=== PATIENT | male | born 1975 | race Caucasian/White ===

== ENCOUNTER 2018-06-04 11:29 | Emergency (ER) | payer OTHER, SELFPAY ==
[2018-06-04 11:31] VITALS: BP 154/98; PULSE 70; RESP 16; TEMP 36.8; O2SAT 98; BMI 32.8
[2018-06-04 11:43] VITALS: O2SAT 97
--- NOTE | 2018-06-04 11:43 | RAD_ITS ---
STUDY: X-RAY CHEST REASON FOR EXAM: Male, 42 years old. Chest pain TECHNIQUE: Single AP portable view of the chest. COMPARISON: None. FINDINGS: Cardiac monitoring leads overlie the chest. The lungs are clear and expanded. There is no demonstrated pleural abnormality. Normal size heart. Normal mediastinum and shola. Normal visualized pulmonary arteries. Normal visualized aortic arch and descending thoracic aorta. Normal visualized thoracic spine. Normal visualized ribs, clavicles, and shoulders. There is no demonstrated abnormality of the visualized soft tissue structures of the upper abdomen. RAD/Chest 1 View (Portable) IMPRESSION: Normal x-ray examination of the chest. Electronically Signed: Colt Clemente DO at 12:13 EDT Tel , Service support ,
--- NOTE | 2018-06-04 11:43 | EKG12_ITS ---
Test Reason : CP Blood Pressure : / mmHG Vent. Rate : 063 BPM Atrial Rate : 063 BPM P-R Int : 172 ms QRS Dur : 086 ms QT Int : 406 ms P-R-T Axes : 040 000 -14 degrees QTc Int : 415 ms Normal sinus rhythm Normal ECG Confirmed by ALEIDA HARRIS, CHAPINCITO ([id number]), book or script editor DEJAH KOCH ([id number]) on 06/05/2018 12:59:29 PM Referred By: LUIS ALFREDO Confirmed By:CHAPINCITO SHIN MD
[2018-06-04] MEDS: Aspirin 81 MG TAB.CHEW 324 MG PO (12:01)
[2018-06-04] MEDS: 0.9% Normal Saline 1,000 ML 1000 ML IV (12:06)
[2018-06-04 12:19] LABS: Absolute Lymphocyte Count 2.01 X10^3/ul (0.83-4.51); Absolute Neutrophil Count 4.5 X10^3/uL (2.0-7.7); Basophil# 0.02 X10^3/uL; Basophil% 0.3 % (0-1); Eosinophil# 0.27 X10^3/uL; Eosinophils% 3.6 % (0-5); Hematocrit 43.4 % (40-54); Lymphocyte # 2.01 X10^3/ul (4.0); Lymphocyte % 26.8 % (19-41); Mean Corp Hgb Conc 34.6 g/gl (32-36); Mean Corpuscular Hgb 30.6 pg (27.0-32.0); Mean Corpuscular Volume 88.6 fL (80-94); Mean Platelet Vol. 9.4 fl (6.2-12.0); Monocyte# 0.69 X10^3/uL; Monocyte% 9.2 % (0-10); Neutrophil # 4.49 X10^3/uL (2.7-7.7); Neutrophil % 59.8 % (47-70); Platelet Count 180 K/mm3 (150-450); RBC Distribution Width CV 12.8 % (11.6-14.6); RBC Distribution Width SD 40.8 fl (35.1-43.9); White Blood Count 7.5 K/mm3 (4.4-11.0)
[2018-06-04 12:29] LABS: Anion Gap 6 (5-15); BUN 15 mg/dL (7-18); BUN/Creat Ratio 14.2 RATIO (10-20); Calcium,Total 8.5 mg/dL (8.5-10.1); Chloride 109 mmol/L (98-107); Creatinine, Serum 1.06 mg/dL (0.70-1.30); EST Glomerular Filtration Rate 80 mL/min (>60); Est Glom Filt Rate - Afr Amer 97 mL/min (>60); Estimated Creatinine Clearance 94.72 ml/min; Glucose 98 mg/dL (74-106); Potassium 3.7 mmol/L (3.5-5.1); Sodium Level 141 mmol/L (136-145)
[2018-06-04 12:35] LABS: POSITIVE COUNT NO; POSITIVE DIFFERENTIAL NO; POSITIVE MORPHOLOGY NO
--- NOTE | 2018-06-04 12:47 | EKG12_ITS ---
Test Reason : REPEAT Blood Pressure : / mmHG Vent. Rate : 057 BPM Atrial Rate : 057 BPM P-R Int : 192 ms QRS Dur : 086 ms QT Int : 414 ms P-R-T Axes : 037 008 -12 degrees QTc Int : 402 ms Sinus bradycardia Otherwise normal ECG Confirmed by ALEIDA HARRIS, CHAPINCITO ([id number]), communications editor DEJAH KOCH ([id number]) on 06/05/2018 12:59:42 PM Referred By: LUIS ALFREDO Confirmed By:CHAPINCITO SHIN MD
[2018-06-04 13:18] VITALS: BP 141/96; PULSE 75; RESP 13; O2SAT 100
[2018-06-04 14:08] VITALS: BP 145/99; PULSE 64; RESP 17; O2SAT 98
--- NOTE | 2018-06-04 14:41 | ED.DCSUM_ITS ---
- ER Visit Summary Date of Service: 06/04/18 Chief Complaint: Chest pain History of Present Illness: The patient is a [address] Kate. He reports that while undergoing light activity at 930 this morning he had the onset of a right-sided chest pain lasted 30-35 minutes. It was a sharp pain. Lasted approximately 30-35 minutes. It was worsened with movement of his right arm or torso. The pain is 10 and 10 at worst and is 1 out of 10 currently. States that he did make him nauseated, short of breath, diaphoretic. Reports that he has had this on and off for the past year. Is never been this severe. It is not related to exertion. Denies any chest pain or change in dyspnea exertion in the past month. No ankle swelling or calf pain. No personal family history of DVT. No recent travel. Physical Examination: Vitals: Stable. Afebrile. General: Well-nourished and well-developed. Head: Normocephalic atraumatic. Neck: Supple, no lymphadenopathy. No JVD. Nontender. Cardiovascular: Regular rate and rhythm. No murmurs. Respiratory: No respiratory distress. Clear to auscultation bilaterally. Chest is nontender. Abdominal: Soft, nontender, nondistended, normal bowel sounds. No guarding, rebound, or peritoneal signs. Back: Nontender. Extremities: Nontender, no edema. Skin: Normal color, no rash. Neurologic: Alert and oriented ?3. Cranial nerves II through XII are intact. Normal strength and sensation. Psych: Normal affect. Test Results: EKG is sinus at 63 with no acute changes. Repeat EKG is unchanged. Initial troponin is negative. Repeat troponin is negative. Chem-7 is more for chloride 109. CBC is normal. Chest x-ray is normal. Emergency Department Course and Treatment: Patient was treated with a dose of aspirin. He has had no further chest pain while here. Treatment Plan: Patient be discharged instructions follow-up his primary care physician as soon as possible for further evaluation. Return to the emergency department for any worsening symptoms. Disposition: To home in improved and stable condition. Impression: 1. Atypical chest pain. 2. LISA score of 0. This note was generated with [employer] dictation software. It may contain incorrect words, spelling, and punctuation that were not noted in review of the chart prior to signing ED Disposition - Plan for ED Patient: Disposition: Home or Assisted Living Chief Complaint: Chest Pain Instructions: ED Chest Pain Atypical Unkn Cause Referrals: Rashad Kate MD [Primary Care Provider] - 1-2 Days if not improving
[2018-06-04 15:07] VITALS: BP 135/90; BP 139/90; PULSE 72; RESP 20; O2SAT 97
== END 2018-06-04 15:08 | disposition home or self-care (01) ==
PROVIDERS: Emergency Provider Emergency Medicine; Family Provider Family Medicine; PCP Family Medicine
DX: R07.89 Other chest pain (principal); R06.00 Dyspnea, unspecified; R06.02 Shortness of breath
CPT/HCPCS: 36415; 71045; 80048; 84484; 85025; 93005; 96360; 96361; 99285; J7030; A4216

== ENCOUNTER 2023-04-04 17:01 | Emergency (ER) | payer OTHER, SELFPAY ==
[2023-04-04 17:02] VITALS: BP 148/78; PULSE 75; RESP 16; TEMP 36.9; O2SAT 98; BMI 33.8
--- NOTE | 2023-04-04 17:30 | EX.ED.DYSGE1 ---
HPI <GABBIE Antonio - Last Filed: 04/04/23 20:16> History of Present Illness Chief Complaint: Complaint Narrative Narrative: Patient presenting today due to increased urinary frequency and flank pain that he has had for the past 3 days. He states that the flank pain has been bilateral up until today where it is now located on the left side. He states that the pain seems to go away when he drinks a lot of water and urinates. He denies any dysuria or hematuria. He denies any fever, chills, penile discharge, history of kidney stones, abdominal pain, injury to his back, nausea, and vomiting. PFSH <GABBIE Antonio - Last Filed: 04/04/23 20:16> [facility] Medical History Back pain Home Medications NK 06/04/18 [History Last Taken Unknown] Allergy/AdvReac Type Severity Reaction Status Date / Time codeine Allergy HALLUCINATI Verified 04/04/23 17:05 ONS Social History Smoking Status: Never smoker ROS <GABBIE Antonio - Last Filed: 04/04/23 20:16> ROS ED Constitutional Constitutional ED: Denies chills, fever(s) or sweats Cardiovascular Cardiovascular: Denies chest pain Respiratory/Chest Respiratory/Chest: Denies cough or dyspnea Gastrointestinal Gastrointestinal: Denies abdominal pain, nausea or vomiting Genitourinary Genitourinary ED: Reports urinary frequency; Denies dysuria or hematuria Musculoskeletal Musculoskeletal: Reports back pain; Denies arthralgias or myalgias Integumentary Denies rash Neurologic Neurologic: Denies weakness Allergic/Immunologic Allergic/Immunologic ED: Denies urticaria EXAM <GABBIE Antonio - Last Filed: 04/04/23 20:16> Physical Exam Const Vital Signs: 04/04/23 17:02 Temperature 98.4 F Temperature Source Temporal Pulse Rate 75 Respiratory Rate 16 Blood Pressure 148/78 H Blood Pressure Mean 101 Pulse Ox 98 Oxygen Delivery Method Room Air Positive well nourished, well developed and no apparent distress General Appearance ED: well developed HEENT Reports normocephalic and head/scalp atraumatic Mouth ED: Yes moist mucous membranes normal Eyes PERRL and EOMs intact bilaterally Neck full ROM and supple Chest Wall inspection of chest normal Resp normal respiratory effort and clear to auscultation bilaterally Cardio regular rate and regular rhythm GI soft to palpation, non-tender, non-distended and no masses Back/Spine no CVA tenderness, normal ROM and normal to inspection General Back: Negative for CVA tenderness Thoracic Spine / Upper Back: Negative for thoracic spinal tenderness Lumbar Spine / Lower Back: Negative for lumbar spinal tenderness Extremity normal to inspection and full ROM Neuro oriented x3, CN's II-XII intact bilaterally, moves all extremities, no focal motor deficits and no sensory deficits noted Sensorium / Orientation: awake and alert Psych mental status grossly normal and thought process normal Skin no rashes or lesions noted and no wounds <Dr. Chinyere Leon DO - Last Filed: 04/08/23 13:54> Physical Exam Const Vital Signs: 04/04/23 17:02 Temperature 98.4 F Temperature Source Temporal Pulse Rate 75 Respiratory Rate 16 Blood Pressure 148/78 H Blood Pressure Mean 101 Pulse Ox 98 Oxygen Delivery Method Room Air MDM <GABBIE Antonio - Last Filed: 04/04/23 20:16> [facility] Narrative Medical decision making narrative: Patient presenting today due to increased urinary frequency and bilateral flank pain that he has had for the past 3 days. Today, the pain is now localized to the left flank only. The pain seems to go away when he drinks a lot of water. He does not have a history of UTIs or kidney stones. No CVA tenderness bilaterally or midline back tenderness. He is well-appearing and in no acute distress. He is afebrile. UA will be obtained to rule out UTI, will be obtained to rule out leukocytosis, anemia, electrolyte abnormality, and to assess kidney function. CT of the abdomen and pelvis without contrast will be obtained to rule out kidney stone and other abdominal etiology. Labs and urine are unremarkable and CT is unremarkable aside from fatty liver. I think patient's pain is likely musculoskeletal. He has been given supportive care measures and is to take anti-inflammatories for pain as needed. Does have a history of back spasms. He has been given return instructions and will be discharged home in stable condition. He is to follow-up with his PCP. He is comfortable with plan. Lab Data Attestation: I reviewed the patient's lab results. Labs: Laboratory Results - last 24 hr 04/04/23 04/04/23 04/04/23 18:10 18:46 18:46 WBC 8.4 RBC 4.97 Hgb 15.3 Hct 44.7 MCV 89.9 MCH 30.8 MCHC 34.2 RDW Std Deviation 39.7 RDW Coeff of Jeni 12.2 Plt Count 257 MPV 9.8 Immature Gran % (Auto) 0.400 Neut % (Auto) 51.9 Lymph % (Auto) 31.3 Eddy % (Auto) 10.9 H Eos % (Auto) 4.8 Baso % (Auto) 0.7 Absolute Neuts (auto) 4.3 Absolute Lymphs (auto) 2.61 Nucleated RBC % 0 Sodium 141 Potassium 3.8 Chloride 110 H Carbon Dioxide 24.0 Anion Gap 7 BUN 20 H Creatinine 0.96 Estim Creat Clear Calc 99.14 Est GFR (MDRD) Af Amer 107 Est GFR (MDRD) Non-Af 88 BUN/Creatinine Ratio 20.9 H Glucose 95 Calcium 9.9 Urine Color Yellow Urine Clarity Clear Urine pH 5.0 Ur Specific [place] 1.025 Urine Protein 15 H Urine Glucose (UA) Normal Urine Ketones Negative Urine Occult Blood Negative Urine Nitrite Negative Urine Bilirubin Negative Urine Urobilinogen Normal Ur Leukocyte Esterase Negative Urine RBC 0 SEEN Urine WBC 0 SEEN Ur Squamous Epith Cells 0 SEEN Urine Bacteria 0 SEEN Urine Mucus 0 SEEN Radiography Diagnostic Testing: Clinical Impression(s) from Imaging Studies Abdomen/Pelvis CT 04/04/23 19:00 IMPRESSION: 1. Enlarged fatty infiltrated liver. 2. No evidence of renal, ureteral abnormality. 3. Mild splenomegaly. 4. No acute intra-abdominal or pelvic process. Electronically Signed: Raul Hess DO at 19:24 EDT Reading Location ID and State: [address] [place] [address] Tel [phone], Service support , Image also reviewed and interpreted by attending ED physician. <Dr. Chinyere Leon DO - Last Filed: 04/08/23 13:54> [facility] Narrative Medical decision making narrative: Patient presenting today due to increased urinary frequency and bilateral flank pain that he has had for the past 3 days. Today, the pain is now localized to the left flank only. The pain seems to go away when he drinks a lot of water. He does not have a history of UTIs or kidney stones. No CVA tenderness bilaterally or midline back tenderness. He is well-appearing and in no acute distress. He is afebrile. UA will be obtained to rule out UTI, will be obtained to rule out leukocytosis, anemia, electrolyte abnormality, and to assess kidney function. CT of the abdomen and pelvis without contrast will be obtained to rule out kidney stone and other abdominal etiology. Labs and urine are unremarkable and CT is unremarkable aside from fatty liver. I think patient's pain is likely musculoskeletal. He has been given supportive care measures and is to take anti-inflammatories for pain as needed. Does have a history of back spasms. He has been given return instructions and will be discharged home in stable condition. He is to follow-up with his PCP. He is comfortable with plan. I have personally performed a face to face assessment of the patient and have reviewed the ELVIA Note. I performed a substantive portion of the visit including all aspects of the following. My posey findings include: History is patient is a 47-year-old male presenting with bilateral flank pain as well as urinary frequency. 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 He notes drinking water seems to help his pain. Did try taking some aspirin with no relief today. Denies any history of kidney stones or UTIs. Denies any testicular pain or swelling. Pain is not particularly reproducible on exam. Urinalysis is negative for any blood or leukocytosis. Given the negative urine and there is still a chance of call obstructing kidney stone, CT abdomen pelvis as well as basic labs are obtained. Patient's kidney function is normal with a GFR of 88. CBC largely normal. Patient is good distal pulses. CT of the abdomen pelvis does not show any acute process to explain his symptoms. Does have enlarged fatty infiltrated liver which is nonspecific does not explain his presentation. Patient informed of CT findings. Counseled on likely pain is muscle skeletal. Patient notes that he has had cramps in his back before associated with dehydration however this feels little different. Discussed with patient that I would recommend NSAIDs for the time being as the cause of his pain is not clear but I do think it safe for him to go home. He verbalized agreement understand this plan. Patient ambulated out of the emergency room. Other additions or changes: [None] Lab Data Labs: Laboratory Results - last 24 hr 04/04/23 04/04/23 04/04/23 18:10 18:46 18:46 WBC 8.4 RBC 4.97 Hgb 15.3 Hct 44.7 MCV 89.9 MCH 30.8 MCHC 34.2 RDW Std Deviation 39.7 RDW Coeff of Jeni 12.2 Plt Count 257 MPV 9.8 Immature Gran % (Auto) 0.400 Neut % (Auto) 51.9 Lymph % (Auto) 31.3 Eddy % (Auto) 10.9 H Eos % (Auto) 4.8 Baso % (Auto) 0.7 Absolute Neuts (auto) 4.3 Absolute Lymphs (auto) 2.61 Nucleated RBC % 0 Sodium 141 Potassium 3.8 Chloride 110 H Carbon Dioxide 24.0 Anion Gap 7 BUN 20 H Creatinine 0.96 Estim Creat Clear Calc 99.14 Est GFR (MDRD) Af Amer 107 Est GFR (MDRD) Non-Af 88 BUN/Creatinine Ratio 20.9 H Glucose 95 Calcium 9.9 Urine Color Yellow Urine Clarity Clear Urine pH 5.0 Ur Specific [place] 1.025 Urine Protein 15 H Urine Glucose (UA) Normal Urine Ketones Negative Urine Occult Blood Negative Urine Nitrite Negative Urine Bilirubin Negative Urine Urobilinogen Normal Ur Leukocyte Esterase Negative Urine RBC 0 SEEN Urine WBC 0 SEEN Ur Squamous Epith Cells 0 SEEN Urine Bacteria 0 SEEN Urine Mucus 0 SEEN Radiography Diagnostic Testing: Clinical Impression(s) from Imaging Studies Abdomen/Pelvis CT 04/04/23 19:00 IMPRESSION: 1. Enlarged fatty infiltrated liver. 2. No evidence of renal, ureteral abnormality. 3. Mild splenomegaly. 4. No acute intra-abdominal or pelvic process. Electronically Signed: Raul Hess DO at 19:24 EDT Reading Location ID and State: [address] [place] [address] Tel [phone], Service support , Discharge Plan Triage Chief Complaint: Complaint Other Complaint: Back ED Midlevel Provider: Miroslava Keene ED Provider: Chinyere Leon Dx/Rx/DC Orders Clinical Impression: Back pain Instructions: ED Back Pain (Acute or Chronic) Prescriptions: No Action NK Primary Care Provider: Mis Jimenez Referrals: Rashad Flores DO [Med Staff - Active Staff] - As Needed Mis Jimenez MD [Primary Care Provider] - Activity Restrictions/Additional Instructions: Please return for any worsening of your symptoms. Disposition Disposition: Home, Self Care
[2023-04-04 18:16] LABS: Bacteria 0 SEEN /hpf (None Seen); Color, Urine Yellow (Yellow); Glucose, Dipstick Normal (Normal); Ketone-Dipstick Negative (Negative); Leukocyte Esterase-Dipstick Negative /ul (Negative); Mucous, Urine 0 SEEN /hpf (<or=2+); Nitrite-Dipstick Negative (Negative); Occult Blood-Urine Negative /ul (Negative); Protein-Dipstick 15 mg/dl (Negative); Red Blood Cells-Urine 0 SEEN /hpf (0-5); Specific Gravity, Urine 1.025 (1.002-1.030); Squamous Epithelial Cells - UA 0 SEEN /hpf (0-5); Urine Bilirubin Dipstick Negative (Negative); Urine Clarity Clear (Clear); Urine Urobilinogen Normal (Normal); White Blood Cells 0 SEEN /hpf (0-5)
[2023-04-04 18:55] LABS: Absolute Lymphocyte Count 2.61 X10^3/uL (0.83-4.51); Absolute Neutrophil Count 4.3 X10^3/uL (2.0-7.7); Basophil# 0.06 X10^3/uL; Basophil% 0.7 % (0-1); Eosinophils% 4.8 % (0-5); Hematocrit 44.7 % (40-54); Hemoglobin 15.3 g/dL (13.0-16.5); Lymphocyte # 2.61 X10^3/ul (0.83-4.51); Lymphocyte % 31.3 % (19-41); Mean Corp Hgb Conc 34.2 g/dL (32-36); Mean Corpuscular Hgb 30.8 pg (27.0-32.0); Mean Corpuscular Volume 89.9 fL (80-94); Mean Platelet Vol. 9.8 fl (6.2-12.0); Monocyte# 0.91 X10^3/uL; Monocyte% 10.9 % (0-10); NRBC Flagged by Analyzer 0 % (0-5); Neutrophil # 4.34 X10^3/uL (2.7-7.7); Neutrophil % 51.9 % (47-70); Platelet Count 257 K/mm3 (150-450); RBC Distribution Width CV 12.2 % (11.6-14.6); RBC Distribution Width SD 39.7 fl (35.1-43.9); Red Blood Count 4.97 M/mm3 (4.6-6.2); White Blood Count 8.4 K/mm3 (4.4-11.0)
--- NOTE | 2023-04-04 19:00 | CT_ITS ---
STUDY: CT ABDOMEN AND PELVIS WITHOUT CONTRAST REASON FOR EXAM: Male, 47 years old. Left flank pain. RADIATION DOSAGE (If Supplied By Facility): CTDIvol = ( 19.78 ) mGy, DLP = ( 1097.20 ) mGycm TECHNIQUE: Transaxial images were obtained from the dome of the diaphragm to the symphysis pubis without oral contrast, and without intravenous contrast. Sagittal and coronal images were reconstructed. Individualized dose optimization techniques were used for this CT. COMPARISON: None. FINDINGS: The visualized lung bases are unremarkable. The visualized portions of the heart are within normal limits. Hepatic steatosis and hepatomegaly without mass. Normal gallbladder and extrahepatic biliary system. Mild splenomegaly. Normal pancreas. Normal bilateral adrenal glands. Normal right kidney. Normal left kidney. Normal ureters. Normal visualized stomach. Normal small intestine. Findings colonic diverticulosis without acute inflammatory change. The appendix is visualized and appears normal. Normal abdominal aorta. Normal inferior vena cava. Normal retroperitoneum. Normal urinary bladder. Normal prostate. No pelvic lymphadenopathy. No free air or free fluid is seen within the peritoneal cavity. Normal abdominal wall. Mild degenerative changes of the lumbar spine. No fracture or subluxation. CT/Abdomen/Pelvis without Cont IMPRESSION: 1. Enlarged fatty infiltrated liver. 2. No evidence of renal, ureteral abnormality. 3. Mild splenomegaly. 4. No acute intra-abdominal or pelvic process. Electronically Signed: Raul Hess DO at 19:24 EDT Reading Location ID and State: [address] [place] [address] Tel [phone], Service support ,
[2023-04-04 19:07] LABS: Anion Gap 7 (5-15); BUN 20 mg/dL (7-18); BUN/Creat Ratio 20.9 RATIO (10-20); Calcium,Total 9.9 mg/dL (8.5-10.1); Chloride 110 mmol/L (98-107); Creatinine, Serum 0.96 mg/dL (0.70-1.30); EST Glomerular Filtration Rate 88 mL/min (>60); Est Glom Filt Rate - Afr Amer 107 mL/min (>60); Estimated Creatinine Clearance 99.14 ml/min; Glucose 95 mg/dL (74-106); Potassium 3.8 mmol/L (3.5-5.1); Sodium Level 141 mmol/L (136-145)
== END 2023-04-04 20:08 | disposition home or self-care (01) ==
PROVIDERS: Physician Assistant; Emergency Provider Emergency Medicine; PCP Internal Medicine; Visit Provider Emergency Medicine
DX: M54.9 Dorsalgia, unspecified (principal); R35.0 Frequency of micturition; R10.9 Unspecified abdominal pain
CPT/HCPCS: 74176; 80048; 81001; 85025; 99282; A4216

== ENCOUNTER 2023-05-25 22:13 | Emergency (ER) | payer OTHER, SELFPAY ==
[2023-05-25 22:14] VITALS: BP 145/112; PULSE 78; RESP 16; TEMP 36.6; O2SAT 98
--- NOTE | 2023-05-25 23:01 | RAD_ITS ---
INDICATION: pain EXAMINATION/TECHNIQUE: X-RAY - RIGHT XR Knee 3 Views COMPARISON: FINDINGS: SOFT TISSUES: No soft tissue swelling or gas. No radiopaque foreign body. A suprapatellar effusion is noted. BONES/JOINTS: No acute fracture or subluxation.. Normal alignment. Preservation of the joint space.. No sclerotic or destructive changes observed. RAD/Knee 3 Views IMPRESSION: Mild suprapatellar effusion. Electronically Signed: Lanre Rviera DO at 23:36 EDT ,
--- NOTE | 2023-05-25 23:02 | EDS_ITS ---
HPI History of Present Illness Chief Complaint: Lower Extremity Injury Narrative Narrative: Patient is a 47-year-old male who is presenting to the ER with chief complaint of right knee pain. Patient states that he was walking up the steps, then he heard a loud popping noise and had pain in his right knee, lateral aspect. Patient has been having pain in his right knee for the past several months. Patient saw his PCP and has been referred to an orthopedic surgeon who he has an appointment with at the end of May. Patient was seen and evaluated in the office of the PCP, and has been told that he might have a Dixon's cyst. Patient works at [employer]. 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 Patient's had no other fall, no other injury, no other acute complaints. Patient did not take anything for pain besides his Mobic that he normally takes at nighttime for knee pain. Patient's is at bedside. Patient's can drive home. Patient having difficulty time ambulating and bearing weight on the right knee secondary to pain. No significant swelling. No signs of hemarthrosis. No other acute complaints at this time. [facility] Medical History Back pain Home Medications hydrocodone-acetaminophen 5-325mg 5mg-325mg 1 tab PO Q4H PRN PRN Pain 2 days #10 TABLETS 05/25/23 [Rx Last Taken Unknown] Allergy/AdvReac Type Severity Reaction Status Date / Time codeine Allergy HALLUCINATI Verified 05/25/23 22:16 ONS Social History Smoking Status: Never smoker ROS ROS ED ROS Narrative REVIEW OF SYSTEMS: Unless otherwise stated in this report the patient's positive and negative responses for review of systems for constitutional, eyes, ENT, cardiovascular, respiratory, gastrointestinal, neurological, , musculoskeletal, and integument systems and related systems to the presenting problem are either stated in the history of present illness or were not pertinent or were negative for the symptoms and/or complaints related to the presenting medical problem. EXAM Physical Exam Narrative Exam Narrative: Vital signs reviewed and patient is not hypoxic. General: The patient appears well and in no apparent distress. Patient is resting comfortably on cart. Not toxic, lethargic, or listless. Skin: Warm, dry, no pallor noted. There is no rash noted. Head: Normocephalic, atraumatic Eye: Normal conjunctiva, no drainage, EOMI. PERRL. Ears, Nose, Mouth, and Throat: oral mucosa is moist. Nares patent. Cardiovascular: Regular Rate and Rhythm, no murmurs, gallops, or rubs Respiratory: Patient is in no distress, no accessory muscle use, lungs are clear to auscultation, no wheezing, rales or rhonchi Musculoskeletal: The patient has full range of motion of all extremities and joints with no difficulty besides the right knee. Patient has flexion of the right knee to approximately 45 degrees, he does have full extension. Patient has no pain with valgus stress, he does have mild to moderate pain with varus stress. I do not appreciate a anterior drawer sign or posterior drawer sign on this patient's right knee at this time. No signs of hemarthrosis. Patient does have some inferior superior edema. Patient does have mild to moderate pain with active range of motion of the right knee. Range of motion of left knee was compared to the right knee. Unable to completely assess ROM in the ER visit secondary to pain patient has no motor, no sensory deficits. No rash. Neurological: A&O x4, normal speech, no focal neurological deficits. Psychiatric: Cooperative Const Vital Signs: 05/25/23 22:14 05/25/23 23:26 Temperature 98 F Temperature Source Temporal Pulse Rate 78 Respiratory Rate 16 Blood Pressure 145/112 H 152/89 H Blood Pressure Mean 123 110 Pulse Ox 98 Oxygen Delivery Method Room Air MDM MDM MDM Narrative Medical decision making narrative: Patient had a elastic knee brace on his right knee prior to arrival. Patient was placed in knee immobilizer and crutches to the right knee. Splint was assisted with Dr. Lacy. The patient was neurovascular intact before and after the splint was placed. The affected bones/injured area had proper alignment in a splint. Education on splint care at home was given at bedside. Patient and family had no questions at disposition. Work note was given. Patient will follow-up with orthopedic surgeon scheduled at the end of May and another orthopedic surgeon name and number has been provided at discharge. No questions. Work note given Treatment and Re-Evaluation :: Patient's right knee x-ray was evaluated and examined by Dr. Lacy. Patient has no signs of acute fracture, dislocation, or acute abnormality. Small joint effusion is noted. Discharge Plan Triage Chief Complaint: Lower Extremity Injury ED Provider: Rahsad Lacy Dx/Rx/DC Orders Clinical Impression: Acute internal derangement of right knee, Acute pain of right knee Instructions: How Your Knee Works, Treating?Strains and Sprains, Knee Range of Motion Exercises, ED Meniscal Injury Knee Poss, ED Knee Pain of Uncertain Cause, ED RICE Prescriptions: New hydrocodone-acetaminophen [hydrocodone-acetaminophen] 5-325 mg tablet 1 tab PO Q4H PRN PRN (Reason: Pain) 2 Days Qty: 10 0RF Stand Alone Forms: ED Work / School Excuse Primary Care Provider: Mis Jimenez Referrals: Mis Jimenez MD [Primary Care Provider] - Rafal Gardner DO [Med Staff - Active Staff] - Disposition Disposition: Home, Self Care
[2023-05-25] MEDS: HYDROcodone Bitartrate/Apap 5/325 Tablet PO (23:22)
[2023-05-25 23:26] VITALS: BP 152/89; BMI 35.3
--- NOTE | 2023-05-25 23:27 | ED.RN ---
Pt. states he has crutches at home and does not need the crutches we prescribed him.
== END 2023-05-25 23:46 | disposition home or self-care (01) ==
PROVIDERS: Emergency Provider Emergency Medicine; PCP Internal Medicine; Visit Provider Emergency Medicine
DX: M23.91 Unspecified internal derangement of right knee (principal); M25.561 Pain in right knee; M25.461 Effusion, right knee
CPT/HCPCS: 73562; 99283

== ENCOUNTER → 2023-05-28 | Outpatient (CLI) | payer OTHER, SELFPAY ==
--- NOTE | 2023-05-28 10:54 | VDLE_ITS ---
Reason For Study: RLE PAIN RIGHT GSV is normal. CFV is compressible, spontaneous, phasic, competent and demonstrates normal augmentation. FV is compressible, spontaneous, phasic, competent and demonstrates normal augmentation. POP V is compressible, spontaneous, phasic, competent and demonstrates normal augmentation. T/P Trunk is compressible. PTV is compressible. RT PerV is compressible. Procedure This is a venous duplex using B-mode, color flow and spectral Doppler. Exam performed in department. A preliminary report was called and/or faxed to Jamee CARTWRIGHT @ 11:15 AM @ [phone]. VL/Venous Duplex US, Unilateral Interpretation Summary Deep veins of the right lower extremity are patent and compressible segmentally . There is no evidence of right lower extremity deep vein thrombosis. The right great sapheno us vein appears patent and compressible segmentally. Ordering Physician: Jamee Angelo Referring Physician: Mis Jimenez Performed By: Cindy Carr, TAMMIE, RVT
== END | disposition home or self-care (01) ==
LOC: CVS 10:51
PROVIDERS: PCP Internal Medicine; Referring Provider Physician Assistant; Visit Provider Physician Assistant
DX: M79.661 Pain in right lower leg (principal)
CPT/HCPCS: 93971

== ENCOUNTER 2025-04-25 10:16 | Emergency (ER) | payer OTHER, SELFPAY ==
[2025-04-25 10:16] VITALS: BP 156/96; PULSE 65; RESP 16; TEMP 36.7; O2SAT 97
--- NOTE | 2025-04-25 10:27 | EKG12_ITS ---
Test Reason : CP Blood Pressure : */* mmHG Vent. Rate : 66 BPM Atrial Rate : 66 BPM P-R Int : 172 ms QRS Dur : 92 ms QT Int : 390 ms P-R-T Axes : 36 -31 13 degrees QTcB Int : 408 ms Normal sinus rhythm Left axis deviation Abnormal ECG Confirmed by Lalito Ham ([id number]), copy editor ELVIS YORK ([id number]) on 04/26/2025 11:11:51 AM Referred By: Confirmed By: Lalito Ham
--- NOTE | 2025-04-25 10:35 | ED.VIS.CHEST ---
HPI History of Present Illness Chief Complaint: Chest Pain Narrative Narrative: Chief complaint and HPI: Chest pain. 49-year-old male with no past medical history presents for evaluation of chest pain. Onset of symptoms several days. Patient does not remember how it started. Describes it is dull with occasional sharpness. Does not radiate to the jaw or down the arm. Left-sided. Triage note states right sided but it is left-sided. Denies any fever, chills, URI symptoms, shortness of breath, cough, abdominal pain, nausea, vomiting. Denies any tobacco abuse. Denies any bilateral lower extremity pain or swelling. Nothing makes it worse or better. Denies any trauma. Review of systems: See HPI Medications: As listed on the chart Allergies: As listed on the chart PFSH: Per chart Vital signs: As listed on the chart. Reviewed. Physical exam: Gen: A&O x3, NAD Head: Normocephalic, atraumatic Eyes: No sclera icterus, conjunctiva clear ENT: Moist mucous membranes Neck: Trachea midline, No JVD, full range of motion CV: RRR, no murmurs, no peripheral edema, chest pain nonreproducible Resp: Lungs CTA BL, no w/r/c GI: Abd soft, non-distended, non-tender, no r/r/g Musc: Full ROM, no deformity Skin: Warm, dry Neuro: Alert, oriented, grossly intact, sensation intact Psych: Cooperative, appropriate mood and affect [facility] Medical History Back pain Home Medications ?Medication ?Instructions ?Recorded ?Last Taken ?Type NK 04/25/25 Unknown History Allergy/AdvReac Type Severity Reaction Status Date / Time codeine Allergy HALLUCINATI Verified 04/25/25 10:16 ONS Social History Smoking Status: Never smoker EXAM Physical Exam Const Vital Signs: 04/25/25 10:16 04/25/25 11:16 04/25/25 12:00 Temperature 98.0 F Temperature Source Oral Pulse Rate 65 59 L 62 Respiratory Rate 16 21 H 22 H Blood Pressure 156/96 H 143/92 H 137/88 H Blood Pressure Mean 116 109 104 Pulse Ox 97 98 97 Oxygen Delivery Method Room Air Room Air Room Air 04/25/25 13:00 04/25/25 14:00 04/25/25 14:19 Temperature 98 F Temperature Source Pulse Rate 63 87 58 L Respiratory Rate 16 16 14 Blood Pressure 124/88 H 128/76 H 128/76 H Blood Pressure Mean 100 93 93 Pulse Ox 97 98 100 Oxygen Delivery Method MDM MDM MDM Narrative Medical decision making narrative: 49-year-old male with no past medical history presents for evaluation of chest pain. Onset of symptoms several days. Patient does not remember how it started. Describes it is dull with occasional sharpness. Does not radiate and nonreproducible. On presentation, patient is mildly hypertensive but otherwise vital stable. In no acute distress. Differential diagnosis includes but is not limited to hypertension urgency, ACS, electrolyte abnormality, PE, pneumonia, myofascial spasm. Aspirin ordered. Cardiac workup ordered. EKG and chest x-ray reviewed see below. CBC without leukocytosis or anemia. D-dimer unremarkable. BNP unremarkable. Troponin unremarkable x 2. At this point in time, no clear etiology to explain patient's chest pain. Heart score is a 1 for age. Places patient at low risk for ACS. Patient and significant other were updated of all the results. His blood pressure is improving. Recommend follow-up with PCP for hypertension as well as chest pain. Return precautions discussed. Patient stable to discharge home. EKG: Interpreted by me/EM physician: EKG shows normal sinus rhythm without any acute ischemic changes. Heart rate 66. Diagnostic: Interpreted by me/EM physician: Chest x-ray without pneumonia, effusion, cardiomegaly, pneumothorax Impression: 1. Chest pain 2. Hypertension, to be diagnosed Lab Data Labs: Laboratory Results - last 24 hr 04/25/25 04/25/25 10:55 12:55 WBC 7.6 RBC 5.24 Hgb 16.3 Hct 45.7 MCV 87.2 MCH 31.1 MCHC 35.7 RDW Std Deviation 38.7 RDW Coeff of Jeni 12.3 Plt Count 209 MPV 9.4 Immature Gran % (Auto) 0.400 Neut % (Auto) 57.1 Lymph % (Auto) 27.6 [place] % (Auto) 8.7 Eos % (Auto) 5.4 H Baso % (Auto) 0.8 Absolute Neuts (auto) 4.3 Absolute Lymphs (auto) 2.09 Nucleated RBC % 0 D-Dimer Quant (PE/DVT) 0.27 Sodium 140 Potassium 4.1 Chloride 107 Carbon Dioxide 21.6 Anion Gap 12 BUN 13 Creatinine 0.88 Est GFR (MDRD) Non-Af 104 BUN/Creatinine Ratio 14.9 Glucose 127 H Calcium 10.6 Troponin T High Sens 11 Troponin T Hi Sens 2 Hr 8 Radiography Diagnostic Testing: Clinical Impression(s) from Imaging Studies Chest X-Ray 04/25/25 11:35 IMPRESSION: No acute process detected. Reading [facility] Discharge Plan Triage Chief Complaint: Chest Pain ED Provider: Vinny Enciso Dx/Rx/DC Orders Clinical Impression: Chest pain Instructions: Chest Pain [facility] Ch Prescriptions: No Action NK Primary Care Provider: Mis Jimenez Referrals: Mis Jimenez MD [Primary Care Provider] - 3-5 Days Activity Restrictions/Additional Instructions: Follow-up with primary care physician. Return back to the ED if symptoms change or worsen. Print Language: Turkish Disposition Disposition: Home, Self Care Discharge Date/Time: 04/25/25 14:23
[2025-04-25 11:06] LABS: Absolute Lymphocyte Count 2.09 X10^3/uL (0.83-4.51); Absolute Neutrophil Count 4.3 X10^3/uL (2.0-7.7); Basophil# 0.06 X10^3/uL; Basophil% 0.8 % (0-1); Eosinophil# 0.41 X10^3/uL; Eosinophils% 5.4 % (0-5); Hematocrit 45.7 % (40-54); Hemoglobin 16.3 g/dL (13.0-16.5); Lymphocyte # 2.09 X10^3/ul (0.83-4.51); Lymphocyte % 27.6 % (19-41); Mean Corp Hgb Conc 35.7 g/dL (32-36); Mean Corpuscular Hgb 31.1 pg (27.0-32.0); Mean Corpuscular Volume 87.2 fL (80-94); Mean Platelet Vol. 9.4 fl (6.2-12.0); Monocyte# 0.66 X10^3/uL; Monocyte% 8.7 % (0-10); NRBC Flagged by Analyzer 0 % (0-5); Neutrophil # 4.33 X10^3/uL (2.7-7.7); Neutrophil % 57.1 % (47-70); Platelet Count 209 K/mm3 (150-450); RBC Distribution Width CV 12.3 % (11.6-14.6); RBC Distribution Width SD 38.7 fl (35.1-43.9); Red Blood Count 5.24 M/mm3 (4.6-6.2); White Blood Count 7.6 K/mm3 (4.4-11.0)
[2025-04-25 11:16] VITALS: BP 143/92; PULSE 59; RESP 21; O2SAT 98
[2025-04-25] MEDS: Aspirin 81 MG TAB.CHEW 324 MG PO (11:29)
--- NOTE | 2025-04-25 11:35 | RAD_ITS ---
PROCEDURE: Chest PA and lateral 04/25/2025 REASON FOR EXAM: CHEST PAIN TECHNIQUE: Frontal and lateral views of the chest. COMPARISON: June 04, 2018 chest radiograph FINDINGS: Hardware: EKG lead wires Heart: Normal size Mediastinum: Unremarkable Lungs: Clear Bones: No aggressive lesions RAD/Chest PA and Lateral IMPRESSION: No acute process detected. Reading [facility]
[2025-04-25 11:39] LABS: D-Dimer Quantitative (DVT/PE) 0.27 FEU/ug/m (0.27-0.49)
[2025-04-25 11:46] LABS: Anion Gap 12 (5-15); BUN 13 mg/dL (4-19); BUN/Creat Ratio 14.9 RATIO (10-20); Calcium,Total 10.6 mg/dL (7.6-11.0); Carbon Dioxide 21.6 mmol/L (21.0-32.0); Chloride 107 mmol/L (98-108); Creatinine, Serum 0.88 mg/dL (0.70-1.20); EST Glomerular Filtration Rate 104 (>60); Glucose 127 mg/dL (70-99); Potassium 4.1 mmol/L (3.3-5.1); Sodium Level 140 mmol/L (133-145); Troponin T High Sensitivity 11 ng/L (<=22)
[2025-04-25 12:00] VITALS: BP 137/88; PULSE 62; RESP 22; O2SAT 97
[2025-04-25 13:00] VITALS: BP 124/88; PULSE 63; RESP 16; O2SAT 97
[2025-04-25 13:44] LABS: Troponin T High Sens 2 HR 8 ng/L (<=22)
[2025-04-25 14:00] VITALS: BP 128/76; PULSE 87; RESP 16; O2SAT 98
[2025-04-25 14:19] VITALS: BP 128/76; PULSE 58; RESP 14; TEMP 36.6; O2SAT 100
--- OUTSIDE RECORDS SUMMARY | 2025-04-25 22:56 | XMS RPT_ITS | CCD ---
Author Organization [facility] Care Team Providers Care Data Librarian Name Role Phone Lewis Jimenez MD Primary Care Provider Required, No Pcp Unavailable Unavailable Bilderback Farheen Unavailable Unavailabl e BilderFarheen ortiz Attending Unavailable Lewis Jimenez MD Primary Care Provider Dr. Lewis Jimenez Primary Care Provider Dr. Jourdan Mays Attending Provider Lewis Jimenez Primary Care Unavailable Jamee Angelo Attending Unavailable Jamee Angelo Referring Unavailable Chinyere Leon Attending Unavailable Barbara Lewis Adán Primary Care Unavailable Barbara Lewis Adán Primary Care Unavailable Rashad Lacy Attending Unavailable Barbara, Lewis Adán Primary Care Unavailable CHUNG, PRETI Referring Unavailable Jourdan Mays Attending Unavailable Lewis Jimenez MD Primary Care Provider Tan MEAT APPRENTICE.HAT AND CAP SEWER, Johnny Unavailable Marilyn MEAT APPRENTICE.EDUCATION AND OUTREACH COORDINATOR, Rebecca Unavailable LEWIS JIMENEZ Attending Unavailable MADDOX, JOHNNY Referring Unavailable TALAMPAS, LEWIS Adán Primary Care Unavailable MADDOX, JOHNNY Attending Unavailable SELF Referring Unavailable ADILIAAMPBETTE, LEWIS Adán Primary Care Unavailable DRAKE NOYOLA Attending Unavailable LEWIS JIMENEZ Referring Unavailable TALAMPBETTE, LEWIS Adán Primary Care Unavailable Dr. Lewis Jimenez MD Primary Care Provider Dr. Vinny Enciso DO Emergency Provider Allergies Allergy Classification Reported Allergen(s) Allergy Type Date of Onset Reaction(s) Facility (16 sources) Codeine; Translations: [CODEINE] Drug Allergy 6 Other, HALLUCINATIONS [facility] Work Phone: (1 source) Codeine Drug Allergy 3 [facility] Repository Medications Current Medications Medication Drug Class(es) Dates Sig (Normalized) Sig (Original) [id number] 200 actuat albuterol 0.09 mg/actuat metered dose inhaler (2 sources) beta2-Adrenergic Agonist Start: 02-14-2025 take 1-2 puff(s) by inhalation every four hours as needed for wheezing albuterol HFA (PROVENTIL HFA) 90 mcg/actuation inhaler Indications: Sinobronchitis Inhale 1-2 Puffs as instructed every 4 hours as needed for wheezing/shortness of breath. 1 Each 02/14/2025 Active amoxicillin 875 mg / clavulanate 125 mg oral tablet (1 source) Penicillin-class Antibacterial Start: 02-14-2025 End: 02-21-2025 take 1 tablet by mouth twice daily at mealtime amoxicillin-clavulan ate potassium (AUGMENTIN) 875-125 mg per tablet Indications: Sinobronchitis Take 1 tablet by mouth two times a day for 7 days. Take with food 14 tablet 02/14/2025 02/21/2025 Active meloxicam 15 mg oral tablet (1 source) Nonsteroidal Anti-inflammatory Drug Start: 05-22-2023 End: 06-21-2023 take 1 tablet by mouth once daily at mealtime meloxicam (MOBIC) 15 mg tablet Indications: Acute pain of right knee Take 1 tablet by mouth once daily. With food. 30 tablet 0 05/22/2023 06/21/2023 Active Comment on above: Take 1 tablet by jose th once daily. With food. [place] (Nk) (1 source) Start: 04-25-2025 [place] (Nk) Active April 25, 2025 12:00am predniSONE 10 mg oral tablet (2 sources) Start: 02-14-2025 End: 02-23-2025 predniSONE (DELTASONE) 10 mg tablet Indications: Sinobronchitis Take 4 tabs daily for 3 days, then 2 tabs daily for 3 days, then 1 tab daily for 3 days with food. 21 tablet 02/14/2025 02/23/2025 Active Start: 05-07-2023 End: 05-16-2023 predniSONE (DELTASONE) 10 mg tablet Indications: Acute pain of right knee Take 4 tabs daily for 3 days, then 2 tabs daily for 3 days, then 1 tab daily for 3 days with food. 21 tablet 0 05/07/2023 05/16/2023 Active Comment on above: Take 4 tabs daily fo r 3 days, then 2 tabs daily for 3 days, then 1 tab daily for 3 days with food. Completed/Discontinued Medications Medication Drug Class(es) Dates Sig (Normalized) Sig (Original) acetaminophen 325 mg / HYDROcodone bitartrate 5 mg oral tablet (3 sources) Opioid Agonist Start: 05-25-2023 End: 04-25-2025 Hydrocodone-Acetami nophen 5-325 mg tablet Discontinued 1 {tbl} PO EVERY 4 HOURS NEEDED as needed for Pain 10 May 25, 2023 April 25, 2025 10:22am Start: 05-25-2023 take 1 tablet by jose th every four hours as needed Hydrocodone-Acetaminophen Active 1 TABLE T PO EVERY 4 HOURS NEEDED 10 May 25, 2023 amoxicillin 875 mg oral tablet (1 source) Penicillin-class Antibacterial Start: 10-10-2021 End: 10-24-2021 take 1 tablet by mouth every twelve hours amoxicillin (AMOXIL) 875 mg tablet Take 1 tablet by mouth every 12 hours for 14 days. 28 tablet 10/10/2021 10/24/2021 calcium chloride 0.0014 meq/ml / potassium chloride 0.004 meq/ml / sodium chloride 0.103 meq/ml / sodium lactate 0.028 meq/ml injectable solution (1 source) Start: 07-05-2024 End: 07-05-2024 take 30 mL intravenously every hour 30 mL/hr, INTRAVENOUS, CONTINUOUS, Starting on Fri07/05/24 at 0830, Until Fri07/05/24 at 0917, Preprocedure diphenhydrAMINE (1 source) Histamine-1 Receptor Antagonist Start: 07-05-2024 End: 07-05-2024 12.5-50 mg, INTRAVENOUS, DIRECTED, Starting on Fri07/05/24 at 0900, Until Fri07/05/24 at 1259, DOSING DIRECTED BY PHYSICIAN FOR PROCEDURAL SEDATION ONLY, Intraprocedure 1 ml fentaNYL 0.05 mg/ml injection (1 source) Opioid Agonist Start: 07-05-2024 End: 07-05-2024 25-100 mcg, INTRAVENOUS, DIRECTED, Starting on Fri07/05/24 at 0900, Until Fri07/05/24 at 1259, DOSING DIRECTED BY PHYSICIAN FOR PROCEDURAL SEDATION ONLY, Intraprocedure iv contrast (will be provided with radiology test) (1 source) Start: 10-10-2021 End: 10-11-2021 inject 1 dose intravenously once iv contrast (will be provided with radiology test) MRI Brain Inject, intravenously, once for 1 dose.No IV access, insert saline lock prior to beginning of sedation, infusion, injection of imaging exam.Discontinue saline lock post exam. If Pt. has a central line or IVAD, may access for administration according to line specific nursing protocol.Once exam is complete flush line and de-access according to line specific nursing protocol in the MR contrast administration guidelines link 1 Each 10/10/2021 10/11/2021 5 ml midazolam 1 mg/ml injection (1 source) Benzodiazepine Start: 07-05-2024 End: 07-05-2024 1-5 mg, INTRAVENOUS, DIRECTED, Starting on Fri07/05/24 at 0900, Until Fri07/05/24 at 1259, DOSING DIRECTED BY PHYSICIAN FOR PROCEDURAL SEDATION ONLY, Intraprocedure naproxen sodium 220 mg oral tablet (4 sources) Nonsteroidal Anti-inflammatory Drug Start: 01-27-2014 End: 05-22-2023 take 1 tablet by mouth twice daily at mealtime naproxen sodium (ALEVE) 220 mg tablet Take 1 tablet by mouth twice daily with meals. TAKE WITH FOOD 0 01/27/2014 05/22/2023 Discontinued Comment on above: Take 1 tablet by jose th twice daily with meals. TAKE WITH FOOD pantoprazole 40 mg delayed release oral tablet (9 sources) Proton Pump Inhibitor Start: 11-12-2021 End: 02-14-2025 take 1 tablet by mouth once daily pantoprazole DR (PROTONIX) 40 mg tablet Take 1 tablet by mouth once daily. 30 tablet 3 11/12/2021 02/14/2025 Discontinued Comment on above: Take 1 tablet by jose th once daily. Problems Active Problems Problem Classification Problem Date Documented Date Episodic/Chronic Abdominal hernia (1 source) Hiatal hernia; Translations: [Diaphragmatic hernia without obstruction or gangrene] 03-29-2025 Episodic Conditions associated with dizziness or vertigo (1 source) Vertigo; Translations: [Dizziness and giddiness] Episodic Diabetes mellitus without complication (2 sources) Increased glucose level; Translations: [Other abnormal glucose] Onset: 03-09-2025 03-09-2025 Episodic E Codes: Natural/environment (1 source) Exposure to other specified factors, initial encounter; Translations: [Exposure to other specified factors, initial encounter] Onset: 08-21-2022 Episodic Esophageal disorders (2 sources) Gastroesophageal reflux disease without esophagitis; Translations: [Gastro-esophageal reflux disease without esophagitis] Chronic Genitourinary symptoms and ill-defined conditions (1 source) Frequency of micturition; Translations: [Frequency of micturition] Onset: 04-09-2023 Episodic Joint disorders and dislocations; trauma-related (3 sources) Derangement of right knee; Translations: [Unspecified internal derangement of right knee] 05-25-2023 Chronic Nonspecific chest pain (1 source) Chest pain; Translations: [Chest pain, unspecified] 04-25-2025 Episodic Other connective tissue disease (1 source) Pain in right lower leg; Translations: [Pain in right lower leg] Onset: 06-02-2023 Episodic Other ear and sense organ disorders (2 sources) Sensorineural hearing loss, unilateral, left ear, with unrestricted hearing on the contralateral side; Translations: [Sensorineural hearing loss, unilateral] Chronic Other ear and sense organ disorders (1 source) Bilateral hearing loss; Translations: [Unspecified hearing loss, bilateral] 03-10-2024 Chronic Other ear and sense organ disorders (1 source) Otalgia, right ear; Translations: [Otalgia, right ear] Onset: 08-21-2022 Episodic Other injuries and conditions due to external causes (1 source) Foreign body in ear; Translations: [Foreign body in ear] 08-21-2022 Episodic Other injuries and conditions due to external causes (2 sources) Foreign body in right ear, initial encounter; Translations: [Foreign body in right ear, initial encounter] Onset: 08-21-2022 Episodic Other lower respiratory disease (1 source) Cough; Translations: [Cough] Episodic Other lower respiratory disease (2 sources) Snoring; Translations: [Snoring] 03-29-2025 Episodic Other lower respiratory disease (2 sources) Apnea; Translations: [Apnea, not elsewhere classified] 03-29-2025 Episodic Other lower respiratory disease (1 source) Snoring; Translations: [Snoring] Onset: 03-09-2025 Episodic Other lower respiratory disease (1 source) Apnea, not elsewhere classified; Translations: [Witnessed episode of apnea] Onset: 03-09-2025 Episodic Other non-traumatic joint disorders (8 sources) Pain in right knee; Translations: [Pain in joint, lower leg] Onset: 05-26-2023 Episodic Other nutritional; endocrine; and metabolic disorders (2 sources) Obesity caused by energy imbalance; Translations: [Class 1 obesity due to excess calories with body mass index (BMI) of 34.0 to 34.9 in adult, unspecified whether serious comorbidity present] 03-29-2025 Chronic Other nutritional; endocrine; and metabolic disorders (1 source) Other obesity due to excess calories; Translations: [Class 1 obesity due to excess calories with body mass index (BMI) of 34.0 to 34.9 in adult, unspecified whether serious comorbidity present] Onset: 03-09-2025 Chronic Other nutritional; endocrine; and metabolic disorders (1 source) Body mass index (BMI) 34.0-34.9, adult; Translations: [Class 1 obesity due to excess calories with body mass index (BMI) of 34.0 to 34.9 in adult, unspecified whether serious comorbidity present] Onset: 03-09-2025 Chronic Other nutritional; endocrine; and metabolic disorders (1 source) History of primary hyperparathyroidism; Translations: [Personal history of other endocrine, nutritional and metabolic disease] 03-29-2025 Episodic Other screening for suspected conditions (not mental disorders or infectious disease) (13 sources) Patient encounter status; Translations: [Encounter for screening for malignant neoplasm of colon] Onset: 07-05-2024 02-23-2024 Episodic Other upper respiratory infections (1 source) Chronic sinusitis; Translations: [Chronic sinusitis, unspecified] 02-14-2025 Chronic Other upper respiratory infections (1 source) Laryngitis; Translations: [Acute laryngitis] Episodic Residual codes; unclassified (1 source) History of parathyroidectomy; Translations: [Other specified postprocedural states] 03-29-2025 Episodic Screening and history of mental health and substance abuse codes (2 sources) Encounter for screening for depression; Translations: [Encounter for screening examination for other mental health and behavioral disorders] Onset: 03-09-2025 Episodic Spondylosis; intervertebral disc disorders; other back problems (14 sources) Neck pain; Translations: [Cervicalgia] Onset: 10-29-2013 10-29-2013 Episodic Unclassified (2 sources) ACCIDENT AT WORK 08-21-2022 Comment on above: ACCIDENT AT WORK Unclassified (1 source) Ear foreign body 08-21-2022 Unclassified (1 source) Class 1 obesity due to excess calories with body mass index (BMI) of 34.0 to 34.9 in adult, unspecified whether serious comorbidity present; Translations: [Class 1 obesity due to excess calories with body mass index (BMI) of 34.0 to 34.9 in adult, unspecified whether serious comorbidity present] Onset: 03-09-2025 Past or Other Problems Problem Classification Problem Date Documented Da te Episodic/Chronic Neoplasms of unspecified nature or uncertain behavior (11 sources) Neoplasm of uncertain behavior of bone; Translations: [Neoplasm of uncertain behavior of bone and articular cartilage] Onset: 09-07-2017 09-07-2017 Episodic Other connective tissue disease (11 sources) Plantar fasciitis of left foot; Translations: [Plantar fascial fibromatosis] Onset: 06-12-2020 06-12-2020 Episodic Results Test Name Value Interpretation Reference Range Facility Absolute lymphocyte countOrd ered By: Vinny Enciso on 04-25-2025 Lymphocytes Auto (Unsp spec) [#/Vol] 2.09 10*3/uL 0.83-4.51 [facility] Absolute neutrophil countOrd ered By: Vinny Enciso on 04-25-2025 Neutrophils (Bld) [#/Vol] 4.3 10*3/uL 2.0-7.7 [facility] Anion gap in Serum or Plasma Ordered By: Vinny Enciso on 04-25-2025 Anion gap [Moles/Vol] 12 mmol/L 5-15 [facility] Automated lymphocyte count a s percentage of total leukocytesOrdered By: Vinny Enciso on 04-25-2025 Lymphocytes/100 WBC Auto (Unsp spec) 27.6 % 19-41 [facility] BUN/creatinine ratioOrdered By: Vinny Enciso on 04-25-2025 Urea nitrogen/Creatinine [Mass ratio] 14.9 mg/mg 10-20 [facility] Basophil percentageOrdered B y: Vinny Enciso on 04-25-2025 Basophils/100 WBC (Bld) 0.8 % 0-1 [facility] Carbon dioxide, total [Moles /volume] in Central venous bloodOrdered By: Vinny Enciso on 04-25-2025 CO2 [Moles/Vol] 21.6 mmol/L 21.0-32.0 [facility] Chloride assayOrdered By: Hugo Enciso on 04-25-2025 Chloride [Moles/Vol] 107 mmol/L 98-108 [facility] Eosinophil percentageOrdered By: Vinny Enciso on 04-25-2025 Eosinophils/100 WBC (Bld) 5.4 % High 0-5 [facility] Erythrocyte distribution wid th ratioOrdered By: Vinny Enciso on 04-25-2025 Erythrocyte distribution width (RBC) [Ratio] 12.3 % 11.6-14.6 [facility] Erythrocyte distribution wid th standard deviationOrdered By: [place] Yaron Juarez on 04-25-2025 Erythrocyte distribution width (RBC) [Ratio] 38.7 fl 35.1-43.9 [facility] Glomerular filtration rate ( GFR) estimation/1.73 sq m using serum, plasma, or whole bOrdered By: Vinny Enciso on 04-25-2025 GFR/1.73 sq M.predicted among non-blacks MDRD (S/P/Bld) [Vol rate/Area] 104 mL/min/{1.73_m2} >60 [facility] Comment on above: mL/min/1.73m2 CKD-EP I Creatinine Equation (2020) Hematocrit Auto (Bld) [Volum e fraction]Ordered By: Vinny Enciso on 06-09-2025 Hematocrit (Bld) [Volume fraction] 45.7 % 40-54 [facility] Hemoglobin measurementOrdere d By: Vinny Enciso on 04-25-2025 Hemoglobin (Bld) [Mass/Vol] 16.3 g/dL 13.0-16.5 [facility] Immature granulocytes/100 WB C Auto (Bld)Ordered By: Vinny Enciso on 04-25-2025 Immature granulocytes/100 WBC (Bld) 0.400 % 0.0-0.9 [facility] Comment on above: IG% - Immature Granu locytes (promyelocytes, myelocytes and metamyelocytes) > 1% indicates that a LEFT SHIFT is Present. MCV (mean corpuscular volume ) determinationOrdered By: Vinny Enciso on 04-25-2025 MCV (RBC) [Entitic vol] 87.2 fL 80-94 [facility] Mean corpuscular hemoglobin (MCH) determinationOrdered By: Vinny Enciso on 04-25-2025 MCH (RBC) [Entitic mass] 31.1 pg 27.0-32.0 [facility] Mean corpuscular hemoglobin concentration (MCHC) determinationOrdered By: Vinny Zaria on 04-25-2025 MCHC (RBC) [Mass/Vol] 35.7 g/dL 32-36 [facility] Mean platelet volume determi nationOrdered By: Vinny Enciso on 04-25-2025 Platelet mean volume (Bld) [Entitic vol] 9.4 fL 6.2-12.0 [facility] Monocyte percentageOrdered B y: Vinny Enciso on 04-25-2025 Monocytes/100 WBC (Bld) 8.7 % 0-10 [facility] Neutrophil percentageOrdered By: [place] Zaria on 04-25-2025 Neutrophils/100 WBC (Bld) 57.1 % 47-70 [facility] Nucleated red blood cell per centageOrdered By: Vinnykaruna Enciso on 04-25-2025 Nucleated RBC/100 WBC (Bld) [Ratio] 0 % 0-5 [facility] Platelet countOrdered By: Hugo Enciso on 04-25-2025 Platelets (Bld) [#/Vol] 209 10*3/uL 150-450 [facility] Potassium measurement (mass/ volume)Ordered By: Vinny Enciso on 04-25-2025 Potassium (Unsp spec) [Mass/Vol] 4.1 mmol/L 3.3-5.1 [facility] RBC Auto (Bld) [#/Vol]Ordere d By: Vinny Enciso on 04-25-2025 RBC (Bld) [#/Vol] 5.24 10*6/uL 4.6-6.2 [facility] Serum creatinine measurement (mass/volume)Ordered By: Vinny Enciso on 04-25-2025 Creatinine [Mass/Vol] 0.88 mg/dL 0.70-1.20 [facility] Serum glucose measurement (m ass/volume)Ordered By: Vinny Enciso on 04-25-2025 Glucose [Mass/Vol] 127 mg/dL High 70-99 [facility] Serum or plasma calcium laith urement (mass/volume)Ordered By: Vinny Juarez on 04-25-2025 Calcium [Mass/Vol] 10.6 mg/dL 7.6-11.0 [facility] Serum or plasma urea nitroge n measurement (mass/volume)Ordered By: Vinny Enciso on 04-25-2025 Urea nitrogen [Mass/Vol] 13 mg/dL 4-19 [facility] Sodium levelOrdered By: Marquise Enciso on 04-25-2025 Sodium [Moles/Vol] 140 mmol/L 133-145 [facility] Troponin T.cardiac [Mass/vol ume] in Serum or Plasma by High sensitivity methodOrdered By: Vinny Enciso on 04-25-2025 Troponin T.cardiac High sensitivity method [Mass/Vol] 8 ng/L <22 [facility] Troponin T.cardiac High sensitivity method [Mass/Vol] 11 ng/L <22 [facility] White blood cell (WBC) count Ordered By: Vinny Enciso on 04-25-2025 WBC (Bld) [#/Vol] 7.6 10*3/uL 4.4-11.0 [facility] 03-09-2025 [facility] Office Visit (INTMWS ) RAVI COOPER ([id number]) 1975 M Date Time Provider Department 03/09/25 4:00 PM LEWIS JIMENEZ INTMWS During your visit today, we recorded the following information about you: Pulse Respiration Blood pressure Weight 76/minute 16/minute 136/80 111.1 kg Height 1.803 m Lewis Jimenez MD 03/29/2025 8:24 PM Signed This note was created using Azoniariter. Subjective Ravi Cooper is a 49 year old male. HISTORY Ravi is a 49-year-old male presenting for a routine annual checkup. He has concerns about possible sleep apnea and a persistent cough. Ravi reports that his has observed episodes of apnea during sleep, but he denies experiencing daytime somnolence. He acknowledges a history of snoring and attributes potential sleep apnea to being overweight. He has a BMI of 34 and a history of HTN, with a recent reading of 138 mmHg. He consistently sleeps on his left side due to a hiatal hernia, which causes acid reflux when sleeping on his right side or back. He manages his reflux by avoiding food after 1800 and consuming small portions if he eats later. Ravi also reports a persistent cough following a recent illness 3 weeks ago, for which he was prescribed an albuterol inhaler. He notes improvement in his symptoms and has approximately 120 doses of albuterol remaining. He denies a history of asthma. He had a parathyroidectomy, with one parathyroid gland removed. He denies any issues with bowel movements, including constipation or diarrhea. He has been for 20 years and denies multiple sexual partners or tattoos. He also denies any blood transfusions in the . He declines the hepatitis B vaccine, pneumonia vaccine, and shingles vaccine. PAST MEDICAL HISTORY Diagnosis Date Primary hyperparathyroidism (HCC) had 1 affected parathyroid which was removed Current Outpatient Medications Medication Sig albuterol HFA (PROVENTIL HFA) 90 mcg/actuation inhaler Inhale 1-2 Puffs as instructed every 4 hours as needed for wheezing/shortness of breath. No current facility-administered medications for this visit. ALLERGIES Allergen Reactions Codeine hallucinations FAMILY HISTORY Problem Relation Age of Onset Cancer Mother cervical None Father Social History Tobacco Use Smoking status: Never Smokeless tobacco: Never Substance Use Topics Alcohol use: No Drug use: No Review of Systems Objective BP 136/80 Pulse 76 Resp 16 Ht 180.3 cm (5' 11) Wt 111.1 kg (244 lb 14.9 oz) BMI 34.16 kg/m? Last 5 Encounter Wt Readings: Date: Wt: 03/09/2025 111.1 kg (244 lb 14.9 oz) 02/14/2025 111 kg (244 lb 11.4 oz) 07/05/2024 110.2 kg (242 lb 15.2 oz) 05/22/2023 110.2 kg (243 lb) 05/07/2023 111.4 kg (245 lb 9.6 oz) No waist measurement recorded Estimated body mass index is 34.16 kg/m? as calculated from the following: Height as of this encounter: 180.3 cm (5' 11). Weight as of this encounter: 111.1 kg (244 lb 14.9 oz). Last 5 Encounter BP Readings: Date: BP: 03/09/2025 136/80 02/14/2025 149/84 07/05/2024 123/75 05/22/2023 130/78 05/07/2023 130/80 Physical Exam Vitals reviewed. Constitutional: Appearance: Normal appearance. He is obese. HENT: Head: Normocephalic. Right Ear: Tympanic membrane, ear canal and external ear normal. Left Ear: Tympanic membrane, ear canal and external ear normal. Mouth/Throat: Mouth: Mucous membranes are moist. Pharynx: Oropharynx is clear. Eyes: Extraocular Movements: Extraocular movements intact. Conjunctiva/sclera: Conjunctivae normal. Neck: Thyroid: No thyromegaly. Vascular: No carotid bruit. Cardiovascular: Rate and Rhythm: Normal rate and regular rhythm. Pulses: Normal pulses. Heart sounds: Normal heart sounds. Pulmonary: Effort: Pulmonary effort is normal. Breath sounds: Normal breath sounds. Abdominal: General: Abdomen is flat. There is no distension. Palpations: Abdomen is soft. There is no mass. Musculoskeletal: Cervical back: Normal range of motion. Right lower leg: No edema. Left lower leg: No edema. Skin: General: Skin is warm and dry. Neurological: General: No focal deficit present. Mental Status: He is alert and oriented to person, place, and time. Psychiatric: Attention and Perception: Attention and perception normal. Mood and Affect: Mood and affect normal. Speech: Speech normal. Behavior: Behavior normal. Thought Content: Thought content normal. Cognition and Memory: Cognition normal. Judgment: Judgment normal. Assessment and Plan # Routine medical exam (Z00.00) - Completed physical examination; no abnormalities noted. - Discussed importance of regular check-ups and preventive care. - Patient declined hepatitis C, HIV, hepatitis B, pneumonia, and shingles vaccines. - Follow-up as needed. # Snoring (R06.83) # Witnessed (more content not included)... Normal [facility] 02-14-2025 [facility] Office Visit (INTMWS ) RAVI COOPER ([id number]) 1975 M Date Time Provider Department 02/14/25 10:20 AM JOHNNY MADDOX INTMWS During your visit today, we recorded the following information about you: Temperature Pulse Respiration Blood pressure 98.2 degrees 73/minute 16/minute 149/84 Weight 111 kg Johnny Maddox APRN.HAT AND CAP SEWER 02/14/2025 11:00 AM Addendum SUBJECTIVE Ravi Schilling Kenneth is a 49 year old male who presents with 3 weeks of symptoms that are worsening. Symptoms include: Fever (>=100.4F): No or Chills: No Cough: Yes difficult to control Shortness of breath: Yes with exertion only or Difficulty breathing: No Fatigue: Yes Muscle aches: No Headache: Yes right mxillary sinus area New loss of smell or taste: No Sore throat: No Nasal congestion: Yes or Rhinorrhea: Yes Nausea: No or Vomiting: No Diarrhea: No Cough: - Persistent cough x3 weeks. - Initially improved, but exacerbated over the weekend. - Associated with significant chest pain, described as raging bull. - Coughing episodes trigger dyspnea, particularly during physical activity at work. - Denies fever, but reports significant drainage and occasional headaches. - Sore throat noted approximately 2 weeks ago, now resolved. - Denies ear pain, fatigue, or myalgias. - No medical evaluation sought initially; managed with OTC Mucinex, which provided temporary relief. - Reports exposure to coworkers with bronchitis and influenza A. - Denies smoking history. - No history of asthma; occasional wheezing noted during running. - No recent antibiotic use. OTC meds/remedies that patient has tried: Mucinex DM. Exposures: Sick contacts? Yes influenza A and bronchitis coworkers Family or close contacts with confirmed/probable COVID-19 in last 14 days? No He reports that he has never smoked. He has never used smokeless tobacco. Constitutional: (-) fever, (-) fatigue Head: (+) headache Ears/Nose/Mouth/Throat : (-) ear pain, (-) sore throat, (+) congestion, (+) phlegm Cardiovascular: (+) chest pain Respiratory: (+) cough, (+) shortness of breath, (+) wheezing Musculoskeletal: (-) myalgia OBJECTIVE PHYSICAL EXAM: BP 149/84 Pulse 73 Temp 36.8 ?C (98.2 ?F) Resp 16 Wt 111 kg (244 lb 11.4 oz) SpO2 98% BMI 34.13 kg/m? General appearance: alert, cooperative, pleasant, in no acute distress Head: Normocephalic Eyes: conjunctiva/corneas normal Ears: R TM - clear with good landmarks, nl light reflex, L TM - clear with good landmarks, nl light reflex Nose: clear rhinorrhea, mucosa erythematous and swollen Oropharynx: moist without lesions, mild erythema to GPA, no exudate Neck: supple and small, benign anterior cervical nodes bilaterally Heart: regular rate and rhythm, without murmur Lungs: clear to auscultation, without rales or wheeze, good air exchange ASSESSMENT/PLAN (J32.9, J40) Sinobronchitis (primary encounter diagnosis) ASSESSMENT/PLAN: 1. Sinobronchitis - ICD9: 473.9, 490, ICD10: J32.9, J40 - Will begin treatment with as per antibiotic as written, see orders - Supportive care with plenty of fluids, rest, and analgesia prn. - Follow up in one week if symptoms persist or worsen. - AMOXICILLIN 875 MG-POTASSIUM CLAVULANATE 125 MG TABLET - PREDNISONE 10 MG TABLET - ALBUTEROL SULFATE HFA 90 MCG/ACTUATION AEROSOL INHALER Recommend schedule physical, last seen 2022. Johnny Maddox APRN.[employer] AND [employer] Medical Decision Making: Problems: Low: Acute, uncomplicated illness or injury Risk: Moderate: Drug management Medical Decision Making Level: 3 - Low Referring Provider: SELF [200] Allergies As of Date: 02/14/2025 Noted Allergy Reaction CODEINE 06/26/2006 Comments: hallucinations Date Reviewed: 02/14/2025 Reviewed by: Johnny Maddox APRN.H[employer] AND [employer]ER - Fully Assessed Reason for Visit: Barky Cough [1961] Primary Visit Diagnosis:Sinobronchit is [J32.9, J40] Order(s):amoxicillin-c lavulanate potassium (AUGMENTIN) 875-125 mg per tabletTake 1 tablet by mouth two times a day for 7 days. Take with foodDisp: 14 tabletRfl: 0 predniSONE (DELTASONE) 10 mg tabletTake 4 tabs daily for 3 days, then 2 tabs daily for 3 days, then 1 tab daily for 3 days with food.Disp: 21 tabletRfl: 0 albuterol HFA (PROVENTIL HFA) 90 mcg/actuation inhalerInhale 1-2 Puffs as instructed every 4 hours as needed for wheezing/shortness of breath.Disp: 1 EachRfl: 0 Prescriptions as of 02/14/2025 - amoxicillin-clavulanat e potassium (AUGMENTIN) 875-125 mg per tablet Take 1 tablet by mouth two times a day for 7 days. Take with food - predniSONE (DELTASONE) 10 mg tablet Take 4 tabs daily for 3 days, then 2 tabs daily for 3 days, then 1 tab daily for 3 days with food. - albuterol HFA (PROVENTIL HFA) 90 mcg/actuation inhaler Inhale 1-2 Puffs as instructed every 4 hours as needed for wheezing/shortness of breath. Problem List As Of Date (more content not included)... Normal [facility] [id number] 07-05-2024 [id number] HNO ID: [id number] Author: HEIDI ESPINOZA RN Service: ? Author Type: Registered Nurse Type: [id number] Filed: 07/05/2024 10:06 Note Text: The patient received a copy of Colonoscopy discharge instructions that contain information for how to contact the physician who performed the procedure and when to seek medical care. Normal [facility] Colonoscopyon 07-05-2024 Colonoscopy [facility] Gastrointestinal Endoscopy Patient Name: Ravi Cooper Procedure Date: 07/05/2024 8:41 AM Date of : 1975 Admit Type: Outpatient Age: 48 Gender: Male Note Status: Finalized Procedure: Colonoscopy Indications: Screening for colorectal malignant neoplasm Providers: Drake Noyola MD Patient Profile: This is a 48 year old male. Refer to note in patient chart for documentation of history and physical. Last Colonoscopy: none. The patient's first colonoscopy is today. Referring Physician: Lewis Jimenez (Referring MD) Medicines: Fentanyl 100 micrograms IV, Midazolam 7 mg IV, Diphenhydramine 50 mg IV Complications: No immediate complications. Estimated blood loss: None. Requesting Provider: Procedure: Pre-Anesthesia Assessment: - Prior to the procedure, a History and Physical was performed, and patient medications and allergies were reviewed. The patient's tolerance of previous anesthesia was also reviewed. The risks and benefits of the procedure and the sedation options and risks were discussed with the patient. All questions were answered, and informed consent was obtained. Prior Anticoagulants: The patient has taken no anticoagulant or antiplatelet agents. ASA Grade Assessment: II - A patient with mild systemic disease. After reviewing the risks and benefits, the patient was deemed in satisfactory condition to undergo the procedure. After I obtained informed consent, the scope was passed under direct vision. Throughout the procedure, the patient's blood pressure, pulse, and oxygen saturations were monitored continuously. The Colonoscope was introduced through the anus and advanced to the cecum, identified by appendiceal orifice and ileocecal valve. The colonoscopy was performed without difficulty. The patient tolerated the procedure well. The quality of the bowel preparation was poor. The ileocecal valve, appendiceal orifice, and rectum were photographed. Moderate Sedation: The administration of moderate sedation was initiated at 08:48 AM. Moderate (conscious) sedation was personally administered by the endoscopist. The following parameters were monitored: oxygen saturation, heart rate, blood pressure, respiratory rate, EKG, adequacy of pulmonary ventilation, and response to care. Total physician intraservice time was 15 minutes. Findings: The perianal and digital rectal examinations were normal. A few small-mouthed diverticula were found in the sigmoid colon. Non-bleeding internal hemorrhoids were found during retroflexion. The hemorrhoids were mild and small. The exam was otherwise without abnormality. Extensive amounts of semi-liquid stool was found at the splenic flexure, in the transverse colon, at the hepatic flexure, in the ascending colon, in the cecum and at the appendiceal orifice, precluding visualization. Lavage of the area was performed using a large amount of normal saline, resulting in incomplete clearance with fair visualization. The exam was otherwise without abnormality. Impression: - Preparation of the colon was poor. - Diverticulosis in the sigmoid colon. - Non-bleeding internal hemorrhoids. - The examination was otherwise normal. - Stool at the splenic flexure, in the transverse colon, at the hepatic flexure, in the ascending colon, in the cecum and at the appendiceal orifice. - The examination was otherwise normal. - No specimens collected. Recommendation: - Patient has a contact number available for emergencies. The signs and symptoms of potential delayed complications were discussed with the patient. Return to normal activities tomorrow. Written discharge instructions were provided to the patient. - Resume previous diet. - Continue present medications. - Repeat colonoscopy in 3 - 5 years because the bowel preparation was suboptimal. - Return to primary care physician PRN. NEEDS TWO DAYBOWEL PREP NEXT TIME, WELLL BEING SEEN BY PRIMARY CARE PRIOR TO SDUHA'D C-SCOPE. Procedure Code(s): --- Professional --- 98133, Colonoscopy, flexible; diagnostic, including collection of specimen(s) by brushing or washing, when performed (separate procedure) G0500, Moderate sedation services provided by the same physician or other qualified health pharmacist critical care performing a gastrointestinal endoscopic service that sedation supports, requiring the presence of an independent trained observer to assist in the monitoring of the patient's level of consciousness and physiological status; initial 15 minutes of intra-service time; patient age 5 years or older (additional time may be reported with 87473, as appropriate) Diagnosis Code(s): --- Professional --- Z12.11, Encounter for screening for malignant neoplasm of colon K64.8, Other hemorrhoids K57.30, Diverticulosis of large intestine without perforation or abscess without bleeding CPT copyright 2020 [employer] (more content not included)... Normal [facility] Colonoscopy [facility]atio non [facility] Patient Name: Ravi Cooper Procedure Date: 07/05/2024 8:41 AM Date of : 1975 Admit Type: Outpatient Age: 48 Gender: Male Note Status: Finalized Procedure: Colonoscopy Indications: Screening for colorectal malignant neoplasm Providers: Drake Noyola MD Patient Profile: This is a 48 year old male. Refer to note in patient chart for documentation of history and physical. Last Colonoscopy: none. The patient's first colonoscopy is today. Referring Physician: Lewis Jimenez (Referring MD) Medicines: Fentanyl 100 micrograms IV, Midazolam 7 mg IV, Diphenhydramine 50 mg IV Complications: No immediate complications. Estimated blood loss: None. Requesting Provider: Procedure: Pre-Anesthesia Assessment: - Prior to the procedure, a History and Physical was performed, and patient medications and allergies were reviewed. The patient's tolerance of previous anesthesia was also reviewed. The risks and benefits of the procedure and the sedation options and risks were discussed with the patient. All questions were answered, and informed consent was obtained. Prior Anticoagulants: The patient has taken no anticoagulant or antiplatelet agents. ASA Grade Assessment: II - A patient with mild systemic disease. After reviewing the risks and benefits, the patient was deemed in satisfactory condition to undergo the procedure. After I obtained informed consent, the scope was passed under direct vision. Throughout the procedure, the patient's blood pressure, pulse, and oxygen saturations were monitored continuously. The Colonoscope was introduced through the anus and advanced to the cecum, identified by appendiceal orifice and ileocecal valve. The colonoscopy was performed without difficulty. The patient tolerated the procedure well. The quality of the bowel preparation was poor. The ileocecal valve, appendiceal orifice, and rectum were photographed. Moderate Sedation: The administration of moderate sedation was initiated at 08:48 AM. Moderate (conscious) sedation was personally administered by the endoscopist. The following parameters were monitored: oxygen saturation, heart rate, blood pressure, respiratory rate, EKG, adequacy of pulmonary ventilation, and response to care. Total physician intraservice time was 15 minutes. Findings: The perianal and digital rectal examinations were normal. A few small-mouthed diverticula were found in the sigmoid colon. Non-bleeding internal hemorrhoids were found during retroflexion. The hemorrhoids were mild and small. The exam was otherwise without abnormality. Extensive amounts of semi-liquid stool was found at the splenic flexure, in the transverse colon, at the hepatic flexure, in the ascending colon, in the cecum and at the appendiceal orifice, precluding visualization. Lavage of the area was performed using a large amount of normal saline, resulting in incomplete clearance with fair visualization. The exam was otherwise without abnormality. Impression: - Preparation of the colon was poor. - Diverticulosis in the sigmoid colon. - Non-bleeding internal hemorrhoids. - The examination was otherwise normal. - Stool at the splenic flexure, in the transverse colon, at the hepatic flexure, in the ascending colon, in the cecum and at the appendiceal orifice. - The examination was otherwise normal. - No specimens collected. Recommendation: - Patient has a contact number available for emergencies. The signs and symptoms of potential delayed complications were discussed with the patient. Return to normal activities tomorrow. Written discharge instructions were provided to the patient. - Resume previous diet. - Continue present medications. (more content not included)... [facility] Radiology Study observation (narrative) [facility] HISTORY PHYSICALon HISTORY PHYSICAL HNO ID: [id number] Author: DRAKE NOYOLA MD Service: General Surgery Author Type: Physician Type: H&P Filed: 07/05/2024 08:44 Note Text: HISTORY AND PHYSICAL Ravi Cooper 1975 REFERRING PHYSICIAN: Lewis Jimenez MD CHIEF COMPLAINT: No chief complaint on file. HPI: The patient is a 48 year old male referred for endoscopy. Ravi notes no history of colon complaints. The patient notes no history of upper GI complaints. Ravi has not undergone prior endoscopy. PAST MEDICAL HISTORY No date: Primary hyperparathyroidism (HCC) Comment: had 1 affected parathyroid which was removed PAST SURGICAL HISTORY No date: ADENOIDECTOMY PRIMARY Comment: Adenoidectomy x 3 sets : MYRINGOTOMY ASPIRAND/EUSTACHIAN TUBE NFLTJ ANES Comment: Myringotomy/tubes 05/28/2011: PARATHYROIDECTOMY/EXPL ORATION PARATHYROIDS Comment: Removal of right inferior parathyroid adenoma No date: TONSILLECTOMY PRIMARY/SECONDARY Comment: Tonsillectomy Current Outpatient Medications Medication Sig pantoprazole DR (PROTONIX) 40 mg tablet Take 1 tablet by mouth once daily. (Patient not taking: No sig reported) Current Facility-Administered Medications Medication Dose Route Frequency lactated ringers iv infusion 30 mL/hr INTRAVENOUS CONTINUOUS ALLERGIES: Codeine PERSONAL HISTORY: Social History Tobacco Use Smoking status: Never Smokeless tobacco: Never Substance Use Topics Alcohol use: No Drug use: No FAMILY HISTORY: FAMILY HISTORY Problem Relation Age of Onset Cancer Mother cervical None Father REVIEW OF SYMPTOMS: negative except as noted above PHYSICAL EXAMINATION: General: The patient is 48 year old male, well nourished, well hydrated in no acute distress. The patient is oriented to time, place, and person. VITALS: Blood pressure 156/85, pulse (!) 58, temperature 36.3 ?C (97.4 ?F), temperature source Temporal, resp. rate 16, weight 110.2 kg (242 lb 15.2 oz), SpO2 98%. Body mass index is 33.88 kg/m?. HEENT: Normal cephalic, ataumatic, pupils are equally round, sclera are anicteric, mucous membranes are moist, oropharynx is clear. Neck has no masses, asymmetry or lymphadenopathy. Thyroid is unremarkable. Respiratory: Clear to auscultation and percussion. Normal respiratory excursion and pattern. Cardiac: Examination is regular rate and rhythm. Abdominal exam: Soft, nontender, with no palpable masses. No hepatosplenomegaly. No palpable hernias. Rectal exam: exam deferred Extremities: no clubbing, cyanosis or edema. No adenopathy. Other: LABORATORY VALUES: As Noted RADIOLOGIC STUDIES: As Noted Assessment IMPRESSION: screen c-scope PLAN: I plan to perform lower endoscopy. We discussed the risks and benefits of the planned endoscopy. I have informed the patient that complications can occur including failure to complete the endoscopy and perforation. The patient had the opportunity to ask questions concerning the planned endoscopy. My staff has also explained the procedure to the patient in understandable terms and has given the patient printed material concerning the procedure. The patient freely consents to surgery. Diagnoses: (Z12.11) Encounter for screening for malignant neoplasm of colon (primary encounter diagnosis) (Z12.11) Colon cancer screening Return to Clinic: The patient is instructed to follow-up with me as needed. Drake Noyola III, MD Normal [facility] Venous Duplex US, Unilateral on 05-28-2023 Venous Duplex US, Unilateral [facility] [address] [place] [address] Venous Duplex US, Unilateral 05/28/23 1058 MR#: [id number] Acct: [id number] Name: RAVI COOPER Rep #: [id number] : 1975 47 From: Jourdan Mays MD Attending Dr: GABBIE Hull Status: REG CL I Ordering Dr: Jamee Angelo Date: 05/28/23 Location: [facility] Sex: M C Admitted: Reason For Study: RLE PAIN RIGHT GSV is normal. CFV is compressible, spontaneous, phasic, competent and demonstrates normal augmentation. FV is compressible, spontaneous, phasic, competent and demonstrates normal augmentation. POP V is compressible, spontaneous, phasic, competent and demonstrates normal augmentation. T/P Trunk is compressible. PTV is compressible. RT PerV is compressible. Procedure This is a venous duplex using B-mode, color flow and spectral Doppler. Exam performed in department. A preliminary report was called and/or faxed to Jamee CARTWRIGHT @ 11:15 AM @ [phone]. VL/Venous Duplex US, Unilateral Interpretation Summary Deep veins of the right lower extremity are patent and compressible segmentally. There is no evidence of right lower extremity deep vein thrombosis. The right great saphenous vein appears patent and compressible segmentally. Ordering Physician: Jamee Angelo Referring Physician: Lewis Jimenez Performed By: Cindy Carr, TAMMIE, RVT 05/28/23 1259 Date Jourdan Mays MD CC: GABBIE Hull; Dr. Lewis Jimenez MD Date Dictated: 05/28/23 1058 Date Transcribed: 05/28/231258 Spider Assembler: Signed Normal [facility] Emergency Department Summary on 05-26-2023 Emergency Department Summary [facility] Medical Records Department [address] [place] [id number] Emergency Department Summary 05/25/23 MR#: [id number] Acct: [id number] Name: RAVI COOPER Rep #: [id number] : 1975 47 From: Rashad Lacy DO PCP: Dr. Lewis Jimenez MD Status:[facility] ER Location: ED ADDENDUM by Dr. Rashad Lacy DO on 05/25/23 at 2338 Patient has asymptomatic hypertension. He has no headache, chest pain, shortness of breath, no other acute complaints. Patient blood pressure was checked again at disposition, it was 152/89. Patient will record blood pressures once or twice a day for the next week, follow-up with PCP. 05/25/23 2338 Cosigner Signature (if applicable): cc: Dr. Lewis Jimenez MD * Signed HPI History of Present Illness Chief Complaint: Lower Extremity Injury Narrative Narrative: Patient is a 47-year-old male who is presenting to the ER with chief complaint of right knee pain. Patient states that he was walking up the steps, then he heard a loud popping noise and had pain in his right knee, lateral aspect. Patient has been having pain in his right knee for the past several months. Patient saw his PCP and has been referred to an orthopedic surgeon who he has an appointment with at the end of May. Patient was seen and evaluated in the office of the PCP, and has been told that he might have a Cooper's cyst. Patient works at [employer]. 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 Patient's had no other fall, no other injury, no other acute complaints. Patient did not take anything for pain besides his Mobic that he normally takes at nighttime for knee pain. Patient's is at bedside. Patient's can drive home. Patient having difficulty time ambulating and bearing weight on the right knee secondary to pain. No significant swelling. No signs of hemarthrosis. No other acute complaints at this time. [facility] Medical History Back pain Home Medications hydrocodone-acetaminop hen 5-325mg 5mg-325mg 1 tab PO Q4H PRN PRN Pain 2 days #10 TABLETS 05/25/23 [Rx Last Taken Unknown] Allergy/AdvReac Type Severity Reaction Status Date / Time codeine Allergy HALLUCINATI Verified 05/25/23 22:16 ONS Social History Smoking Status: Never smoker ROS ROS ED ROS Narrative REVIEW OF SYSTEMS: Unless otherwise stated in this report the patient's positive and negative responses for review of systems for constitutional, eyes, ENT, cardiovascular, respiratory, ga strointestinal, neurological, , musculoskeletal, and integument systems and related systems to the presenting problem are either stated in the history of present illness or were not pertinent or were negative for the symptoms and/or complaints related to the presenting medical problem. EXAM Physical Exam Narrative Exam Narrative: Vital signs reviewed and patient is not hypoxic. General: The patient appears well and in no apparent distress. Patient is resting comfortably on cart. Not toxic, lethargic, or listless. Skin: Warm, dry, no pallor noted. There is no rash noted. Head: Normocephalic, atraumatic Eye: Normal conjunctiva, no drainage, EOMI. PERRL. Ears, Nose, Mouth, and Throat: oral mucosa is moist. Nares patent. Cardiovascular: Regular Rate and Rhythm, no murmurs, gallops, or rubs Respiratory: Patient is in no distress, no accessory muscle use, lungs are clear to auscultation, no wheezing, rales or rhonchi Musculoskeletal: The patient has full range of motion of all extremities and joints with no difficulty besides the right knee. Patient has flexion of the right knee to approximately 45 degrees, he does have full extension. Patient has no pain with valgus stress, he does have mild to moderate pain with varus stress. I do not appreciate a anterior drawer sign or posterior drawer sign on this patient's right knee at this time. No signs of hemarthrosis. Patient does have some inferior superior edema. Patient does have mild to moderate pain with active range of motion of the right knee. Range of motion of left knee was compared to the right knee. Unable to completely assess ROM in the ER visit secondary to pain patient has no motor, no sensory deficits. No rash. Neurological: A O x4, normal speech, no focal neurological deficits. Psychiatric: Cooperative Const Vital Signs: 05/25/23 22:14 05/25/23 23:26 Temperature 98 F Temperature Source Temporal Pulse Rate 78 Respiratory Rate 16 Blood Pressure 145/112 H 152/89 H Blood Pressure Mean 123 110 Pulse Ox 98 Oxygen Delivery Method Room Air MDM MDM MDM Narrative Medical decision making narrative: Patient had a elastic knee brace o (more content not included)... Normal [facility] Knee 3 Viewson 05-26-2023 Knee 3 Views [facility] Imaging Services [address] [place] [id number] Knee 3 Views MR#: [id number] Acct: [id number] Name: RAVI COOPER Rep #: [id number] : 1975 M 47 From: Lanre Rivera DO PCP: Dr. Lewis Jimenez MD Status: REG ER Study: Knee 3 Views Date of Exam: 05/25/23 Exam# [id number] Ordering Dr: Rashad Lacy DO INDICATION: pain EXAMINATION/TECHNIQUE: X-RAY - RIGHT XR Knee 3 Views COMPARISON: FINDINGS: SOFT TISSUES: No soft tissue swelling or gas. No radiopaque foreign body. A suprapatellar effusion is noted. BONES/JOINTS: No acute fracture or subluxation.. Normal alignment. Preservation of the joint space.. No sclerotic or destructive changes observed. RAD/Knee 3 Views IMPRESSION: Mild suprapatellar effusion. Electronically Signed: Lanre Rivera DO at 23:36 EDT , CC: Dr. Rashad Lacy DO; Dr. Lewis Jimenez MD Spider Assembler: Signed [facility] XR KNEE GENERAL 4V AP BOTH/P A BOTH/LAT/MERC RIGHTon 05-07-2023 [facility] XR Knee - right 4 Viewson IMPRESSION: Findings are suggestive of mild degenerative changes in the right knee. Spider Assembler: BETTE Transcribe Date/Time: May 07 2023 11:56A Dictated by : RUT COLUNGA MD This examination was interpreted and the report reviewed and electronically signed by: RUT COLUNGA MD on May 07 2023 11:57AM [facility] DIVISION OF RADIOLOGY * * *Final Report* * * DATE OF EXAM: May 07 2023 11:32AM WOX [id number] - XR KNEE 4V AP/PA BOTH+LAT/ROBERTA RT / PROCEDURE REASON: Acute pain of right knee * * * * Physician Interpretation * * * * EXAM TITLE: XR KNEE 4V AP/PA BOTH+LAT/ROBERTA RT EXAM DATE/TIME: 05/07/2023 11:32 AM COMPARISON: None. CLINICAL INDICATION/HISTORY: Acute right knee pain. TECHNIQUE: AP/PA, lateral and sunrise views of the right knee are presented. FINDINGS: No acute fractures or subluxations are noted. Tiny marginal bony spurs are visualized. The joint spaces are well preserved. There is trace/small joint effusion. The mineralization of the bones is normal. There is no significant soft tissue swelling. DIVISION OF RADIOLOGY Provider, [facility] - 05/07/2023 * * *Final Report* * * DATE OF EXAM: May 07 2023 11:32AM WOX 5203 - XR KNEE 4V AP/PA BOTH+LAT/ROBERTA RT / PROCEDURE REASON: Acute pain of right knee * * * * Physician Interpretation * * * * EXAM TITLE: XR KNEE 4V AP/PA BOTH+LAT/ROBERTA RT EXAM DATE/TIME: 05/07/2023 11:32 AM COMPARISON: None. CLINICAL INDICATION/HISTORY: Acute right knee pain. TECHNIQUE: AP/PA, lateral and sunrise views of the right knee are presented. FINDINGS: No acute fractures or subluxations are noted. Tiny marginal bony spurs are visualized. The joint spaces are well preserved. There is trace/small joint effusion. The mineralization of the bones is normal. There is no significant soft tissue swelling. IMPRESSION IMPRESSION: Findings are suggestive of mild degenerative changes in the right knee. Spider Assembler: BETTE Transcribe Date/Time: May 07 2023 11:56A Dictated by : RUT COLUNGA MD This examination was interpreted and the report reviewed and electronically signed by: RUT COLUNGA MD on May 07 2023 11:57AM [facility] Radiology Study observation (narrative) [facility] Knee - right 4 ViewsOrder ed By: Ccf Provider on 05-07-2023 [facility] Abdomen/Pelvis without Conto n 04-04-2023 Abdomen/Pelvis without Cont [facility] Imaging Services [address] [place] [id number] Abdomen/Pelvis without Cont MR#: [id number] Acct: [id number] Name: KENNETHRAVI K Rep #: [id number] : 1975 M 47 From: Raul Hess DO PCP: Dr. Lewis Jimenez MD Status: REG ER Study: Abdomen/Pelvis without Cont Date of Exam: 03/17 08/09 Exam# [id number] Ordering Dr: Miroslava Keene STUDY: CT ABDOMEN AND PELVIS WITHOUT CONTRAST REASON FOR EXAM: Male, 47 years old. Left flank pain. RADIATION DOSAGE (If Supplied By Facility): CTDIvol = ( 19.78 ) mGy, DLP = ( 1097.20 ) mGycm TECHNIQUE: Transaxial images were obtained from the dome of the diaphragm to the symphysis pubis without oral contrast, and without intravenous contrast. Sagittal and coronal images were reconstructed. Individualized dose optimization techniques were used for this CT. COMPARISON: None. FINDINGS: The visualized lung bases are unremarkable. The visualized portions of the heart are within normal limits. Hepatic steatosis and hepatomegaly without mass. Normal gallbladder and extrahepatic biliary system. Mild splenomegaly. Normal pancreas. Normal bilateral adrenal glands. Normal right kidney. Normal left kidney. Normal ureters. Normal visualized stomach. Normal small intestine. Findings colonic diverticulosis without acute inflammatory change. The appendix is visualized and appears normal. Normal abdominal aorta. Normal inferior vena cava. Normal retroperitoneum. Normal urinary bladder. Normal prostate. No pelvic lymphadenopathy. No free air or free fluid is seen within the peritoneal cavity. Normal abdominal wall. Mild degenerative changes of the lumbar spine. No fracture or subluxation. CT/Abdomen/Pelvis without Cont IMPRESSION: 1. Enlarged fatty infiltrated liver. 2. No evidence of renal, ureteral abnormality. 3. Mild splenomegaly. 4. No acute intra-abdominal or pelvic process. Electronically Signed: Raul Hess DO at 19:24 EDT Reading Location ID and State: [address] [place] [address] Tel [phone], Service support , CC: GABBIE Keene; Dr. Lewis Jimenez MD Spider Assembler: Signed Normal [facility] Absolute lymphocyte countOrd ered By: Miroslava Keene on 04-04-2023 Lymphocytes Auto (Unsp spec) [#/Vol] 2.61 10*3/uL 0.83-4.51 [facility] Basic Metabolic Profile (BMP )on 04-04-2023 BUN/CRE 20.9 RATIO High 09-05 [facility] Comment on above: Performed By: #### L 100.0100, L500.2500 #### [facility] [place], [address] CA,Total 9.9 mg/dL Normal 8.5-10.1 [facility] Comment on above: Performed By: #### L 100.0100, L500.2500 #### [facility] [address] [place], [address] Chloride [Moles/Vol] 110 mmol/L High 98-107 [facility] Comment on above: Performed By: #### L 100.0100, L500.2500 #### [facility] [address] [place], [address] CO2 [Moles/Vol] 24.0 mmol/L Normal 21.0-32.0 [facility] Comment on above: Performed By: #### L 100.0100, L500.2500 #### [facility] [address] [place], [address] Creatinine [Mass/Vol] 0.96 mg/dL Normal 0.70-1.30 [facility] Comment on above: Result Comment: The validity of the calculated GFR GFRAA in patients over 70 years has not been determined. Clinical correlation is essential. Performed By: #### L 100.0100, L500.2500 #### [facility] [address] [place], [address] ECRCL 99.14 ml/min Normal [facility] Comment on above: Performed By: #### L 100.0100, L500.2500 #### [facility] [address] [place], [address] EST GFR - AA 107 mL/min Normal >60 [facility] Comment on above: Result Comment: Afri can Swazi GFR Calc Performed By: #### L 100.0100, L500.2500 #### [facility] [address] [place], [address] GAP 7 Normal 5-15 [facility] Comment on above: Performed By: #### L 100.0100, L500.2500 #### [facility] [address] [place], [address] GFR/1.73 sq M.predicted among non-blacks MDRD (S/P/Bld) [Vol rate/Area] 88 mL/min/{1.73_m2} Normal >60 [facility] Comment on above: Result Comment: Non- GFR Calc Performed By: #### L 100.0100, L500.2500 #### [facility] [address] [place], [address] Glucose [Mass/Vol] 95 mg/dL Normal 74-106 [facility] Comment on above: Performed By: #### L 100.0100, L500.2500 #### [facility] [address] [place], [address] Potassium [Moles/Vol] 3.8 mmol/L Normal 3.5-5.1 [facility] Comment on above: Result Comment: Slig ht Hemolysis, Result may be falsely increased. Performed By: #### L 100.0100, L500.2500 #### [facility] [address] [place], [address] Sodium [Moles/Vol] 141 mmol/L Normal 136-145 [facility] Comment on above: Performed By: #### L 100.0100, L500.2500 #### [facility] [address] [place], [address] Urea nitrogen [Mass/Vol] 20 mg/dL High 7-18 [facility] Comment on above: Performed By: #### L 100.0100, L500.2500 #### [facility] [address] [place], [address] Basophil percentageOrdered B y: Miroslava Keene on 04-04-2023 Basophils/100 WBC (Bld) 0.7 % 0-1 [facility] Chloride [Moles/Vol] 110 mmol/L 98-107 [facility] Eosinophils/100 WBC (Bld) 4.8 % 0-5 [facility] Glucose [Mass/Vol] 95 mg/dL 74-106 [facility] Neutrophils (Bld) [#/Vol] 4.3 10*3/uL 2.0-7.7 [facility] Neutrophils/100 WBC (Bld) 51.9 % 47-70 [facility] Potassium [Moles/Vol] 3.8 mmol/L 3.5-5.1 [facility] Comment on above: Slight Hemolysis, Re sult may be falsely increased. Sodium [Moles/Vol] 141 mmol/L 136-145 [facility] WBC (Bld) [#/Vol] 8.4 10*3/uL 4.4-11.0 [facility] Basophil percentage 0 SEEN /hpf 0-5 [facility] Bilirubin Test strip Ql (U)O rdered By: Miroslava Keene on 04-04-2023 Bilirubin Ql (U) Negative Negative [facility] Blood erythrocytes count (nu mber/volume)Ordered By: Miroslava Keene on 04-04-2023 RBC (Bld) [#/Vol] 4.97 10*6/uL 4.6-6.2 [facility] Blood hemoglobin measurement (mass/volume)Ordered By: Miroslava Keene on 04-04-2023 Hemoglobin (Bld) [Mass/Vol] 15.3 g/dL 13.0-16.5 [facility] Blood lymphocytes/100 leukoc ytesOrdered By: Miroslava Keene on 04-04-2023 Lymphocytes/100 WBC (Bld) 31.3 % 19-41 [facility] Blood monocytes/100 leukocyt esOrdered By: Miroslava Keene on 04-04-2023 Monocytes/100 WBC (Bld) 10.9 % 0-10 [facility] Blood platelet mean volumeOr dered By: Miroslava Keene on 04-04-2023 Platelet mean volume (Bld) [Entitic vol] 9.8 fL 6.2-12.0 [facility] CBC W/Diff, Automatedon 03-17 Absolute Lymph 2.61 X10 3/uL Normal 0.83-4.51 [facility] Comment on above: Performed By: #### L 100.0100, L500.2500 #### [facility] [address] [place], [address] Absolute Neut 4.3 X10 3/uL Normal 2.0-7.7 [facility] Comment on above: Performed By: #### L 100.0100, L500.2500 #### [facility] [address] [place], [address] Basophils/100 WBC (Bld) 0.7 % Normal 0-1 [facility] Comment on above: Performed By: #### L 100.0100, L500.2500 #### [facility] [address] [place], [address] Eosinophils/100 WBC (Bld) 4.8 % Normal 0-5 [facility] Comment on above: Performed By: #### L 100.0100, L500.2500 #### [facility] [address] [place], [address] Erythrocyte distribution width (RBC) [Ratio] 12.2 % Normal 11.6-14.6 [facility] Comment on above: Performed By: #### L 100.0100, L500.2500 #### [facility] [address] [place], [address] Hematocrit (Bld) [Volume fraction] 44.7 % Normal 40-54 [facility] Comment on above: Performed By: #### L 100.0100, L500.2500 #### [facility] [address] [place], [address] Hemoglobin (Bld) [Mass/Vol] 15.3 g/dL Normal 13.0-16.5 [facility] Comment on above: Performed By: #### L 100.0100, L500.2500 #### [facility] [address] [place], [address] IG% 0.400 Normal 0.0-0.9 [facility] Comment on above: Result Comment: IG% - Immature Granulocytes (promyelocytes, myelocytes and metamyelocytes) > 1% indicates that a LEFT SHIFT is Present. Performed By: #### L 100.0100, L500.2500 #### [facility] [address] [place], [address] Lymphocytes/100 WBC (Bld) 31.3 % Normal 19-41 [facility] Comment on above: Performed By: #### L 100.0100, L500.2500 #### [facility] [address] [place], [address] MCH (RBC) [Entitic mass] 30.8 pg Normal 27.0-32.0 [facility] Comment on above: Performed By: #### L 100.0100, L500.2500 #### [facility] [address] [place], [address] MCHC (RBC) [Mass/Vol] 34.2 g/dL Normal 32-36 [facility] Comment on above: Performed By: #### L 100.0100, L500.2500 #### [facility] [address] [place], [address] MCV (RBC) [Entitic vol] 89.9 fL Normal 80-94 [facility] Comment on above: Performed By: #### L 100.0100, L500.2500 #### [facility] [address] [place], [address] Monocytes/100 WBC (Bld) 10.9 % High 0-10 [facility] Comment on above: Performed By: #### L 100.0100, L500.2500 #### [facility] [address] [place], [address] Neutrophils/100 WBC (Bld) 51.9 % Normal 47-70 [facility] Comment on above: Performed By: #### L 100.0100, L500.2500 #### [facility] [address] [place], [address] Nucleated RBC (Bld) [#/Vol] 0 10*3/uL Normal 0-5 [facility] Comment on above: Performed By: #### L 100.0100, L500.2500 #### [facility] [address] [place], [address] Platelet mean volume (Bld) [Entitic vol] 9.8 fL Normal 6.2-12.0 [facility] Comment on above: Performed By: #### L 100.0100, L500.2500 #### [facility] [address] [place], [address] Platelets (Bld) [#/Vol] 257 10*3/uL Normal 150-450 [facility] Comment on above: Performed By: #### L 100.0100, L500.2500 #### [facility] [address] [place], [address] RBC (Bld) [#/Vol] 4.97 10*6/uL Normal 4.6-6.2 [facility] Comment on above: Performed By: #### L 100.0100, L500.2500 #### [facility] [address] [place], [address] RDW SD 39.7 fl Normal 35.1-43.9 [facility] Comment on above: Performed By: #### L 100.0100, L500.2500 #### [facility] [address] [place], [address] WBC (Bld) [#/Vol] 8.4 10*3/uL Normal 4.4-11.0 [facility] Comment on above: Performed By: #### L 100.0100, L500.2500 #### [facility] [address] [place], [address] Determination of erythrocyte mean corpuscular volume (MCV)Ordered By: Miroslava Keene on 04-04-2023 MCV (RBC) [Entitic vol] 89.9 fL 80-94 [facility] Emergency Department Summary on 04-04-2023 Emergency Department Summary [facility] Medical Records Department [address] [place] [address] Emergency Department Summary 04/04/23 MR#: [id number] Acct: [id number] Name: RAVI COOPER Rep #: [id number] : 1975 47 From: Miroslava CARTWRIGHT PCP: Dr. Lewis Jimenez MD Status:DEP ER Location: ED HPI History of Present Illness Chief Complaint: Complaint Narrative Narrative: Patient presenting today due to increased urinary frequency and flank pain that he has had for the past 3 days. He states that the flank pain has been bilateral up until today where it is now located on the left side. He states that the pain seems to go away when he drinks a lot of water and urinates. He denies any dysuria or hematuria. He denies any fever, chills, penile discharge, history of kidney stones, abdominal pain, injury to his back, nausea, and vomiting. [facility] Medical History Back pain Home Medications NK 06/04/18 [History Last Taken Unknown] Allergy/AdvReac Type Severity Reaction Status Date / Time codeine Allergy HALLUCINATI Verified 04/04/23 17:05 ONS Social History Smoking Status: Never smoker ROS ROS ED Constitutional Constitutional ED: Denies chills, fever(s) or sweats Cardiovascular Cardiovascular: Denies chest pain Respiratory/Chest Respiratory/Chest: Denies cough or dyspnea Gastrointestinal Gastrointestinal: Denies abdominal pain, nausea or vomiting Genitourinary Genitourinary ED: Reports urinary frequency; Denies dysuria or hematuria Musculoskeletal Musculoskeletal: Reports back pain; Denies arthralgias or myalgias Integumentary Denies rash Neurologic Neurologic: Denies weakness Allergic/Immunologic Allergic/Immunologic ED: Denies urticaria EXAM Physical Exam Const Vital Signs: 04/04/23 17:02 Temperature 98.4 F Temperature Source Temporal Pulse Rate 75 Respiratory Rate 16 Blood Pressure 148/78 H Blood Pressure Mean 101 Pulse Ox 98 Oxygen Delivery Method Room Air Positive well nourished, well developed and no apparent distress General Appearance ED: well developed HEENT Reports normocephalic and head/scalp atraumatic Mouth ED: Yes moist mucous membranes normal Eyes PERRL and EOMs intact bilaterally Neck full ROM and supple Chest Wall inspection of chest normal Resp normal respiratory effort and clear to auscultation bilaterally Cardio regular rate and regular rhythm GI soft to palpation, non-tender, non-distended and no masses Back/Spine no CVA tenderness, normal ROM and normal to inspection General Back: Negative for CVA tenderness Thoracic Spine / Upper Back: Negative for thoracic spinal tenderness Lumbar Spine / Lower Back: Negative for lumbar spinal tenderness Extremity normal to inspection and full ROM Neuro oriented x3, CN's II-XII intact bilaterally, moves all extremities, no focal motor deficits and no sensory deficits noted Sensorium / Orientation: awake and alert Psych mental status grossly normal and thought process normal Skin no rashes or lesions noted and no wounds Physical Exam Const Vital Signs: 04/04/23 17:02 Temperature 98.4 F Temperature Source Temporal Pulse Rate 75 Respiratory Rate 16 Blood Pressure 148/78 H Blood Pressure Mean 101 Pulse Ox 98 Oxygen Delivery Method Room Air MDM MDM MDM Narrative Medical decision making narrative: Patient presenting today due to increased urinary frequency and bilateral flank pain that he has had for the past 3 days. Today, the pain is now localized to the left flank only. The pain seems to go away when he drinks a lot of water. He does not have a history of UTIs or kidney stones. No CVA tenderness bilaterally or midline back tenderness. He is well-appearing and in no acute distress. He is afebrile. UA will be obtained to rule out UTI, will be obtained to rule out leukocytosis, anemia, electrolyte abnormality, and to assess kidney function. CT of the abdomen and pelvis without contrast will be obtained to rule out kidney stone and other abdominal etiology. Labs and urine are unremarkable and CT is unremarkable aside from fatty liver. I think patient's pain is likely musculoskeletal. He has been given supportive care measures and is to take anti- inflammatories for pain as needed. Does have a history of back spasms. He has been given return instructions and will be discharged home in stable condition. He is to follow-up with his PCP. He is comfortable with plan. Lab Data Attestation: I reviewed the patient's lab results. Labs: Laboratory Results - last 24 hr 04/04/23 04/04/23 04/04/23 18:10 18:46 18:46 WBC 8.4 RBC 4.97 Hgb (more content not included)... Normal [facility] Hematocrit Auto (Bld) [Volum e fraction]Ordered By: Miroslava Keene on 04-04-2023 Hematocrit (Bld) [Volume fraction] 44.7 % 40-54 [facility] Ketones Test strip Ql (U)Ord ered By: Miroslava Keene on 04-04-2023 Ketones Ql (U) Negative Negative [facility] - Chemistry and C hemistry - challengeOrdered By: Miroslava Keene on 04-04-2023 CO2 [Moles/Vol] 24.0 mmol/L 21.0-32.0 [facility] Urea nitrogen/Creatinine [Mass ratio] 20.9 mg/mg 10-20 [facility] - Hematology and Cell countsOrdered By: Miroslava Keene on 04-04-2023 Erythrocyte distribution width (RBC) [Entitic vol] 39.7 fL 35.1-43.9 [facility] Erythrocyte distribution width (RBC) [Ratio] 12.2 % 11.6-14.6 [facility] Immature granulocytes/100 WBC (Bld) 0.400 % 0.0-0.9 [facility] Comment on above: IG% - Immature Granu locytes (promyelocytes, myelocytes and metamyelocytes) > 1% indicates that a LEFT SHIFT is Present. MCH (RBC) [Entitic mass] 30.8 pg 27.0-32.0 [facility] Nucleated RBC/100 WBC (Bld) [Ratio] 0 % 0-5 [facility] MCHC Auto (RBC) [Mass/Vol]Or dered By: Miroslava Keene on 04-04-2023 MCHC (RBC) [Mass/Vol] 34.2 g/dL 32-36 [facility] Mucus LM Ql (Urine sed)Order ed By: Miroslava Keene on 04-04-2023 Mucus Ql (Urine sed) 0 SEEN /hpf [facility] Nitrite Test strip Ql (U)Ord ered By: Miroslava Keene on 04-04-2023 Nitrite Ql (U) Negative Negative [facility] No Panel InformationOrdered By: Miroslvaa Keene on 04-04-2023 Estimated Creatinine Clearance Calc 99.14 ml/min [facility] Estimated GFR (MDRD) Amer 107 mL/min >60 [facility] Comment on above: GFR Calc Estimated GFR (MDRD) Non-Af Amer 88 mL/min >60 [facility] Comment on above: Non- GFR Calc Platelets bldOrdered By: Lopez Keene on 04-04-2023 Platelets (Bld) [#/Vol] 257 10*3/uL 150-450 [facility] Protein Test strip Ql (U)Ord ered By: Miroslava Keene on 04-04-2023 Protein Ql (U) 15 mg/dl Negative [facility] Serum or plasma calcium laith urement (mass/volume)Ordered By: Miroslava Keene on 04-04-2023 Calcium [Mass/Vol] 9.9 mg/dL 8.5-10.1 [facility] Serum or plasma creatinine m easurement (mass/volume)Ordered By: Miroslava Keene on 04-04-2023 Creatinine [Mass/Vol] 0.96 mg/dL 0.70-1.30 [facility] Comment on above: The validity of the calculated GFR & GFRAA in patients over 70 years has not been determined. Clinical correlation is essential. Serum or plasma urea nitroge n measurement (mass/volume)Ordered By: Miroslava Keene on 04-04-2023 Urea nitrogen [Mass/Vol] 20 mg/dL 7-18 [facility] Squamous epithelial cells de tection in urine sediment by light microscopyOrdered By: Miroslava Keene on 04-04-2023 Epithelial cells.squamous LM Ql (Urine sed) 0 SEEN /hpf 0-5 [facility] Thin prep Papanicolaou smear with manual screeningOrdered By: Miroslava Keene on 04-04-2023 Thin prep Papanicolaou smear with manual screening 7 5-15 [facility] Urinalysis, Completeon 04-04 BACTERIA 0 SEEN Normal None Seen [facility] Comment on above: Order Comment: CLEAN CATCH Performed By: #### L 400.0001 #### [facility] [address] [place], [address] EPI,SQUAMOUS 0 SEEN Normal 0-5 [facility] Comment on above: Order Comment: CLEAN CATCH Performed By: #### L 400.0001 #### [facility] [address] [place], [address] Mucus Ql (Urine sed) 0 SEEN Normal [facility] Comment on above: Order Comment: CLEAN CATCH Performed By: #### L 400.0001 #### [facility] [address] [place], [address] RBC 0 SEEN Normal 0-5 [facility] Comment on above: Order Comment: CLEAN CATCH Performed By: #### L 400.0001 #### [facility] [address] [place], [address] WBC 0 SEEN Normal 0-5 [facility] Comment on above: Order Comment: CLEAN CATCH Performed By: #### L 400.0001 #### [facility] [address] [place], [address] Urine blood detectionOrdered By: Miroslava Keene on 04-04-2023 RBC Ql (U) Negative Negative [facility] RBC Ql (U) 0 SEEN /hpf 0-5 [facility] Urine clarityOrdered By: Lopez Keene on 04-04-2023 Clarity (U) Clear Clear [facility] Urine color determinationOrd ered By: Miroslava Keene on 04-04-2023 Color (U) Yellow Yellow [facility] Urine glucose detectionOrder ed By: Miroslava Keene on 04-04-2023 Glucose Ql (U) Normal mg/dl Normal [facility] Urine leukocyte esterase det ection by dipstickOrdered By: Miroslava Keene on 04-04-2023 Leukocyte esterase Test strip Ql (U) Negative Negative [facility] Urine pHOrdered By: Jemima Keene on 04-04-2023 pH (U) 5.0 [pH] 5.0 - 8.0 [facility] Urine sediment bacteria coun t by microscopy (number/high power field)Ordered By: Miroslava Keene on 04-04-2023 Bacteria LM.HPF (Urine sed) [#/Area] 0 /[HPF] None Seen [facility] Urine specific gravity measu rementOrdered By: Miroslava Keene on 04-04-2023 Specific gravity (U) [Rel density] 1.025 1.002-1.030 [facility] Urobilinogen Auto test strip Ql (U)Ordered By: Miroslava Keene on 04-04-2023 Urobilinogen Ql (U) Normal mg/dl Normal [facility] Provider Note - ED v3on Provider Note - ED v3 Provider Note: Chart Review: HISTORY OF PRESENTING ILLNESS RAVI is a 47 year old Male and was seen by me at 21-Aug-2022 10:15 for a chief complaint of ear foreign body (Patient to ED reference debris in ear. Patient at work and had radio communication ear piece break off in right ear, piece removed at clinic but was told that his still has some debris in ear and drum in very irritated.)(1). Triage Information: Most recent Vital Sign Value Date Temp (F): 97.9 08-21-2022 10:09 Temp (C): 36.6 08-21-2022 10:09 Heart Rate (beats/min): 62 08-21-2022 10:09 Respirations (breaths/min): 15 08-21-2022 10:09 SpO2 (%): 98 08-21-2022 10:09 BP Systolic (mm Hg): 153 08-21-2022 10:09 BP Diastolic (mm Hg): 97 08-21-2022 10:09 PAST MEDICAL HISTORY ALLERGIES/INTOLERANCES : Allergy Allergen: codeine Type: Drug Reaction: Other HEALTH HISTORY: No documented data. OUTPATIENT MEDICATIONS: Home Medications Review Status for Reconciliation: N/A Med Status: N/A No documented data. SIGNIFICANT EVENTS: No documented data. MDM MDM/ED COURSE: PMH: Reviewed PSH: Reviewed Social History: Reviewed. Allergies reviewed. HPI: This is a 47 year old male who presents to the ED today with complaints of foreign body in ear. Patient states that he was at work and the tip of his ear plug came off and was stuck in his ear. He was seen at [facility]. The ear plug was removed but the staff felt that there was still some debris in his ear and so they sent him to ER for further evaluation. Patient has 0 complaints on ED arrival. States that the ear plug was in there for approximately 2 hours. Reports history of multiple ear infections as a child with several surgeries on his right ear. PHYSICAL EXAM: GENERAL: Vitals noted, no distress. Alert and oriented x 3. Non-toxic. HEAD: Normocephalic, atraumatic. Pupils equally round and reactive to light. EOMI. TMs clear bilaterally, scar tissue noted, no foreign body. CARDIAC: Regular rate, rhythm. RESPIRATORY: No respiratory distress. NEURO: No focal neurologic deficits, acting appropriately. ED COURSE: This patient was seen and examined by myself and Dr. Gardner. There is no foreign body in the patient's ears. Patient does have history of multiple chronic ear infections as a child, has had several surgeon the right. There is scar tissue noted but again no foreign bodies. He is referred back to [facility] for continued follow-up care. Discharged home in stable condition with computer instructions given. DIAGNOSTIC IMPRESSION: #1 concern for ear foreign body DISPOSITION Diagnosis/Annotation: ED Dx Name:Ear foreign body Code:T16.9XXA Disposition: discharged Type: home CONSULT Attestation: This is a shared visit. I have reviewed the LIPs encounter note, approve the LIPs documentation and provide the following additional information from my personal encounter. Shared Visit Documentation: See comments/additional findings below I have personally performed a substantial portion of the encounter. Comments/Additional Findings: I was involved in the care of the patient while supervising the mid-level provider and I have personally performed a substantive portion of the encounter. I independently evaluated the patient, obtained a history from the patient, and performed a physical exam. I was directly involved in the care of the patient while they were here in the emergency department. Patient was seen and evaluated in the ED due to concern for possible retained foreign object in his right ear. I have evaluated both patient's ears and there is no evidence of foreign body. Patient was subsequent discharged home in stable satisfactory condition.CRITICAL CARE TIME Is this a critically ill patient: no Electronic Signatures: Augustus Gardner (DO) (Signed 21-Aug-2022 14:52) Authored: Attestation, Chart Review Co-Signer: HPI, PMH, MDM/ED Course, Clinical Impression, Attestation, Chart Review, Scores Farheen Boston (MEAT APPRENTICE-EDUCATION AND OUTREACH COORDINATOR) (Signed 21-Aug-2022 10:39) Authored: HPI, PMH, MDM/ED Course, Clinical Impression, Attestation, Chart Review, Scores Last Updated: 21-Aug-2022 14:52 by Augustus Gardner (DO) References: 1. Data Referenced From Triage - ED 21-Aug-2022 10:09 Normal [facility] XR Chest PA and Lateralon Radiology Study observation (narrative) [facility] IMPRESSION: No acute radiographic abnormality. Spider Assembler: PSCB Transcribe Date/Time: Oct 10 2021 2:39P Dictated by : DARVIN BERKOWITZ MD This examination was interpreted and the report reviewed and electronically signed by: DARVIN BERKOWITZ MD on Oct 10 2021 2:39PM [facility] DIVISION OF RADIOLOGY * * *Final Report* * * DATE OF EXAM: Oct 10 2021 2:21PM STX 5291 - XR CHEST 2V FRONTAL/LAT / PROCEDURE REASON: Sensorineural hearing loss (SNHL) of left ear with unrestricted hearing of right * * * * Physician Interpretation * * * * EXAMINATION: CHEST RADIOGRAPH (2 VIEW FRONTAL & LATERAL) CLINICAL HISTORY: Sensorineural hearing loss (SNHL) of left ear with unrestricted hearing of right ear MQ: XC2_6 EXAM DATE/TIME: 10/10/2021 2:21 PM COMPARISON: No relevant prior studies available. RESULT: Lines, tubes, and devices: None. Lungs and pleura: No consolidation. No lung mass. No pleural effusion. No pneumothorax. Cardiomediastinal silhouette: Normal cardiomediastinal silhouette. Bones and soft tissues: Unremarkable. DIVISION OF RADIOLOGY Provider[facility] * * *Final Report* * * DATE OF EXAM: Oct 10 2021 2:21PM STX 5291 - XR CHEST 2V FRONTAL/LAT / PROCEDURE REASON: Sensorineural hearing loss (SNHL) of left ear with unrestricted hearing of right * * * * Physician Interpretation * * * * EXAMINATION: CHEST RADIOGRAPH (2 VIEW FRONTAL & LATERAL) CLINICAL HISTORY: Sensorineural hearing loss (SNHL) of left ear with unrestricted hearing of right ear MQ: XC2_6 EXAM DATE/TIME: 10/10/2021 2:21 PM COMPARISON: No relevant prior studies available. RESULT: Lines, tubes, and devices: None. Lungs and pleura: No consolidation. No lung mass. No pleural effusion. No pneumothorax. Cardiomediastinal silhouette: Normal cardiomediastinal silhouette. Bones and soft tissues: Unremarkable. IMPRESSION IMPRESSION: No acute radiographic abnormality. Spider Assembler: BETTE Transcribe Date/Time: Oct 10 2021 2:39P Dictated by : DARVIN BERKOWITZ MD This examination was interpreted and the report reviewed and electronically signed by: DARVIN BERKOWITZ MD on Oct 10 2021 2:39PM EST [facility] XR Chest PA and LateralOrder ed By: [facility] Provider on 10-10-2021 [facility] Vital Signs Date Time Vital Sign Value Performing Clinician Facility 04-25-2025 14:19-0400 Body temperature 98 [degF] Dr. Lewis Jimenez MD Work Phone: [facility] 04-25-2025 14:19-0400 Diastolic blood pressure 76 mm[Hg] Dr. Lewis Jimenez MD Work Phone: [facility] 04-25-2025 14:19-0400 Heart rate 58 /min Dr. Lewis Jimenez MD Work Phone: [facility] 04-25-2025 14:19-0400 Respiratory rate 14 /min Dr. Lewis Jimenez MD Work Phone: [facility] 04-25-2025 14:19-0400 SaO2% (BldA) [Mass fraction] 100 % Dr. Lewis Jimenez MD Work Phone: [facility] 04-25-2025 14:19-0400 Systolic blood pressure 128 mm[Hg] Dr. Lewis Jimenez MD Work Phone: [facility] 04-25-2025 10:16-0400 Body height 180.[address] Lewis Jimenez MD Work Phone: [facility] 03-09-2025 16:29-0400 Body height 180.3 cm Lewis Jimenez MD Work Phone: [facility] 03-09-2025 16:29-0400 Body mass index (BMI) [Ratio] 34.16 kg/m2 Lewis Jimenez MD Work Phone: [facility] 03-09-2025 16:29-0400 Body weight 111.1 kg Lewis Jimenez MD Work Phone: [facility] 03-09-2025 16:29-0400 Diastolic blood pressure 80 mm[Hg] Lewis Jimenez MD Work Phone: [facility] 03-09-2025 16:29-0400 Heart rate 76 /min Lewis Jimenez MD Work Phone: [facility] 03-09-2025 16:29-0400 Respiratory rate 16 /min Lewis Jimenez MD Work Phone: [facility] 03-09-2025 16:29-0400 Systolic blood pressure 136 mm[Hg] Lewis Jimenez MD Work Phone: [facility] 02-14-2025 10:24-0400 Diastolic blood pressure 84 mm[Hg] Johnny Maddox MEAT APPRENTICE.HAT AND CAP SEWER Work Phone: [facility] 02-14-2025 10:24-0400 Heart rate 73 /min Johnny Maddox MEAT APPRENTICE.HAT AND CAP SEWER Work Phone: [facility] 02-14-2025 10:24-0400 Systolic blood pressure 149 mm[Hg] Johnny Maddox MEAT APPRENTICE.HAT AND CAP SEWER Work Phone: [facility] 02-14-2025 10:22-0400 Body mass index (BMI) [Ratio] 34.13 kg/m2 Johnny Maddox MEAT APPRENTICE.HAT AND CAP SEWER Work Phone: [facility] 02-14-2025 10:22-0400 Body temperature 98.2 [degF] Johnny Maddox MEAT APPRENTICE.HAT AND CAP SEWER Work Phone: [facility] 02-14-2025 10:22-0400 Body weight 111 kg Johnny Maddox MEAT APPRENTICE.HAT AND CAP SEWER Work Phone: [facility] 02-14-2025 10:22-0400 Respiratory rate 16 /min Johnny Maddox MEAT APPRENTICE.HAT AND CAP SEWER Work Phone: [facility] 02-14-2025 10:22-0400 SaO2% (BldA) [Mass fraction] 98 % Johnny Maddox MEAT APPRENTICE.HAT AND CAP SEWER Work Phone: [facility] 07-05-2024 09:50-0400 Diastolic blood pressure 75 mm[Hg] Drake Noyola MD Work Phone: [facility] 07-05-2024 09:50-0400 Heart rate 56 /min Drake Noyola MD Work Phone: [facility] 07-05-2024 09:50-0400 Respiratory rate 18 /min Drake Noyola MD Work Phone: [facility] 07-05-2024 09:50-0400 SaO2% (BldA) [Mass fraction] 92 % Drake Noyola MD Work Phone: [facility] 07-05-2024 09:50-0400 Systolic blood pressure 123 mm[Hg] Drake Noyola MD Work Phone: [facility] 07-05-2024 08:11-0400 Body mass index (BMI) [Ratio] 33.88 kg/m2 Drake Noyola MD Work Phone: [facility] 07-05-2024 08:11-0400 Body temperature 97.39 [degF] Drake Noyola MD Work Phone: [facility] 07-05-2024 08:11-0400 Body weight 110.2 kg Drake Noyola MD Work Phone: [facility] 05-25-2023 23:26-0400 Body mass index (BMI) [Ratio] 35.3 kg/m2 [facility] 05-25-2023 23:26-0400 Body weight 114.98 kg [facility] 05-25-2023 23:26-0400 Diastolic blood pressure 89 mm[Hg] [facility] 05-25-2023 23:26-0400 Systolic blood pressure 152 mm[Hg] [facility] 05-25-2023 22:14-0400 Body height 180.34 cm [facility] 05-25-2023 22:14-0400 Body temperature 98 [degF] [facility] 05-25-2023 22:14-0400 Heart rate 78 /min [facility] 05-25-2023 22:14-0400 Respiratory rate 16 /min [facility] 05-25-2023 22:14-0400 SaO2% (BldA) [Mass fraction] 98 % [facility] 05-07-2023 10:48-0400 Body temperature 97.3 [degF] Jaems Israel MEAT APPRENTICE.EDUCATION AND OUTREACH COORDINATOR Work Phone: [facility] 05-07-2023 10:48-0400 Body weight 111.4 kg James Israel MEAT APPRENTICE.EDUCATION AND OUTREACH COORDINATOR Work Phone: [facility] 05-07-2023 10:48-0400 Diastolic blood pressure 80 mm[Hg] James Israel MEAT APPRENTICE.EDUCATION AND OUTREACH COORDINATOR Work Phone: [facility] 05-07-2023 10:48-0400 Heart rate 70 /min James Israel MEAT APPRENTICE.EDUCATION AND OUTREACH COORDINATOR Work Phone: [facility] 05-07-2023 10:48-0400 Respiratory rate 18 /min James Israel MEAT APPRENTICE.EDUCATION AND OUTREACH COORDINATOR Work Phone: [facility] 05-07-2023 10:48-0400 SaO2% (BldA) [Mass fraction] 98 % James Israel MEAT APPRENTICE.EDUCATION AND OUTREACH COORDINATOR Work Phone: [facility] 05-07-2023 10:48-0400 Systolic blood pressure 130 mm[Hg] James Israel MEAT APPRENTICE.EDUCATION AND OUTREACH COORDINATOR Work Phone: [facility] 04-04-2023 17:02-0400 Body mass index (BMI) [Ratio] 33.8 kg/m2 [facility] 04-04-2023 17:02-0400 Body temperature 98.4 [degF] [facility] 04-04-2023 17:02-0400 Body weight 110 kg [facility] 04-04-2023 17:02-0400 Diastolic blood pressure 78 mm[Hg] [facility] 04-04-2023 17:02-0400 Heart rate 75 /min [facility] 04-04-2023 17:02-0400 Respiratory rate 16 /min [facility] 04-04-2023 17:02-0400 SaO2% (BldA) [Mass fraction] 98 % [facility] 04-04-2023 17:02-0400 Systolic blood pressure 148 mm[Hg] [facility] 08-21-2022 12:50-0400 Diastolic blood pressure 87 mm[Hg] No Pcp Required [facility] 08-21-2022 12:50-0400 Heart rate 61 /min No Pcp Required [facility] 08-21-2022 12:50-0400 Respiratory rate 16 /min No Pcp Required [facility] 08-21-2022 12:50-0400 SaO2% (BldA) [Mass fraction] 99 % No Pcp Required [facility] 08-21-2022 12:50-0400 Systolic blood pressure 146 mm[Hg] No Pcp Required [facility] 08-21-2022 12:09-0400 Body height 180.3 cm No Pcp Required [facility] 08-21-2022 12:09-0400 Body temperature 97.88 [degF] No Pcp Required [facility] 08-21-2022 12:09-0400 Body weight 106.7 kg No Pcp Required [facility] Encounters Encounter Date Encounter Type Care Provider Facility Start: 04-25-2025 End: 04-25-2025 Emergency department patient visit Dr. Lewis Jimenez MD Work Phone: -Emergency Department Work Phone: Start: 03-09-2025 End: 03-09-2025 Patient encounter status Lewis Jimenez MD Work Phone: [facility] Start: 03-09-2025 End: 03-09-2025 Periodic preventive med est patient 40-64yrs Lewis Jimenez MD Work Phone: [facility] [place] Comment on above: Routine medical exam (Primary Dx); Snoring; Witnessed episode of apnea; Class 1 obesity due to excess calories with body mass index (BMI) of 34.0 to 34.9 in adult, unspecified whether serious comorbidity present; S/P subtotal parathyroidectomy; Hiatal hernia; Gastroesophageal reflux disease without esophagitis; History of primary hyperparathyroidism; Elevated glucose; Screening, lipid; Screening for depression; Encounter for screening examination for other mental health and behavioral disorders Start: 03-09-2025 End: 03-09-2025 ambulatory LEWIS JIMENEZ Facility:[facility] Start: 03-09-2025 Encounter for genera l adult medical examination without abnormal findings LEWIS JIMENEZ [facility] Start: 02-14-2025 End: 02-14-2025 ambulatory JOHNNY MADDOX Facility:[facility] Start: 02-14-2025 End: 02-14-2025 Office outpatient visit 15 minutes Johnny Maddox MEAT APPRENTICE.HAT AND CAP SEWER Work Phone: [facility] [place] Comment on above: Sinobronchitis (Prim luana Dx) Start: 07-05-2024 End: 07-05-2024 ambulatory DRAKE NOYOLA Facility:[facility] Start: 07-05-2024 End: 07-05-2024 Subsequent hospital visit by physician Drake Noyola MD Work Phone: Ambulatory Surgery Comment on above: Colon cancer screeni ng [Z12.11] Start: 03-10-2024 End: 03-10-2024 Patient encounter procedure Gómez Hoyt MD Work Phone: Otolaryngology Comment on above: Bilateral hearing lo ss, unspecified hearing loss type (Primary Dx) Start: 02-26-2024 Telephone encounter Lewis rodriguez MD Work Phone: [facility] [place] Start: 02-23-2024 Admission to [facility] surgery center Lewis Jimenez MD Work Phone: Ambulatory Surgery Comment on above: colorectal cancer sc reening Start: 02-23-2024 ambulatory Lewis guzman MD Work Phone: Ambulatory Surgery Start: 05-28-2023 ambulatory Lewis Jimenez Facilit y:[facility] Start: 05-28-2023 Non-patient / Non-visit Dr. Dinora Jimenez Work Phone: [facility] Start: 05-28-2023 End: 05-28-[address] Lewis Jimenez Work Phone: [facility] Work Phone: Start: 05-28-2023 End: 05-28-[address] Lewis Jimenez Work Phone: [facility] Work Phone: Start: 05-26-2023 End: 05-26-2023 Emergency department patient visit Lewis Jimenez Facility:[facility] Start: 05-25-2023 End: 05-25-2023 Emergency department patient visit [facility] Work Phone: Start: 05-25-2023 ambulatory Cathie Kee RN NURSE O N CALL Comment on above: Knee Injury Start: 05-07-2023 End: 05-07-2023 Subsequent hospital visit by physician Xr [facility] Work Phone: Radiology Comment on above: Acute pain of right knee [M25.561] Start: 05-07-2023 End: 05-07-2023 Patient encounter procedure James Wood APRN.CNP Work Phone: [facility] Comment on above: Acute pain of right knee (Primary Dx) Start: 04-04-2023 End: 04-04-2023 Emergency department patient visit Chinyere Leon Facility:[facility] Start: 04-04-2023 End: 04-04-2023 Emergency department patient visit [facility] Work Phone: Start: 08-21-2022 End: 08-21-2022 Emergency department patient visit Farheen Boston [facility] Emergency 14 Start: 04-10-2022 End: 04-10-2022 Patient encounter procedure Gómez Hoyt MD Work Phone: Otolaryngology Comment on above: Sensorineural hearin g loss (SNHL) of left ear with unrestricted hearing of right ear (Primary Dx); Cough; Laryngitis; GERD without esophagitis; Vertigo Start: 10-10-2021 End: 10-10-2021 Subsequent hospital visit by physician Xr [facility] Work Phone: Radiology Comment on above: Sensorineural hearin g loss (SNHL) of left ear with unrestricted hearing of right ear [H90.42] Procedures Date Procedure Procedure Detail Performing Clinician Start: 04-25-2025 X-ray of chest, PA a nd lateral views Dr. Lewis Jimenez MD Work Phone: Start: 04-25-2025 D-dimer assay, quantitative Dr. Lewis Jimenez MD Work Phone: Comment on above: NORMAL D-Dimer level (<0.50) indicates no DVT or PE. Start: 03-09-2025 Adult depression scr eening assessment Lewis Jimenez MD Work Phone: Start: 07-05-2024 Colonoscopy flx dx w /collj spec when pfrmd Lewis Jimenez MD Work Phone: Start: 07-05-2024 Colonoscopy Drake maynard MD Work Phone: Start: 05-25-2023 Radiologic examinati on of knee Start: 05-07-2023 Radiologic exam knee complete 4/more views James Wood APRN.CNP Work Phone: Start: 04-04-2023 CT of abdomen and pe lvis without contrast Start: 10-10-2021 Radiologic exam ches t 2 views Gómez Hoyt MD Work Phone: Start: 09-04-2017 Adult depression scr eening assessment Gómez Hoyt MD Work Phone: Start: 11-22-2013 Lipid 1996 panel - S candis or Plasma Lewis Jimenez MD Work Phone: Plan of Treatment Date Care Activity Detail Author Start: 06-15-2028 Urine microalbumin profile [facility] Start: 03-09-2026 Anxiety Screening Anxiety Screening [facility] Start: 03-09-2026 Covid-19 Vaccine ( season) Covid-19 Vaccine ( season) [facility] Comment on above: Postponed from 07/18/2024 (Declined at t his time) Start: 03-09-2026 Depression Screening Depression Screening [facility] Start: 03-09-2026 Hepatitis B Vaccine (1 of 3 - 19+ 3-dose series) Hepatitis B Vaccine (1 of 3 - 19+ 3-dose series) [facility] Comment on above: Postponed from 1992 (Declined at t his time) Start: 03-09-2026 Pneumococcal Vaccine: 50+ (1 of 1 - PCV) Pneumococcal Vaccine: 50+ (1 of 1 - PCV) [facility] Comment on above: Postponed from 2023 (Declined at t his time) Start: 03-09-2026 Shingrix Vaccine (1 of 2) Shingrix Vaccine (1 of 2) [facility] Comment on above: Postponed from 2023 (Declined at t his time) Start: 07-18-2025 Influenza vaccination Influenza Vaccine (Season Ended) [facility] Start: 07-05-2025 Screening for malignant neoplasm of colon [facility] Start: 04-25-2025 [facility] Start: 04-25-2025 [facility] Start: 03-29-2025 End: 06-29-2025 25-hydroxyvitamin D3 [Mass/volume] in Serum or Plasma VITAMIN D 25 HYDROXY Lab Routine History of primary hyperparathyroidism S/P subtotal parathyroidectomy Expected: 03/29/2025 (Approximate), Expires: 06/29/2025 [facility] Comment on above: Expected: 03/29/2025 (Approximate), Expi res: 06/29/2025 Start: 03-29-2025 End: 06-29-2025 CBC panel - Blood by Automated count COMPLETE BLOOD COUNT Lab Routine Routine medical exam Expected: 03/29/2025 (Approximate), Expires: 06/29/2025 [facility] Comment on above: Expected: 03/29/2025 (Approximate), Expi res: 06/29/2025 Start: 03-29-2025 End: 06-29-2025 Comprehensive metabolic 2000 panel - Serum or Plasma COMPREHENSIVE METABOLIC PANEL Lab Routine Routine medical exam Elevated glucose Expected: 03/29/2025 (Approximate), Expires: 06/29/2025 [facility] Comment on above: Expected: 03/29/2025 (Approximate), Expi res: 06/29/2025 Start: 03-29-2025 End: 06-29-2025 Hemoglobin A1c in Blood HEMOGLOBIN A1C Lab Routine Routine medical exam Elevated glucose Expected: 03/29/2025 (Approximate), Expires: 06/29/2025 [facility] Comment on above: Expected: 03/29/2025 (Approximate), Expi res: 06/29/2025 Start: 03-29-2025 End: 06-29-2025 Lipid 1996 panel - Serum or Plasma LIPID PANEL, FASTING Lab Routine Routine medical exam Screening, lipid Expected: 03/29/2025 (Approximate), Expires: 06/29/2025 [facility] Comment on above: Expected: 03/29/2025 (Approximate), Expi res: 06/29/2025 Start: 03-09-2025 End: 03-09-2025 Patient encounter procedure 03/09/2025 4:00 PM EDT Office Visit [facility] [place] [address] [place] [id number] Lewis Jimenez MD [address] [place], [place] [id number] Annual exam [facility] [place] Comment on above: Annual exam Start: 07-18-2024 Covid-19 Vaccine () Covid-19 Vaccine () [facility] Start: 07-18-2024 Covid-19 Vaccine (1 - 2024-25 season) Covid-19 Vaccine ( season) [facility] Start: 07-18-2024 Influenza vaccination [facility] Start: 07-05-2024 End: 07-05-2024 Patient encounter procedure 07/05/2024 10:00 AM EDT Appointment Ambulatory Surgery [address] [place] [address] Colon cancer screening [Z12.11] Ambulatory Surgery Comment on above: Colon cancer screening [Z12.11] Start: 02-23-2024 End: 02-22-2025 Screening colonoscopy COLONOSCOPY SCREENING Endoscopy Routine Colon cancer screening Expected: 02/23/2024, Expires: 02/22/2025 [facility] Work Phone: Comment on above: Expected: 02/23/2024, Expires: Start: 11-17-2023 Behavioral Health Screening Behavioral Health Screening [facility] Start: 07-18-2023 Covid-19 Vaccine ( season) Covid-19 Vaccine ( season) [facility] Start: 07-18-2023 Influenza vaccination INFLUENZA (#1) [facility] Start: 2023 Pneumococcal Vaccine: 50+ (1 of 1 - PCV) Pneumococcal Vaccine: 50+ (1 of 1 - PCV) [facility] Start: 2023 Shingrix Vaccine (1 of 2) Shingrix Vaccine (1 of 2) [facility] Start: 11-17-2022 DEPRESSION ASSESSMENT DEPRESSION ASSESSMENT [facility] Start: 11-22-2018 Lipid panel Lipid Screening [facility] Start: 11-22-2018 LIPID SCREEN LIPID SCREEN [facility] Start: 09-04-2018 Adult depression screening assessment DEPRESSION SCREENING [facility] Start: 2018 COLOGUARD (FIT-DNA) COLOGUARD (FIT-DNA) [facility] Start: 2018 Colonoscopy COLONOSCOPY [facility] Start: 2018 COLORECTAL CANCER SCREENING COLORECTAL CANCER SCREENING [facility] Start: [address] COLONOGRAPHY [facility] Start: 2018 DIABETES SCREEN DIABETES SCREEN [facility] Start: 2018 Diabetes Screening Diabetes Screening [facility] Start: 2018 FECAL OCCULT BLOOD FECAL OCCULT BLOOD [facility] Start: 2018 Screening for malignant neoplasm of colon [facility] Start: 2018 SIGMOIDOSCOPY SIGMOIDOSCOPY [facility] Start: 1992 Hepatitis B Vaccine (1 of 3 - 19+ 3-dose series) Hepatitis B Vaccine (1 of 3 - 19+ 3-dose series) [facility] Start: 1991 Anxiety Screening Anxiety Screening [facility] Start: 1991 Depression Screening Depression Screening [facility] Start: 1991 HEPATITIS C SCREENING HEPATITIS C SCREENING [facility] Start: 1991 Hepatitis C screening Hepatitis C Screening [facility] Start: 1991 HIV SCREENING HIV SCREENING [facility] Start: 1991 HIV screening HIV Screening [facility] Start: 1978 COVID-19 VACCINE (#1) COVID-19 VACCINE (#1) [facility] Start: 01-13-1974 COVID-19 VACCINE (#1) COVID-19 VACCINE (#1) [facility] Start: 1973 HEPATITIS B (1 of 3 - 3-dose series) HEPATITIS B (1 of 3 - 3-dose series) [facility] End: 03-09-2026 HOME SLEEP APNEA TEST (HSAT) HOME SLEEP APNEA TEST (HSAT) Procedures Routine Snoring Witnessed episode of apnea Class 1 obesity due to excess calories with body mass index (BMI) of 34.0 to 34.9 in adult, unspecified whether serious comorbidity present 1 Occurrences starting 03/09/2025 until 03/09/2026 [facility] Work Phone: Comment on above: 1 Occurrences starting 03/09/2025 until 03/09/2026 Patient Education [facility] Work Phone: Patient referral [facility] Immunizations Immunization Date Immunization Notes Care Provider [facility] 09-06-2023 influenza virus vaccine, unspecified formulation Drake Noyola MD Work Phone: [facility] 08-18-2022 influenza virus vaccine, unspecified formulation Lewis Jimenez MD Work Phone: [facility] 06-15-2018 tetanus toxoid, redu no diphtheria toxoid, and acellular pertussis vaccine, adsorbed Gómez Hoyt MD Work Phone: [facility] 08-28-2013 influenza virus vaccine, unspecified formulation Gómez Hoyt MD Work Phone: [facility] 10-14-2007 influenza virus vaccine, unspecified formulation Gómez Hoyt MD Work Phone: [facility] Work Phone: 06-26-2006 diphtheria and tetan us toxoids, adsorbed for pediatric use Gómez Hoyt MD Work Phone: [facility] Work Phone: Payers Date Payer Category Payer Self-pay [id number] 2019 Private Health Insurance [facility] CHOICE PLUS [id number] 2019-Present [phone] [address] [address] [place] [address] O [id number] 2019 Private Health Insurance [id number] 2010 Unknown [id number] 1975 Unknown [id number] Unknown INDUSTRIAL\INDUSTRIAL Unknown [id number] Unknown [id number] Unknown [id number] Unknown [id number] Unknown [id number] Social History Date Type Detail Facility Start: 08-23-2011 End: 04-25-2025 Tobacco smoking status NHIS Never smoked tobacco [facility] Start: 04-10-2022 End: 03-09-2025 Alcohol intake Current non-drinker of alcohol (finding) [facility] Start: 04-06-2020 End: 06-08-2020 History SDOH Alcohol Frequency 1 [facility] Start: 06-08-2020 History SDOH Alcohol Std Drinks 98 [facility] Start: 04-06-2020 End: 04-25-2020 History SDOH Social Connections Phone 5 [facility] Start: 04-06-2020 End: 04-25-2020 History SDOH Social Connections Get Together 2 [facility] Start: 04-06-2020 History SDOH Social Connections Living 3 [facility] Start: 04-06-2020 Education 21 [facility] Start: 1975 Sex Assigned At Not on file [facility] Start: 09-10-2021 End: 04-10-2022 Exposure to SARS-CoV-2 (event) Not sure [facility] Start: 05-25-2023 Tobacco smoking consumption unknown [facility] Start: 08-23-2011 Tobacco use and exposure Smokeless tobacco non-user [facility] Start: 1975 Sex Assigned At Male [facility] Start: 05-22-2023 End: 03-09-2025 History of Social function [facility] Start: 05-22-2023 End: 03-09-2025 Social connection and isolation panel [facility] How often do you att end restorationism or caodaism services? Patient refused [facility] Do you belong to any clubs or organizations such as restorationism groups, unions, fraternal or athletic groups, or school groups? No [facility] Are you now , , , , never or living with a partner? [facility] How often to you hav e a drink containing alcohol? Never [facility] How hard is it for y ou to pay for the very basics like food, housing, medical care, and heating Somewhat hard [facility] Do you feel stress - tense, restless, nervous, or anxious, or unable to sleep at night because your mind is troubled all the time - these days [OSQ] Only a little [facility] (I/We) worried kristopher er (my/our) food would run out before (I/we) got money to buy more. Never true [facility] Functional Status Date Assessment Result Facility 03-09-2025 Total score [AUDIT-C] 0 03/09/20 2:50 PM EDT User, Yashira [facility] 03-09-2025 Within the last year , have you been humiliated or emotionally abused in other ways by your partner or ex-partner? No 03/09/2025 2:50 PM EDT User, Njt No [facility] 03-09-2025 Within the last year , have you been afraid of your partner or ex-partner? No 03/09/2025 2:50 PM EDT User, Njt No [facility] 03-09-2025 Within the last year , have you been raped or forced to have any kind of sexual activity by your partner or ex-partner? No 03/09/2025 2:50 PM EDT User, Njt No [facility] 03-09-2025 Within the last year , have you been kicked, hit, slapped, or otherwise physically hurt by your partner or ex-partner? No 03/09/2025 2:50 PM EDT User, Njt No [facility] 03-09-2025 How often to you hav e a drink containing alcohol? Never 03/09/2025 2:50 PM EDT User, Joelhart Never [facility] 03-09-2025 Functional status Patient does n ot drink 03/09/2025 2:50 PM EDT User, [email or web address] Patient does not drink [facility] 03-09-2025 How often do you hav e 6 or more drinks on 1 occasion? Never 03/09/2025 2:50 PM EDT User, Joelhart Never [facility] 01-27-2014 Are you deaf, or do you have serious difficulty hearing No 01/27/2014 4:30 PM EDT Jovani Renteria LPN No [facility] 01-27-2014 Are you blind, or do you have serious difficulty seeing, even when wearing glasses No 01/27/2014 4:30 PM EDT Jovani Renteria LPN No [facility] 01-27-2014 Do you have serious difficulty walking or climbing stairs No 01/27/2014 4:30 PM EDT Jovani Renteria LPN No [facility] 01-27-2014 Do you have difficul ty dressing or bathing No 01/27/2014 4:30 PM EDT Jovani Renteria LPN No [facility] 01-27-2014 Because of a physica l, mental, or emotional condition, do you have difficulty doing errands alone such as visiting a physician's office or shopping No 01/27/2014 4:30 PM EDT Jovani Renteria LPN No [facility] Mental Status Date Assessment Result Facility 04-25-2025 Cognitive function Voice/Name [facility] Work Phone: 01-27-2014 Because of a physica l, mental, or emotional condition, do you have serious difficulty concentrating, remembering, or making decisions No 01/27/2014 4:30 PM EDT Jovani Renteria LPN No [facility] Clinical Notes 10-10-2021 to 04-25-2025 Lewis Jimenez MD - 03/09/2025 5:00 PM Johnny Thomas APRN.[employer] AND [employer]ER - 02/14/2025 10:40 AM EDTDisbernie Rust - [place] - Heidi Espinoza RN - 07/05/2024 10:06 AM EDT Note Date & Type Note Facility 04-25-2025 Radiology Diagnostic study note [facility] Imaging Services [address] [place] [id number] Chest PA and Lateral MR#: [id number] Acct: [id number] Name: RAVI COOPER Rep #: [id number] : 1975 M 49 From: Pet er Peer DO PCP: Dr. Lewis Jimenez MD Status: RE G ER Study:Chest PA and Lateral Date of Exam: 04/25/25 Exam# [id number] Ordering Dr: Vinny Richey DO PROCEDURE: Chest PA and lateral 04/25/2025 REASON FOR EXAM: CHEST PAIN TECHNIQUE: Frontal and lateral views of the chest. COMPARISON: June 04, 2018 chest radiograph FINDINGS: Hardware: EKG lead wires Heart: Normal size Mediastinum: Unremarkable Lungs: Clear Bones: No aggressive lesions RAD/Chest PA and Lateral IMPRESSION: No acute process detected. [facility] CC: Dr. Vinny Mccann-Larry DO; Dr. Lewis Jimenez MD ~ Spider Assembler: Signed [facility] 03-09-2025 Note HNO ID: [id number] Author: LEWIS JIMENEZ MD Service: ? Author Type: Physician Type: Progress Notes Filed: 03/29/2025 20:24 Note Text: This note was created using [email or web address]. Subjective Ravi Cooper is a 49 year old male. HISTORY Ravi is a 49-year-old male presenting for a routine annual checkup. He has concerns about possible sleep apnea and a persistent cough. Ravi reports that his has observed episodes of apnea during sleep, but he denies experiencing daytime somnolence. He acknowledges a history of snoring and attributes potential sleep apnea to being overweight. He has a BMI of 34 and a history of HTN, with a recent reading of 138 mmHg. He consistently sleeps on his left side due to a hiatal hernia, which causes acid reflux when sleeping on his right side or back. He manages his reflux by avoiding food after 1800 and consuming small portions if he eats later. Ravi also reports a persistent cough following a recent illness 3 weeks ago, for which he was prescribed an albuterol inhaler. He notes improvement in his symptoms and has approximately 120 doses of albuterol remaining. He denies a history of asthma. He had a parathyroidectomy, with one parathyroid gland removed. He denies any issues with bowel movements, including constipation or diarrhea. He has been for 20 years and denies multiple sexual partners or tattoos. He also denies any blood transfusions in the 1980s. He declines the hepatitis B vaccine, pneumonia vaccine, and shingles vaccine. PAST MEDICAL HISTORY Diagnosis Date Primary hyperparathyroidism (HCC) had 1 affected parathyroid which was removed Current Outpatient Medications Medication Sig albuterol HFA (PROVENTIL HFA) 90 mcg/actuation inhaler Inhale 1-2 Puffs as instructed every 4 hours as needed for wheezing/shortness of breath. No current facility-administered medications for this visit. ALLERGIES Allergen Reactions Codeine hallucinations FAMILY HISTORY Problem Relation Age of Onset Cancer Mother cervical None Father Social History Tobacco Use Smoking status: Never Smokeless tobacco: Never Substance Use Topics Alcohol use: No Drug use: No Review of Systems Objective BP 136/80 Pulse 76 Resp 16 Ht 180.3 cm (5' 11) Wt 111.1 kg (244 lb 14.9 oz) BMI 34.16 kg/m? Last 5 Encounter Wt Readings: Date: Wt: 03/09/2025 111.1 kg (244 lb 14.9 oz) 02/14/2025 111 kg (244 lb 11.4 oz) 07/05/2024 110.2 kg (242 lb 15.2 oz) 05/22/2023 110.2 kg (243 lb) 05/07/2023 111.4 kg (245 lb 9.6 oz) No waist measurement recorded Estimated body mass index is 34.16 kg/m? as calculated from the following: Height as of this encounter: 180.3 cm (' 11). Weight as of this encounter: 111.1 kg (244 lb 14.9 oz). Last 5 Encounter BP Readings: Date: BP: 03/09/2025 136/80 02/14/2025 149/84 07/05/2024 123/75 05/22/2023 130/78 05/07/2023 130/80 Physical Exam Vitals reviewed. Constitutional: Appearance: Normal appearance. He is obese. HENT: Head: Normocephalic. Right Ear: Tympanic membrane, ear canal and external ear normal. Left Ear: Tympanic membrane, ear canal and external ear normal. Mouth/Throat: Mouth: Mucous membranes are moist. Pharynx: Oropharynx is clear. Eyes: Extraocular Movements: Extraocular movements intact. Conjunctiva/sclera: Conjunctivae normal. Neck: Thyroid: No thyromegaly. Vascular: No carotid bruit. Cardiovascular: Rate and Rhythm: Normal rate and regular rhythm. Pulses: Normal pulses. Heart sounds: Normal heart sounds. Pulmonary: Effort: Pulmonary effort is normal. Breath sounds: Normal breath sounds. Abdominal: General: Abdomen is flat. There is no distension. Palpations: Abdomen is soft. There is no mass. Musculoskeletal: Cervical back: Normal range of motion. Right lower leg: No edema. Left lower leg: No edema. Skin: General: Skin is warm and dry. Neurological: General: No focal deficit present. Mental Status: He is alert and oriented to person, place, and time. Psychiatric: Attention and Perception: Attention and perception normal. Mood and Affect: Mood and affect normal. Speech: Speech normal. Behavior: Behavior normal. Thought Content: Thought content normal. Cognition and Memory: Cognition normal. Judgment: Judgment normal. Assessment and Plan # Routine medical exam (Z00.00) - Completed physical examination; no abnormalities noted. - Discussed importance of regular check-ups and preventive care. - Patient declined hepatitis C, HIV, hepatitis B, pneumonia, and shingles vaccines. - Follow-up as needed. # Snoring (R06.83) # Witnessed episode of apnea (R06.81) - Meets criteria for obstructive sleep apnea evaluation: snoring, witnessed apnea episodes, age over 50, male gender, and elevated blood pressure. - Ordered home sleep study; patient educated on procedure and agreed to complete it. # Class 1 obesity due to e (more content not included)... [facility] 03-09-2025 History of Present illness Narrative This note was created using [employer]. Subjective Ravi Cooper is a 49 year old male. HISTORY Ravi is a 49-year-old male presenting for a routine annual checkup. He has concerns about possible sleep apnea and a persistent cough. Ravi reports that his has observed episodes of apnea during sleep, but he denies experiencing daytime somnolence. He acknowledges a history of snoring and attributes potential sleep apnea to being overweight. He has a BMI of 34 and a history of HTN, with a recent reading of 138 mmHg. He consistently sleeps on his left side due to a hiatal hernia, which causes acid reflux when sleeping on his right side or back. He manages his reflux by avoiding food after 1800 and consuming small portions if he eats later. Ravi also reports a persistent cough following a recent illness 3 weeks ago, for which he was prescribed an albuterol inhaler. He notes improvement in his symptoms and has approximately 120 doses of albuterol remaining. He denies a history of asthma. He had a parathyroidectomy, with one parathyroid gland removed. He denies any issues with bowel movements, including constipation or diarrhea. He has been for 20 years and denies multiple sexual partners or tattoos. He also denies any blood transfusions in the . He declines the hepatitis B vaccine, pneumonia vaccine, and shingles vaccine. PAST MEDICAL HISTORY Diagnosis Date Primary hyperparathyroidism (HCC) had 1 affected parathyroid which was removed Current Outpatient Medications Medication Sig albuterol HFA (PROVENTIL HFA) 90 mcg/actuation inhaler Inhale 1-2 Puffs as instructed every 4 hours as needed for wheezing/shortness of breath. No current facility-administered medications for this visit. ALLERGIES Allergen Reactions Codeine hallucinations FAMILY HISTORY Problem Relation Age of Onset Cancer Mother cervical None Father Social History Tobacco Use Smoking status: Never Smokeless tobacco: Never Substance Use Topics Alcohol use: No Drug use: No Review of Systems Objective BP 136/80 Pulse 76 Resp 16 Ht 180.3 cm (5' 11) Wt 111.1 kg (244 lb 14.9 oz) BMI 34.16 kg/m Last 5 Encounter Wt Readings: Date: Wt: 03/09/2025 111.1 kg (244 lb 14.9 oz) 02/14/2025 111 kg (244 lb 11.4 oz) 07/05/2024 110.2 kg (242 lb 15.2 oz) 05/22/2023 110.2 kg (243 lb) 05/07/2023 111.4 kg (245 lb 9.6 oz) No waist measurement recorded Estimated body mass index is 34.16 kg/m as calculated from the following: Height as of this encounter: 180.3 cm (5' 11). Weight as of this encounter: 111.1 kg (244 lb 14.9 oz). Last 5 Encounter BP Readings: Date: BP: 03/09/2025 136/80 02/14/2025 149/84 07/05/2024 123/75 05/22/2023 130/78 05/07/2023 130/80 Physical Exam Vitals reviewed. Constitutional: Appearance: Normal appearance. He is obese. HENT: Head: Normocephalic. Right Ear: Tympanic membrane, ear canal and external ear normal. Left Ear: Tympanic membrane, ear canal and external ear normal. Mouth/Throat: Mouth: Mucous membranes are moist. Pharynx: Oropharynx is clear. Eyes: Extraocular Movements: Extraocular movements intact. Conjunctiva/sclera: Conjunctivae normal. Neck: Thyroid: No thyromegaly. Vascular: No carotid bruit. Cardiovascular: Rate and Rhythm: Normal rate and regular rhythm. Pulses: Normal pulses. Heart sounds: Normal heart sounds. Pulmonary: Effort: Pulmonary effort is normal. Breath sounds: Normal breath sounds. Abdominal: General: Abdomen is flat. There is no distension. Palpations: Abdomen is soft. There is no mass. Musculoskeletal: Cervical back: Normal range of motion. Right lower leg: No edema. Left lower leg: No edema. Skin: General: Skin is warm and dry. Neurological: General: No focal deficit present. Mental Status: He is alert and oriented to person, place, and time. Psychiatric: Attention and Perception: Attention and perception normal. Mood and Affect: Mood and affect normal. Speech: Speech normal. Behavior: Behavior normal. Thought Content: Thought content normal. Cognition and Memory: Cognition normal. Judgment: Judgment normal. Assessment and Plan # Routine medical exam (Z00.00) - Completed physical examination; no abnormalities noted. - Discussed importance of regular check-ups and preventive care. - Patient declined hepatitis C, HIV, hepatitis B, pneumonia, and shingles vaccines. - Follow-up as needed. # Snoring (R06.83) # Witnessed episode of apnea (R06.81) - Meets criteria for obstructive sleep apnea evaluation: snoring, witnessed apnea episodes, age over 50, male gender, and elevated blood pressure. - Ordered home sleep study; patient educated on procedure and agreed to complete it. # Class 1 obesity due to excess calories with body mass index (BMI) of 34.0 to 34.9 in adult, unspecified whether serious comorbidity present (E66.811) - BMI under 35. - Discussed potential impact on sleep apnea. - Advised on weight management strategies. # S/P subtotal parathyroidectomy (Z98.890) # History of primary hyperparathyroidism (Z86.39) - Status post subtotal parathyroidectomy; no current issues reported. - Ordered vitamin D level to ensure adequate levels post-surgery. # Hiatal hernia (K44.9) # Gastroesophageal reflux disease without esophagitis (K21.9) - Hiatal hernia with occasional GERD symptoms; patient manages by sleeping on the left side and avoiding late meals. - Continue current management strategies. # Elevated glucose (R73.09) - Recent non-fasting glucose level of 104 mg/dL. - Ordered HbA1c to assess average blood glucose levels over the past 3 months. # Screening, lipid (Z13.220) - Ordered fasting lipid panel to assess cholesterol levels. - Patient instructed to fast for 8-10 hours before the test. # Screening for depression (Z13.31) # Encounter for screening examination for other mental health and behavioral disorders (Z13.39) - No signs of depression or anxiety observed. - Patient denies any symptoms of depression or anxiety. documented in this encounter [facility] 02-14-2025 Note HNO ID: [id number] Author: JOHNNY MADDOX APRN.[employer] AND [employer] Service: ? Author Type: Nurse Specialist Type: Progress Notes Filed: 02/14/2025 11:00 Note Text: SUBJECTIVE Ravi Cooper is a 49 year old male who presents with 3 weeks of symptoms that are worsening. Symptoms include: Fever (>=100.4F): No or Chills: No Cough: Yes difficult to control Shortness of breath: Yes with exertion only or Difficulty breathing: No Fatigue: Yes Muscle aches: No Headache: Yes right mxillary sinus area New loss of smell or taste: No Sore throat: No Nasal congestion: Yes or Rhinorrhea: Yes Nausea: No or Vomiting: No Diarrhea: No Cough: - Persistent cough x3 weeks. - Initially improved, but exacerbated over the weekend. - Associated with significant chest pain, described as raging bull. - Coughing episodes trigger dyspnea, particularly during physical activity at work. - Denies fever, but reports significant drainage and occasional headaches. - Sore throat noted approximately 2 weeks ago, now resolved. - Denies ear pain, fatigue, or myalgias. - No medical evaluation sought initially; managed with OTC Mucinex, which provided temporary relief. - Reports exposure to coworkers with bronchitis and influenza A. - Denies smoking history. - No history of asthma; occasional wheezing noted during running. - No recent antibiotic use. OTC meds/remedies that patient has tried: Mucinex DM. Exposures: Sick contacts? Yes influenza A and bronchitis coworkers Family or close contacts with confirmed/probable COVID-19 in last 14 days? No He reports that he has never smoked. He has never used smokeless tobacco. Constitutional: (-) fever, (-) fatigue Head: (+) headache Ears/Nose/Mouth/Throat: (-) ear pain, (-) sore throat, (+) congestion, (+) phlegm Cardiovascular: (+) chest pain Respiratory: (+) cough, (+) shortness of breath, (+) wheezing Musculoskeletal: (-) myalgia OBJECTIVE PHYSICAL EXAM: BP 149/84 Pulse 73 Temp 36.8 ?C (98.2 ?F) Resp 16 Wt 111 kg (244 lb 11.4 oz) SpO2 98% BMI 34.13 kg/m? General appearance: alert, cooperative, pleasant, in no acute distress Head: Normocephalic Eyes: conjunctiva/corneas normal Ears: R TM - clear with good landmarks, nl light reflex, L TM - clear with good landmarks, nl light reflex Nose: clear rhinorrhea, mucosa erythematous and swollen Oropharynx: moist without lesions, mild erythema to GPA, no exudate Neck: supple and small, benign anterior cervical nodes bilaterally Heart: regular rate and rhythm, without murmur Lungs: clear to auscultation, without rales or wheeze, good air exchange ASSESSMENT/PLAN (J32.9, J40) Sinobronchitis (primary encounter diagnosis) ASSESSMENT/PLAN: 1. Sinobronchitis - ICD9: 473.9, 490, ICD10: J32.9, J40 - Will begin treatment with as per antibiotic as written, see orders - Supportive care with plenty of fluids, rest, and analgesia prn. - Follow up in one week if symptoms persist or worsen. - AMOXICILLIN 875 MG-POTASSIUM CLAVULANATE 125 MG TABLET - PREDNISONE 10 MG TABLET - ALBUTEROL SULFATE HFA 90 MCG/ACTUATION AEROSOL INHALER Recommend schedule physical, last seen 2022. Johnny Maddox, MEAT APPRENTICE.H[employer] AND [employer]ER Medical Decision Making: Problems: Low: Acute, uncomplicated illness or injury Risk: Moderate: Drug management Medical Decision Making Level: 3 - Low [facility] 02-14-2025 History of Present illness Narrative SUBJECTIVE Ravi Cooper is a 49 year old male who presents with 3 weeks of symptoms that are worsening. Symptoms include: Fever (>=100.4F): No or Chills: No Cough: Yes difficult to control Shortness of breath: Yes with exertion only or Difficulty breathing: No Fatigue: Yes Muscle aches: No Headache: Yes right mxillary sinus area New loss of smell or taste: No Sore throat: No Nasal congestion: Yes or Rhinorrhea: Yes Nausea: No or Vomiting: No Diarrhea: No Cough: - Persistent cough x3 weeks. - Initially improved, but exacerbated over the weekend. - Associated with significant chest pain, described as raging bull. - Coughing episodes trigger dyspnea, particularly during physical activity at work. - Denies fever, but reports significant drainage and occasional headaches. - Sore throat noted approximately 2 weeks ago, now resolved. - Denies ear pain, fatigue, or myalgias. - No medical evaluation sought initially; managed with OTC Mucinex, which provided temporary relief. - Reports exposure to coworkers with bronchitis and influenza A. - Denies smoking history. - No history of asthma; occasional wheezing noted during running. - No recent antibiotic use. OTC meds/remedies that patient has tried: Mucinex DM. Exposures: Sick contacts? Yes influenza A and bronchitis coworkers Family or close contacts with confirmed/probable COVID-19 in last 14 days? No He reports that he has never smoked. He has never used smokeless tobacco. Constitutional: (-) fever, (-) fatigue Head: (+) headache Ears/Nose/Mouth/Throat: (-) ear pain, (-) sore throat, (+) congestion, (+) phlegm Cardiovascular: (+) chest pain Respiratory: (+) cough, (+) shortness of breath, (+) wheezing Musculoskeletal: (-) myalgia OBJECTIVE PHYSICAL EXAM: BP 149/84 Pulse 73 Temp 36.8 C (98.2 F) Resp 16 Wt 111 kg (244 lb 11.4 oz) SpO2 98% BMI 34.13 kg/m General appearance: alert, cooperative, pleasant, in no acute distress Head: Normocephalic Eyes: conjunctiva/corneas normal Ears: R TM - clear with good landmarks, nl light reflex, L TM - clear with good landmarks, nl light reflex Nose: clear rhinorrhea, mucosa erythematous and swollen Oropharynx: moist without lesions, mild erythema to GPA, no exudate Neck: supple and small, benign anterior cervical nodes bilaterally Heart: regular rate and rhythm, without murmur Lungs: clear to auscultation, without rales or wheeze, good air exchange ASSESSMENT/PLAN (J32.9, J40) Sinobronchitis (primary encounter diagnosis) ASSESSMENT/PLAN: 1. Sinobronchitis - ICD9: 473.9, 490, ICD10: J32.9, J40 - Will begin treatment with as per antibiotic as written, see orders - Supportive care with plenty of fluids, rest, and analgesia prn. - Follow up in one week if symptoms persist or worsen. - AMOXICILLIN 875 MG-POTASSIUM CLAVULANATE 125 MG TABLET - PREDNISONE 10 MG TABLET - ALBUTEROL SULFATE HFA 90 MCG/ACTUATION AEROSOL INHALER Recommend schedule physical, last seen 2022. Johnny Maddox APRN.CNS Medical Decision Making: Problems: Low: Acute, uncomplicated illness or injury Risk: Moderate: Drug management Medical Decision Making Level: 3 - Low documented in this encounter [facility] 07-05-2024 Note Formatting of this n ote might be different from the original. The patient received a copy of Colonoscopy discharge instructions that contain information for how to contact the physician who performed the procedure and when to seek medical care. [facility] 07-05-2024 Miscellaneous Notes The patient received a copy of Colonoscopy discharge instructions that contain information for how to contact the physician who performed the procedure and when to seek medical care. documented in this encounter [facility] 07-05-2024 Note HNO ID: [id number] Author: HEIDI ESPINOZA RN Service: ? Author Type: Registered Nurse Type: Nursing Progress Note Filed: 07/05/2024 10:04 Note Text: Abdomen soft non-distended. Will continue to monitor. [facility] 07-05-2024 Nurse Note Abdomen soft non-distended. Will continue to monitor. [facility] 07-05-2024 Nurse Note Abdomen soft non-distended. Will continue to monitor. documented in this encounter [facility] 07-05-2024 History and physical note HISTORY AND PHYSICAL Ravi Cooper 1975 REFERRING PHYSICIAN: Lewis Jimenez MD CHIEF COMPLAINT: No chief complaint on file. HPI: The patient is a 48 year old male referred for endoscopy. Ravi notes no history of colon complaints. The patient notes no history of upper GI complaints. Ravi has not undergone prior endoscopy. PAST MEDICAL HISTORY No date: Primary hyperparathyroidism (HCC) Comment: had 1 affected parathyroid which was removed PAST SURGICAL HISTORY No date: ADENOIDECTOMY PRIMARY Comment: Adenoidectomy x 3 sets : MYRINGOTOMY ASPIR&/EUSTACHIAN TUBE NFLTJ ANES Comment: Myringotomy/tubes 05/28/2011: PARATHYROIDECTOMY/EXPLORATION PARATHYROIDS Comment: Removal of right inferior parathyroid adenoma No date: TONSILLECTOMY PRIMARY/SECONDARY Comment: Tonsillectomy Current Outpatient Medications Medication Sig pantoprazole DR (PROTONIX) 40 mg tablet Take 1 tablet by mouth once daily. (Patient not taking: No sig reported) Current Facility-Administered Medications Medication Dose Route Frequency lactated ringers iv infusion 30 mL/hr INTRAVENOUS CONTINUOUS ALLERGIES: Codeine PERSONAL HISTORY: Social History Tobacco Use Smoking status: Never Smokeless tobacco: Never Substance Use Topics Alcohol use: No Drug use: No FAMILY HISTORY: FAMILY HISTORY Problem Relation Age of Onset Cancer Mother cervical None Father REVIEW OF SYMPTOMS: negative except as noted above PHYSICAL EXAMINATION: General: The patient is 48 year old male, well nourished, well hydrated in no acute distress. The patient is oriented to time, place, and person. VITALS: Blood pressure 156/85, pulse (!) 58, temperature 36.3 C (97.4 F), temperature source Temporal, resp. rate 16, weight 110.2 kg (242 lb 15.2 oz), SpO2 98%. Body mass index is 33.88 kg/m . HEENT: Normal cephalic, ataumatic, pupils are equally round, sclera are anicteric, mucous membranes are moist, oropharynx is clear. Neck has no masses, asymmetry or lymphadenopathy. Thyroid is unremarkable. Respiratory: Clear to auscultation and percussion. Normal respiratory excursion and pattern. Cardiac: Examination is regular rate and rhythm. Abdominal exam: Soft, nontender, with no palpable masses. No hepatosplenomegaly. No palpable hernias. Rectal exam: exam deferred Extremities: no clubbing, cyanosis or edema. No adenopathy. Other: LABORATORY VALUES: As Noted RADIOLOGIC STUDIES: As Noted Assessment IMPRESSION: screen c-scope PLAN: I plan to perform lower endoscopy. We discussed the risks and benefits of the planned endoscopy. I have informed the patient that complications can occur including failure to complete the endoscopy and perforation. The patient had the opportunity to ask questions concerning the planned endoscopy. My staff has also explained the procedure to the patient in understandable terms and has given the patient printed material concerning the procedure. The patient freely consents to surgery. Diagnoses: (Z12.11) Encounter for screening for malignant neoplasm of colon (primary encounter diagnosis) (Z12.11) Colon cancer screening Return to Clinic: The patient is instructed to follow-up with me as needed. Drake Noyola III, MD [facility] 07-05-2024 History and physical note HISTORY AND PHYSICAL Ravi Schilling Cooper 1975 REFERRING PHYSICIAN: Lewis Jimenez MD CHIEF COMPLAINT: No chief complaint on file. HPI: The patient is a 48 year old male referred for endoscopy. Ravi notes no history of colon complaints. The patient notes no history of upper GI complaints. Ravi has not undergone prior endoscopy. PAST MEDICAL HISTORY No date: Primary hyperparathyroidism (HCC) Comment: had 1 affected parathyroid which was removed PAST SURGICAL HISTORY No date: ADENOIDECTOMY PRIMARY <AGE 10 Comment: Adenoidectomy x 3 sets : MYRINGOTOMY ASPIR&/EUSTACHIAN TUBE NFLTJ ANES Comment: Myringotomy/tubes 05/28/2011: PARATHYROIDECTOMY/EXPLORATION PARATHYROIDS Comment: Removal of right inferior parathyroid adenoma No date: TONSILLECTOMY PRIMARY/SECONDARY <AGE 10 Comment: Tonsillectomy Current Outpatient Medications Medication Sig pantoprazole DR (PROTONIX) 40 mg tablet Take 1 tablet by mouth once daily. (Patient not taking: No sig reported) Current Facility-Administered Medications Medication Dose Route Frequency lactated ringers iv infusion 30 mL/hr INTRAVENOUS CONTINUOUS ALLERGIES: Codeine PERSONAL HISTORY: Social History Tobacco Use Smoking status: Never Smokeless tobacco: Never Substance Use Topics Alcohol use: No Drug use: No FAMILY HISTORY: FAMILY HISTORY Problem Relation Age of Onset Cancer Mother cervical None Father REVIEW OF SYMPTOMS: negative except as noted above PHYSICAL EXAMINATION: General: The patient is 48 year old male, well nourished, well hydrated in no acute distress. The patient is oriented to time, place, and person. VITALS: Blood pressure 156/85, pulse (!) 58, temperature 36.3 C (97.4 F), temperature source Temporal, resp. rate 16, weight 110.2 kg (242 lb 15.2 oz), SpO2 98%. Body mass index is 33.88 kg/m . HEENT: Normal cephalic, ataumatic, pupils are equally round, sclera are anicteric, mucous membranes are moist, oropharynx is clear. Neck has no masses, asymmetry or lymphadenopathy. Thyroid is unremarkable. Respiratory: Clear to auscultation and percussion. Normal respiratory excursion and pattern. Cardiac: Examination is regular rate and rhythm. Abdominal exam: Soft, nontender, with no palpable masses. No hepatosplenomegaly. No palpable hernias. Rectal exam: exam deferred Extremities: no clubbing, cyanosis or edema. No adenopathy. Other: LABORATORY VALUES: As Noted RADIOLOGIC STUDIES: As Noted Assessment IMPRESSION: screen c-scope PLAN: I plan to perform lower endoscopy. We discussed the risks and benefits of the planned endoscopy. I have informed the patient that complications can occur including failure to complete the endoscopy and perforation. The patient had the opportunity to ask questions concerning the planned endoscopy. My staff has also explained the procedure to the patient in understandable terms and has given the patient printed material concerning the procedure. The patient freely consents to surgery. Diagnoses: (Z12.11) Encounter for screening for malignant neoplasm of colon (primary encounter diagnosis) (Z12.11) Colon cancer screening Return to Clinic: The patient is instructed to follow-up with me as needed. Drake Noyola III, MD documented in this encounter [facility] 03-10-2024 History of Present illness Narrative HPI Ravi Cooper is a 48 year old male who presents with loss. Patient was recently seen at a hearing aid dealer and sent here for medical clearance patient see me previously for what sounds like sudden sensorineural hearing loss in the left ear when I saw the patient it was definitely sensorineural worse on the left MRI was normal patient did have a history of ear infections. ROS General Weight loss: No Fatigue: No Night sweats:No Cardiac Chest pain:No Fast heart rate:No Swelling in the feet:No Respiratory Short of breath:No Cough:No Wheezing:No Gastrointestinal Nausea:No Vomiting:No Indigestion:No Past medical history, family history, and social history reviewed. PE There were no vitals taken for this visit. General: Patient is awake, alert, NAD. Voice is normal. Skin: normal Eyes: Extraocular motion and Gaze is normal. Ears: Right external auditory canal is normal. TMJ: normal. Right tympanic membranes normal. Atrophic drum on the right no effusion left ear shows tympanosclerosis no effusion Left external auditory canal is normal. Left tympanic membrane normal. Nose: Septum is normal. Turbinates are normal. Nasopharynx:normal Oral Cavity/Oropharynx: Lips normal Dentition normal Tongue normal. Tonsils normal. Palate and uvula normal. Pharynx posterior normal Hypopharynx: Base of tongue normal Pyriform sinus normal. Larynx: Vocal cords normal. Epiglottis normal. Post cricoid normal. Salivary glands: Parotid normal. Submandibular and sublingual normal. Thyroid: normal. Lymphatic/Neck: Lymph nodes normal. Neurologic: Facial nerve normal. Audiogram was reviewed ASSESSMENT/PLAN: 1. Bilateral hearing loss, unspecified hearing loss type - ICD9: 389.9, ICD10: H91.93 Cleared medically for hearing aids Gómez Hoyt MD Findings will be communicated to the referring physician via mail or electronic medical record. documented in this encounter [facility] 02-26-2024 Miscellaneous Notes Please sent prescription for Golytely Bowel Prep to [facility] [address] [phone] Umu Keller documented in this encounter [facility] 02-26-2024 History of Present illness Narrative Contacted patient scheduled colonoscopy 07-05-2024 / Mailed Golytely Bowel Prep Instructions. Umu Keller Additional TC to patient with no answer. Left VM to return call. TAWNYA Robles Left message to call office. 02/25/2024 10:49 AM Reviewed questionnaire, patient is appropriate for open access. Please schedule. Does he prefer Miralax or Golytely prep? Angela Simeon, [facility] OPEN ACCESS QUESTIONNAIRE 1. Are you currently having any new or unusual stomach/gastrointestinal issues at this time such as constipation, diarrhea, abdominal pain, rectal bleeding etc? Occasional bleeding. Thinks this is due to Hemorid. 2. Do you have any difficulty swallowing? No 3. Do you have any implanted devices such as a defibrillator, pacemaker, cardiac stents or deep brain stimulator? No 4. Do you take any Blood thinners such as Coumadin, Plavix, Xarelto, Eliquis, Brilinta or any other blood thinner? No 5. Do you have any new or past cardiac (heart) or pulmonary (lung) issues? No 6. Do you currently use any oxygen? No 7. Have you been hospitalized in the past 6 weeks? No 8. Have you had difficulty with anesthesia previously re: Difficult intubation? No Other difficulty or allergic reaction to anesthesia other than post op N/V? No 9. Are you on dialysis? No 10. Do you have any bleeding disorders such as hemophilia or Factor 5? No 11. Are you an Insulin Dependent Diabetic? No IF ANY OF THE TOP ELEVEN QUESTIONS ARE ANSWERED YES PLEASE SCHEDULE THE PATIENT FOR A CONSULT. N/A 12. Is the patient's BMI 40 or greater? No:There is no height or weight on file to calculate BMI.. 13. Do you take any narcotics or anti-Anxiety medications? No 14. Do you use any illegal or recreational drugs including marijuana? No 15. Any alcohol use: No. 16. Have you been diagnosed with chronic liver disease such as hepatitis or cirrhosis? No 17. Do you have a seizure disorder? No 18. Do you have ulcerative colitis or Crohn's disease? No 19. Are you or could you be ? No 20. Any other important health information we should be made aware of prior to your colonoscopy? No To be completed by LIP: Did patient have MAC anesthesia with a previous endoscopy procedure? No Patient appropriate for Open Access Colonoscopy: Yes: appropriate for Open Access Procedure Checklist: Prior to closing the encounter: Complete questionnaire: Yes Confirm Prep order has been Ordered/Pended: Yes. Patient's procedure could be delayed if not given the script for the prep. Please ensure the prep is escripted to pharmacy or printed. Instructions for the prep will print upon filing or pending this smartset. Please send all open access questionnaires to [facility] Pool #[id number] Filed order but should scheduled for open access after patient answers questionnaire to make sure appropriate for open access documented in this encounter [facility] 05-25-2023 Miscellaneous Notes Reason for call: called stating patient was walking up the stairs and felt a pop in his right knee and fell. Patient is in a lot of pain and can not walk or bear weight. Outcome: Advised to Go to ED Now. verbalized understanding and is agreeable to the plan. Reason for Disposition Followed a knee injury Can't stand (bear weight) or walk Protocols used: Knee Uosf-WGOBK-CP, Knee Bhldtk-UVOYX-ON documented in this encounter [facility] 05-25-2023 Discharge summary Note Date/Time May 25, 2023 11:03pm [facility] Medical Records Department [address] [place] [address] Emergency Department Summary 05/25/23 MR#: [id number] Acct: [id number] Name: RAVI COOPER Rep #:[id number] : 1975 47 From: Rashad Lacy DO PCP: Dr. Lewis Jimenez MD Status:RE ER Location: ED ADDENDUM by Dr. Rashad Lacy DO on 05/25/23 at 2338 Patient has asymptomatic hypertension. He has no headache, chest pain, shortness of breath, no other acute complaints. Patient blood pressure was checked again at disposition, it was 152/89. Patient will record blood pressures once or twice a day for the next week, follow-up with PCP. 05/25/23 2338<Electronically signed by Rashad Lacy DO> Cosigner Signature (if applicable): cc: Dr. Lewis Jimenez MD ~* Signed HPI History of Present Illness Chief Complaint: Lower Extremity Injury Narrative Narrative: Patient is a 47-year-old male who is presenting to the ER with chief complaint of right knee pain. Patient states that he was walking up the steps, then he heard a loud popping noise and had pain in his right knee, lateral aspect. Patient has been having pain in his right knee for the past several months. Patient saw his PCP and has been referred to an orthopedic surgeon who he has anappointment with at the end of May. Patient was seen and evaluated in the office of the PCP, and has been told that he might have a Cooper's cyst. Patientworks at [employer]. 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 Patient's had no other fall, no other injury, no other acute complaints. Patient did not take anything for pain besides his Mobic that he normally takes at nighttime for knee pain. Patient's is at bedside. Patient's can drive home. Patient having difficulty time ambulating and bearing weight on the right knee secondary to pain. No significant swelling. No signs of hemarthrosis. No other acute complaints at this time. [facility] Medical History Back pain Home Medications hydrocodone-acetaminophen 5-325mg 5mg-325mg 1 tab PO Q4H PRN PRN Pain 2 days #10TABLETS 05/25/23 [Rx Last Taken Unknown] Allergy/AdvReac Type Severity Reaction Status Date / Time codeine Allergy HALLUCINATI Verified 05/25/23 22:16 ONS Social History Smoking Status: Never smoker ROS ROS ED ROS Narrative REVIEW OF SYSTEMS: Unless otherwise stated in this report the patient's positiveand negative responses for review of systems for constitutional, eyes, ENT, cardiovascular, respiratory, gastrointestinal, neurological, , musculoskeletal, and integument systems and related systems to the presenting problem are either stated in the history of present illness or were not pertinent or were negative for the symptoms and/or complaints related to the presenting medical problem. EXAM Physical Exam Narrative Exam Narrative: Vital signs reviewed and patient is not hypoxic. General: The patient appears well and in no apparent distress. Patient is resting comfortably on cart. Not toxic, lethargic, or listless. Skin: Warm, dry, no pallor noted. There is no rash noted. Head: Normocephalic, atraumatic Eye: Normal conjunctiva, no drainage, EOMI. PERRL. Ears, Nose, Mouth, and Throat: oral mucosa is moist. Nares patent. Cardiovascular: Regular Rate and Rhythm, no murmurs, gallops, or rubs Respiratory: Patient is in no distress, no accessory muscle use, lungs are clearto auscultation, no wheezing, rales or rhonchi Musculoskeletal: The patient has full range of motion of all extremities and joints with no difficulty besides the right knee. Patient has flexion of the right knee to approximately 45 degrees, he does have full extension. Patient has no pain with valgus stress, he does have mild to moderate pain with varus stress. I do not appreciate a anterior drawer sign or posterior drawer sign on this patient's right knee at this time. No signs of hemarthrosis. Patient doeshave some inferior superior edema. Patient does have mild to moderate pain withactive range of motion of the right knee. Range of motion of left knee was compared to the right knee. Unable to completely assess ROM in the ER visit secondary to pain patient has no motor, no sensory deficits. No rash. Neurological: A&O x4, normal speech, no focal neurological deficits. Psychiatric: Cooperative Const Vital Signs: 05/25/23 22:14 05/25/23 23:26 Temperature 98 F Temperature Source Temporal Pulse Rate 78 Respiratory Rate 16 Blood Pressure 145/112 H 152/89 H Blood Pressure Mean 123 110 Pulse Ox 98 Oxygen Delivery Method Room Air MDM MDM MDM Narrative Medical decision making narrative: Patient had a elastic knee brace on his right knee prior to arrival. Patient was placed in knee immobilizer and crutches to the right knee. Splint was assisted with Dr. Lacy. The patient was neurovascular intact before and after the splint was placed. The affected bones/injured area had proper alignment in a splint. Education on splint care at home was given at bedside. Patient and family had no questions at disposition. Work note was given. Patient will follow-up with orthopedic surgeon scheduled at the end of May and another orthopedic surgeon name and number has been provided at discharge. No questions. Work note given Treatment and Re-Evaluation :: Patient's right knee x-ray was evaluated and examined by Dr. Lacy. Patient has no signs of acute fracture, dislocation, or acute abnormality. Small joint effusion is noted. Discharge Plan Triage Chief Complaint: Lower Extremity Injury ED Provider: Rashad Lacy Dx/Rx/DC Orders Clinical Impression: Acute internal derangement of right knee, Acute pain of right knee Instructions: How Your Knee Works, Treating?Strains and Sprains, Knee Range of Motion Exercises, ED Meniscal Injury Knee Poss, ED Knee Pain of Uncertain Cause,ED RICE Prescriptions: New hydrocodone-acetaminophen [hydrocodone-acetaminophen] 5-325 mg tablet 1 tab PO Q4H PRN PRN (Reason: Pain) 2 Days Qty: 10 0RF Stand Alone Forms: ED Work / School Excuse Primary Care Provider: Lewis Jimenez Referrals: Lewis Jimenez MD [Primary Care Provider] - Rafal Gardner DO [Med Staff - Active Staff] - Disposition Disposition: Home, Self Care What to do if you have Problems For any increased pain, shortness of breath, bleeding, nausea or vomiting, chestpain, or any unexpected problems, contact your Primary Care Provider. Call [facility] ([phone]) or report to the closest Emergency Room. Call 911 if necessary. 05/25/238 <Electronically signed by Rashad Lacy DO> Cosigner Signature (if applicable): CC: Dr. Lewis Jimenez MD ~ Signed [facility] Work Phone: 1(712) 740-725506-21-2023 History of Present illness Narrative* James Wood APRN.EDUCATION AND OUTREACH COORDINATOR - 05/07/2023 11:28 AM EDT Subjective HPI HPI Ravi Cooper is a 47 year old male who presents today for CC of right knee pain. This started1 week ago. Has tried otc ibuprofen with relief. Symptoms are worsened by rom/walking. Denies injury. Denies numbness of right leg, some tingling noted.. .Patient presents with: Right Knee Pain: Behind R knee pain x1 week, no known cause or injury PAST MEDICAL HISTORY Diagnosis Date Primary hyperparathyroidism (HCC) had 1 affected parathyroid which was removed PAST SURGICAL HISTORY Procedure Laterality Date ADENOIDECTOMY PRIMARY <AGE 10 Adenoidectomy MYRINGOTOMY ASPIR&/EUSTACHIAN TUBE NFLTJ ANES x 3 sets Myringotomy/tubes PARATHYROIDECTOMY/EXPLORATION PARATHYROIDS 05/28/2011 Removal of right inferior parathyroid adenoma TONSILLECTOMY PRIMARY/SECONDARY <AGE 10 Tonsillectomy ALLERGIES Codeine MEDICATIONS pantoprazole DR (PROTONIX) 40 mg tablet Take 1 tablet by mouth once daily. (Patient not taking: Reported on 04/10/2022 ) naproxen sodium (ALEVE) 220 mg tablet Take 1 tablet by mouth twice daily with meals. TAKE WITH FOOD FAMILY HISTORY Problem Relation Age of Onset Cancer Mother cervical None Father Social History Tobacco Use Smoking status: Never Smokeless tobacco: Never Substance Use Topics Alcohol use: No Drug use: No ROS Objective Blood pressure 130/80, pulse 70, temperature 36.3 C (97.3 F), resp. rate 18, weight 111.4 kg (245 lb 9.6 oz), SpO2 98 %. Physical Exam Constitutional: General: He is not in acute distress. Appearance: He is not toxic-appearing or diaphoretic. HENT: Head: Normocephalic and atraumatic. Pulmonary: Effort: Pulmonary effort is normal. No accessory muscle usage or respiratory distress. Musculoskeletal: Right knee: No swelling, deformity, effusion, erythema, ecchymosis, lacerations or bony tenderness.Decreased range of motion. Tenderness present over the lateral joint line. No LCL laxity or MCL laxity. Left knee: No LCL laxity or MCL laxity. Neurological: Mental Status: He is alert and oriented to person, place, and time. ASSESSMENT/PLAN: 1. Acute pain of right knee - ICD9: 719.46, ICD10: M25.561 -no bony abnormality noted on xray -given stretches/exercises -Rest, Ice, Compression, Elevation discussed -follow up with primary care if symptoms persist/worsen in 10-14 days - XR KNEE GENERAL 4V AP BOTH/PA BOTH/LAT/MERC RIGHT IMPRESSION: Findings are suggestive of mild degenerative changes in the right knee. Dictated by : RUT COLUNGA MD - PREDNISONE 10 MG TABLET James Wood APRN.EDUCATION AND OUTREACH COORDINATOR [facility] History of Present illness Narrative* Tanja Ulrich RT(R) - 05/07/2023 11:10 AM EDT Radiology Service Progress Note PATIENT NAME: Ravi Cooper DATE OF SERVICE: May 07, 2023 TIME: 11:19 AM PATIENT IDENTITY VERIFICATION COMPLETED USING TWO (2) IDENTIFIERS: Name and Date of confirmedby patient verbally. FALL SCREENING: Has the patient had 2 falls in the last year or 1 fall with injury or currently using an Ambulatory Assistive Device (Walker, Cane, Wheelchair, Crutches, etc.)? No PATIENT GENDER DATA: Male PATIENT RELEVANT IMPLANT DATA REVIEWED: Not Applicable RADIOLOGY DEPARTMENT: General X-ray: Exam(s) Completed: Lower Extremity X- Ray(s): Knee, AP / Lat / Tunne / Merchant Right and Wt. Bearing PERIPHERAL IV DATA: Not applicable SIGNED BY: RT Shady(R) May 07, 2023 11:19 AM [facility] History of Present illness Narrative* Gómez Hoyt MD - 04/10/2022 10:27 AM EDT HPI Ravi Cooper is a 46 year old male who presents with follow-up cough. Patient states the Protonixhas helped his cough significantly. Patient denies any further drainage. Patient however noticed atwork popping in his left ear and vertigo patient has had on and off vertigo in the past and has been doing fine ever since. ROS General Weight loss: No Fatigue: No Night sweats:No Cardiac Chest pain:No Fast heart rate:No Swelling in the feet:No Respiratory Short of breath:No Cough:No Wheezing:No Gastrointestinal Nausea:No Vomiting:No Indigestion:No Past medical history, family history, and social history reviewed. PE There were no vitals taken for this visit. General: Patient is awake, alert, NAD. Voice is normal. Skin: normal Eyes: Extraocular motion and Gaze is normal. Ears: Right external auditory canal is normal. TMJ: normal. Right tympanic membranes normal. Left external auditory canal is normal. Left tympanic membrane normal. Nose: Septum is normal. Turbinates are normal. Nasopharynx:normal Oral Cavity/Oropharynx: Lips normal Dentition normal Tongue normal. Tonsils normal. Palate and uvula normal. Pharynx posterior normal Hypopharynx: Base of tongue normal Pyriform sinus normal. Larynx: Vocal cords normal. Epiglottis normal. Post cricoid normal. Salivary glands: Parotid normal. Submandibular and sublingual normal. Thyroid: normal. Lymphatic/Neck: Lymph nodes normal. Neurologic: Facial nerve normal. Audiogram reviewed MRI of the ASSESSMENT/PLAN: 1. Sensorineural hearing loss (SNHL) of left ear with unrestricted hearing of right ear - ICD9: 389.15, ICD10: H90.42 (primary diagnosis) 2. Cough - ICD9: 786.2, ICD10: R05.9 3. Laryngitis - ICD9: 464.00, ICD10: J04.0 4. GERD without esophagitis - ICD9: 530.81, ICD10: K21.9 5. Vertigo - ICD9: 780.4, ICD10: R42 Continue Protonix follow-up 3 months Gómez Hoyt MD Findings will be communicated to the referring physician via mail or electronic medical record. [facility] History of Present illness Narrative* Manohar Nieto RT(R) - 10/10/2021 2:45 PM EST Radiology Service Progress Note PATIENT NAME: Ravi Cooper DATE OF SERVICE: October 10, 2021 TIME: 2:21 PM PATIENT IDENTITY VERIFICATION COMPLETED USING TWO (2) IDENTIFIERS: Name and Date of confirmedby patient verbally. FALL SCREENING: Has the patient had 2 falls in the last year or 1 fall with injury or currently using an Ambulatory Assistive Device (Walker, Cane, Wheelchair, Crutches, etc.)? No PATIENT GENDER DATA: Male PATIENT RELEVANT IMPLANT DATA REVIEWED: Not Applicable RADIOLOGY DEPARTMENT: General X-ray: Exam(s) Completed: Chest X-Ray PERIPHERAL IV DATA: Not applicable SIGNED BY: RT Lor(R) October 10, 2021 2:21 PM [facility]* Diagnosis Sensorineural hearing loss (SNHL) of left ear with unrestricted hearing of right ear- Primary Cough Laryngitis Acute laryngitis, without mention of obstruction GERD without esophagitis Esophageal reflux Vertigo Dizziness and giddiness documented in this [facility]* Diagnosis Acute pain of right knee- Primary documented in this [facility] noteNo assessment information availableWMercy Health [facility] Work Phone: Evaluation note* Diagnosis Bilateral hearing loss, unspecified hearing loss type- Primary documented in this encounter [facility] note* Diagnosis Colon cancer screening- Primary Special screening for malignant neoplasms, colon Special screening for malignant neoplasms, colon documented in this encounter [facility] note* Diagnosis Encounter for screening for malignant neoplasm of colon- Primary Special screening for malignant neoplasms, colon Colon cancer screening Special screening for malignant neoplasms, colon documented in this encounter [facility] note* Diagnosis Sensorineural hearing loss (SNHL) of left ear with unrestricted hearing of right ear documented in this encounter [facility] note* Diagnosis Sinobronchitis- Primary Unspecified sinusitis (chronic) documented in this encounter [facility] note* Diagnosis Routine medical exam- Primary Routine general medical examination at a health care facility Snoring Other dyspnea and respiratory abnormality Witnessed episode of apnea Class 1 obesity due to excess calories with body mass index (BMI) of 34.0 to 34.9 in adult, unspecified whether serious comorbidity present S/P subtotal parathyroidectomy Other postprocedural status Hiatal hernia Diaphragmatic hernia without mention of obstruction or gangrene Gastroesophageal reflux disease without esophagitis Esophageal reflux History of primary hyperparathyroidism Elevated glucose Other abnormal glucose Screening, lipid Screening for lipoid disorders Screening for depression Encounter for screening examination for other mental health and behavioral disorders documented in this encounter [facility] Discharge instructions Additional Instructions Follow-up with primary care physician. Return back to the ED if symptoms change or worsen.[facility] Work Phone: Reason for referral (narrative)* Diagnostic Procedure Only (Urgent) - Closed Specialty Diagnoses / Procedures Referred By Reina coles Referred To Contact XR IMAGING Diagnoses Acute pain of right knee Procedures XR KNEE GENERAL 4V AP BOTH/PA BOTH/LAT/MERC RIGHT RADIOLOGIC EXAM KNEE COMPLETE 4/MORE VIEWS James Wood, EDUCATION AND OUTREACH COORDINATOR [address] [place] [address] Xr Imaging Referral ID Status Reason Start Date Expiration Date V isits Requested Visits Authorized [id number] Closed Auto-Generate d Referral 05/07/2023 06/05/2024 1 1 [facility] for referral (narrative)* Outpatient Procedure (Routine) - Pending Review Specialty Diagnoses / Procedures Referred By Contac t Referred To Contact [facility] Diagnoses Colon cancer screening Procedures COLONOSCOPY SCREENING COLONOSCOPY FLX DX W/COLLJ SPEC WHEN Lewis Guzman MD [address] [place] [address] [facility] [place] [address] [place] [id number] Referral ID Status Reason Start Date Expiration Date Visits Requested Visits Authorized [id number] Pending Review Auto-Generat ed Referral 02/23/2024 02/22/2025 1 1 [facility] for referral (narrative)* Outpatient Procedure (Routine) - Closed Specialty Diagnoses / Procedures Referred By Contcelestino t Referred To Contact [facility] Diagnoses Colon cancer screening Procedures COLONOSCOPY SCREENING COLONOSCOPY FLX DX W/COLLJ SPEC WHEN Lewis Guzman MD [address] [place] [address] [facility] [place] [address] [place] [address] Referral ID Status Reason Start Date Expiration Date V isits Requested Visits Authorized [id number] Closed Auto-Generate d Referral 05/21/2024 11/16/2024 1 1 [facility] for referral (narrative)No reason for referral information availableWMercy Health [facility] Work Phone: Reason for visit Narrative* Outpatient Procedure (Routine) - Closed Specialty Diagnoses / Procedures Referred By Contcelestino t Referred To Contact [facility] Diagnoses Colon cancer screening Procedures COLONOSCOPY SCREENING COLONOSCOPY FLX DX W/COLLJ SPEC WHEN Lewis Guzman MD [address] [place] [address] [facility] [place] [address] [place] [address] Referral ID Status Reason Start Date Expiration Date V isits Requested Visits Authorized [id number] Closed Auto-Generate d Referral 05/21/2024 11/16/2024 1 [facility] Diagnostic Procedure Only (Urgent) - Closed Specialty Diagnoses / Procedures Referred By Contac t Referred To Contact XR IMAGING Diagnoses Acute pain of right knee Procedures XR KNEE GENERAL 4V AP BOTH/PA BOTH/LAT/MERC RIGHT RADIOLOGIC EXAM KNEE COMPLETE 4/MORE VIEWS James Wood APRN.EDUCATION AND OUTREACH COORDINATOR [address] [facility] [place] [address] [place] [address] Referral ID Status Reason Start Date Expiration Date V isits Requested Visits Authorized [id number] Closed Auto-Generate d Referral 05/07/2023 06/05/2024 1 1 [facility] Reason for Referral * ear FB removedear FB removed Summary Purpose Family History No Family History Records FoundNo Family History Records FoundNo Family History Records Found Advance Directives Advance Directive Response Recorded Date/ Time Living Will Yes May 25, 2023 1 1:23pm Power of Heel Pricker No May 25, 2023 11:23pm Advance Directive Response Recorded Date/ Time Do you have a Healthcare Power of Heel Pricker? No April 25, 2025 11:33am Chief Complaint and Reason for Visit Chief Complaint BACK PAIN KNEE PAIN Chief Complaint BACK PAIN KNEE PAIN Pain in right lower leg Chief Complaint Admit Date cp April 25, 2025 10:16 am Additional Source Comments Source Comments (unrecognize d section and content) In the event this informatio n is protected by the Federal Confidentiality of Alcohol and Drug Abuse Patient Records regulations: The Federal rules restrict any use of the information to criminally investigate or prosecute any alcohol or drug abuse patient.[facility] HospitalIn the event this information is protected by the Federal Confidentiality of Alcohol and Drug Abuse Patient Records regulations: The Federal rules restrict any use of the information to criminally investigate or prosecute any alcohol or drug abuse patient.[facility] HospitalIn the event this information is protected by the Federal Confidentiality of Alcohol and Drug Abuse Patient Records regulations: The Federal rules restrict any use of the information to criminally investigate or prosecute any alcohol or drug abuse patient.[facility] HospitalIn the event this information is protected by the Federal Confidentiality of Alcohol and Drug Abuse Patient Records regulations: The Federal rules restrict any use of the information to criminally investigate or prosecute any alcohol or drug abuse patient.[facility] HospitalIn the event this information is protected by the Federal Confidentiality of Alcohol and Drug Abuse Patient Records regulations: The Federal rules restrict any use of the information to criminally investigate or prosecute any alcohol or drug abuse patient.[facility] HospitalIn the event this information is protected by the Federal Confidentiality of Alcohol and Drug Abuse Patient Records regulations: The Federal rules restrict any use of the information to criminally investigate or prosecute any alcohol or drug abuse patient.[facility] HospitalIn the event this information is protected by the Federal Confidentiality of Alcohol and Drug Abuse Patient Records regulations: The Federal rules restrict any use of the information to criminally investigate or prosecute any alcohol or drug abuse patient.[facility] HospitalIn the event this information is protected by the Federal Confidentiality of Alcohol and Drug Abuse Patient Records regulations: The Federal rules restrict any use of the information to criminally investigate or prosecute any alcohol or drug abuse patient.[facility] HospitalIn the event this information is protected by the Federal Confidentiality of Alcohol and Drug Abuse Patient Records regulations: The Federal rules restrict any use of the information to criminally investigate or prosecute any alcohol or drug abuse patient.[facility] HospitalIn the event this information is protected by the Federal Confidentiality of Alcohol and Drug Abuse Patient Records regulations: The Federal rules restrict any use of the information to criminally investigate or prosecute any alcohol or drug abuse patient.[facility] HospitalIn the event this information is protected by the Federal Confidentiality of Alcohol and Drug Abuse Patient Records regulations: The Federal rules restrict any use of the information to criminally investigate or prosecute any alcohol or drug abuse patient.[facility] Reason for Visit (unrecogniz ed section and content) Reason Comments Hearing Loss in left ear continue s after last exam 4 months ago. Had Audio and MRI. Dizziness vertigo, left ear po pped very loud 3-4 weeks ago after coming down from high place. Reason Comments Right Knee Pain Behind R knee pain x 1 week, no known cause or injury Reason Comments Knee Injury Reason Comments medcical clearance for hearing aids Had testing at [facility] Reason Onset Date Comments colorectal cancer screening 02/23/2024 Reason Comments Radio Gen RMP Reason Comments Barky Cough Reason Comments Yearly Exam Care Teams (unrecognized sec tion and content) Data Librarian Relationship Specialty Start Date End Date Lewis Jimenez MD [address] [place], [place] [address] PCP - General Internal Medicine 06/15/18 Data Librarian Relationship Specialty Start Date End Date Lewis Jimenez MD [address] [place], [place] [id number] PCP - General Internal Medicine 06/15/18 Team Status: Active Member Role Status Dates Dr. Rashad Kate MD Family Provider Active Dr. Lewis Jimenez MD Primary Care Provider Active Team Status: Inactive Member Role Status Dates Dr. Lewis Jimenez MD Primary Care Provider Active Dr. Chinyere Leon DO Attending Provider, Emergency P rovider Active Team Status: Inactive Member Role Status Dates Dr. Lewis Jimenez MD Primary Care Provider Active Dr. Rashad Lacy DO Emergency Provider Active Data Librarian Relationship Specialty Start Date End Date Lewis Jimenez MD [address] [place], [place] [id number] PCP - General Internal Medicine 06/15/18 Team Status: Active Member Role Status Dates Dr. Lewis Jimenez MD Primary Care Provider Active Dr. Jourdan Mays MD Attending Provider Active Team Status: Inactive Member Role Status Dates Dr. Lewis Jimenez MD Primary Care Provider Active Jamee CARTWRIGHT, PA Attending Provider, Referring Pr ovider Active Team Status: Inactive Member Role Status Dates Dr. Lewis Jimenez MD Primary Care Provider Active Dr. Rashad Lacy DO Attending Provider, Emergency Pro vider Active Data Librarian Relationship Specialty Start Date End Date Lewis Jimenez MD [address] [place], [place] [id number] PCP - General Internal Medicine 06/15/18 Data Librarian Relationship Specialty Start Date End Date Lewis Jimenez MD [address] [place], [place] [address] PCP - General Internal Medicine 06/15/18 Data Librarian Relationship Specialty Start Date End Date Lewis Jimenez MD [address] [place], [place] [id number] PCP - General Internal Medicine 06/15/18 Data Librarian Relationship Specialty Start Date End Date Lewis Jimenez MD [address] [place], [place] [id number] PCP - General Internal Medicine 06/15/18 Data Librarian Relationship Specialty Start Date End Date Lewis Jimenez MD [address] [place] [address] PCP - General Internal Medicine 06/15/18 Data Librarian Relationship Specialty Start Date End Date Lewis Jimenez MD [address] [place] [address] PCP - General Internal Medicine 06/15/18 Data Librarian Relationship Specialty Start Date End Date Lewis Jimenez MD [address] [place] [address] PCP - General Internal Medicine 06/15/18 Johnny Maddox, MEAT APPRENTICE.HAT AND CAP SEWER [address] [place] [address] [facility] 10/25/24 Rebecca Sanders MEAT APPRENTICE.EDUCATION AND OUTREACH COORDINATOR [address] [place] [address] [facility] Internal Medicine 02/08/25 Data Librarian Relationship Specialty Start Date End Date Lewis Jimenez MD [address] [place] [address] PCP - General Internal Medicine 06/15/18 Johnny Maddox, MEAT APPRENTICE.HAT AND CAP SEWER [address] [place] [address] [employer] [facility] Internal Medicine 10/25/24 Rebecca Sanders MEAT APPRENTICE.EDUCATION AND OUTREACH COORDINATOR [address] [place] [address] [employer] [facility] Internal Medicine 02/08/25 Team Status: Active Member Role Status Dates Dr. Lewis Jimenez MD Primary Care Provider Active Team Status: Inactive Member Role Status Dates Dr. Lewis Jimenez MD Primary Care Provider Active Start: April 25, 2025 End: April 25, 2025 Dr. Vinny Enciso DO Emergency Provider Activ e Start: April 25, 2025 End: April 25, 2025 <item> Privacy Markings (unrecogniz ed section and content) Section Author: Loree Young PROHIBITION ON REDISCLOSURE OF CONFIDENTIAL INFORMATION This notice accompanies a disclosure of information concerning a client made to you with the consent of such client. (unrecognized sect ion and content) No Status Records FoundNo Status Records FoundNo Status Records Found INFORMATION SOURCE (unrecogn ized section and content) DATE CREATED AUTHOR 08/22/2022 [facility] DATE CREATED AUTHOR AUTHOR'S ORGANIZ ATION 07/05/2023 [facility] DATE CREATED AUTHOR AUTHOR'S ORGANIZ ATION 03/31/2025 [facility] Goals (unrecognized section and content) Goals may be documented in a n alternate sectionGoals may be documented in an alternate sectionGoals may be documented in an alternate section FOR RECORDS PERTAINING TO PATIENTS WHO ARE OR HAVE BEEN ENROLLED IN A CHEMICAL DEPENDENCY/SUBSTANCEABUSE PROGRAM, SOME INFORMATION MAY BE OMITTED. This clinical summary was aggregated from multiple sources. Caution should be exercised in using it in the provision of clinical care. This summary normalizes information from multiple sources, and as a consequence, information in this document may materially change the coding, format and clinical context of patient data. In addition, data may be omitted in some cases. CLINICAL DECISIONS SHOULD BE BASED ON THE PRIMARY CLINICAL RECORDS. [employer] provides no warranty or guarantee of the accuracy or completeness of information in this document.
== END 2025-04-25 14:23 | disposition home or self-care (01) ==
PROVIDERS: Emergency Provider Surgery; PCP Internal Medicine; Visit Provider Surgery
DX: R07.9 Chest pain, unspecified (principal); I10 Essential (primary) hypertension
CPT/HCPCS: 71046; 80048; 84484; 85025; 85379; 93005; 99284; A4216